=== PATIENT | female | born 1960 | race Caucasian/White ===

== ENCOUNTER → 2016-12-11 | Outpatient (CLI) | payer OTHER ==
--- NOTE | 2016-12-19 13:06 | EM ---
DATE OF SERVICE: 12/11/2016 AGE: 56Y SEX: F INDICATIONS: The patient was monitored for 24 hours. The baseline rhythm appeared to be a sinus mechanism with a minimal heart rate of 44 beats per minute, max heart rate 111 beats per minute, and average heart rate of 64 beats per minutes. Ventricular ectopic events were reported in less than 1% of the total beats count. Supraventricular ectopic events since were reported in less than 1% of the total beats. The Patient had no evidence of sinus falls or sinus arrest seen. No evidence of any sinus tachy or abhishek arrhythmia as well. CONCLUSION: 1. This is a 24 hour Holter monitor. 2. Sinus rhythm as the baseline mechanism. 3. Rare ventricular ectopic events. 4. Rare supraventricular ectopic events. 5. No evidence of sinus pause or sinus arrest. 6. There is no evidence of tachy or bradyarrhythmia.
== END | disposition home or self-care (01) ==
LOC: RADNMMAIN 12:18
PROVIDERS: ATTEND Family Medicine
DX: R00.2 Palpitations (principal)
CPT/HCPCS: 93225; 93226

== ENCOUNTER → 2017-01-22 | Outpatient (CLI) | payer OTHER ==
--- NOTE | 2017-01-22 11:21 | P.STRESS ---
- Stress Test Note Stress Test Results/Findings: Exam Performed: stress echo exercise Exam Date: 01/22/17 Height: 5 ft Weight: 51.71 kg Protocol: Stress Echo Stage: 111 Duration of Exercise: 6 Resting Heart Rate: 78 Resting Blood Pressure: 131/86 Maximum Achieved Heart Rate: 138 Maximum Achieved Blood Pressure: 170/79 85% PMHR: 84 100% PMHR: 93 METS: 10.3 Technologist Comment: Stress Test Results/Findings: this is a stress echo on Katharine Grey [id number] to 1 Baseline EKG shows sinus rhythm normal lites normal intervals patient exercised on Henry protocol for a total of 6 minutes achieving 7 metastases 85% of predicted maximum heart rate without chest pain or diagnostic ST segment depression patient PVCs are noted during the exercise baselineecho shows normal left ventricle size wall motion systolic function.post exercise there is normal hyperdynamic response of all segments of myocardium noted Average exercise tolerance Negative stress test by EKG criteria Negative stress echo
--- NOTE | 2017-01-22 11:43 | ECHOF ---
Referral Reason:R07.9 chest pain MEASUREMENTS -------- HEIGHT: 152.4 cm WEIGHT: 51.7 kg BP: 131/86 RVIDd: 2.7 cm (< 3.3) IVSd: 0.8 cm (0.6 - 1.1) LVIDd: 3.7 cm (3.9 - 5.3) LVPWd: 0.8 cm (0.6 - 1.1) IVSs: 1.3 cm LVIDs: 2.7 cm LVPWs: 1.3 cm Ao Diam: 2.5 cm (2.0 - 3.7) AV Cusp: 1.5 cm (1.5 - 2.6) LA Diam: 2.3 cm (2.7 - 3.8) MV EXCURSION: 17.484 mm (> 18.000) MV EF SLOPE: 128 mm/s (70 - 150) EPSS: 0.4 cm FINDINGS -------- Sinus rhythm. This was a technically good study. Overall left ventricular systolic function is normal with, an EF between 60 - 65 %. The right ventricle is normal in size and function. Normal LA size by volume 22+/-6 ml/m2. The right atrium is normal in size. The aortic valve is trileaflet, and appears structurally normal. No aortic stenosis or regurgitation. The mitral valve leaflets are mildly thickened. There is trace to mild mitral regurgitation. Trace tricuspid regurgitation present. There is no evidence of pulmonary hypertension. The right ventricular systolic pressure, as measured by Doppler, is {RVSP}. Pulmonic valve appears structurally normal. The aortic root size is normal. Normal inferior vena cava with normal inspiratory collapse consistent with estimated right atrial pressure of 5 mmHg. There is a trivial pericardial effusion present. CONCLUSIONS -------- 1. Sinus rhythm. 2. The right ventricular systolic pressure, as measured by Doppler, is {RVSP}. 3. The aortic root size is normal. 4. There is a trivial pericardial effusion present. 5. This was a technically good study. 6. Overall left ventricular systolic function is normal with, an EF between 60 - 65 %. 7. Normal LA size by volume 22+/-6 ml/m2. 8. The aortic valve is trileaflet, and appears structurally normal. No aortic stenosis or regurgitation. 9. The mitral valve leaflets are mildly thickened. 10. There is trace to mild mitral regurgitation. 11. Trace tricuspid regurgitation present. 12. There is no evidence of pulmonary hypertension. [employer] ADVISOR: Sean Eugene RDCS
--- NOTE | 2017-01-22 14:26 | ECHOS ---
Stress Test Results/Findings: Exam Performed: stress echo exercise Exam Date: 01/22/17 Height: 5 ft Weight: 51.71 kg Protocol: Stress Echo Stage: 111 Duration of Exercise: 6 Resting Heart Rate: 78 Resting Blood Pressure: 131/86 Maximum Achieved Heart Rate: 138 Maximum Achieved Blood Pressure: 170/79 85% PMHR: 84 100% PMHR: 93 METS: 10.3 Technologist Comment: Stress Test Results/Findings: this is a stress echo on Katharine Grey [id number] to 1 Baseline EKG shows sinus rhythm normal lites normal intervals patient exercised on Henry protocol for a total of 6 minutes achieving 7 metastases 85% of predicted maximum heart rate without chest pain or diagnostic ST segment depression patient PVCs are noted during the exercise baseline echo shows normal left ventricle size wall motion systolic function.post exercise there is normal hyperdynamic response of all segments of myocardium noted Average exercise tolerance Negative stress test by EKG criteria Negative stress echo MTDD
== END | disposition home or self-care (01) ==
LOC: RADNMMAIN 09:13
PROVIDERS: ATTEND Family Medicine
DX: I08.1 Rheumatic disorders of both mitral and tricuspid valves (principal)
CPT/HCPCS: 93017; 93306; 93350

== ENCOUNTER → 2017-07-09 | Outpatient (CLI) | payer OTHER ==
--- NOTE | 2017-07-09 09:23 | MM ---
Reason for exam: additional evaluation requested from abnormal screening. Last mammogram was performed less than 1 month ago. History: Patient is postmenopausal and has history of other cancer at age 50. Benign left breast aspiration of the left breast, April 23, 2012. Benign cyst aspiration of the left breast, 1994. Took hormonal contraceptives for 2 years beginning at age 20. Physical Findings: Nurse Summary: 1.5cm nodule in the left breast at 4 o'clock (nurse dw). MG 3D Work Up W/Cad LT ML, CC with magnification, and ML with magnification view(s) were taken of the left breast. Prior study comparison: July 04, 2017, bilateral MG 3d screening mammo w/cad. May 15, 2016, bilateral MG 3d screening mammo w/cad. Finding #1: There is a 14 mm obscured oval mass in the lower quadrant, anterior position of the left breast. Finding #2: There are intermediate concern, suspicious fine pleomorphic calcifications in the lower outer quadrant, anterior position of the left breast. These results were verbally communicated with the patient and result sheet given to the patient on 07/09/17. ASSESSMENT: Incomplete: need additional imaging evaluation, BI-RAD 0 RECOMMENDATION: Ultrasound of the left breast.
--- NOTE | 2017-07-09 09:32 | USB ---
Reason for exam: additional evaluation requested from abnormal screening. History: Patient is postmenopausal and has history of other cancer at age 50. Benign left breast aspiration of the left breast, April 23, 2012. Benign cyst aspiration of the left breast, 1994. Took hormonal contraceptives for 2 years beginning at age 20. US Breast Workup Limited LT Left breast ultrasound demonstrates a 1.7 x 1.7 x 1.2cm irregular lesion with calcifications at 3:30. Area not definate mass, may correlate with mammogram but suspicious calcification better seen on mammogram. These results were verbally communicated with the patient and result sheet given to the patient on 07/09/17. ASSESSMENT: High Suspicious, BI-RAD 4C RECOMMENDATION: Stereotactic core biopsy of the left breast. Called Dr. James with mammographic findings and has scheduled an appointment for the patient for 07/10/17 at 10:[address] Bell. PRELIMINARY REPORT CALLED AND FAXED TO DR. BELL ON 07/09/17. [facility]
== END | disposition home or self-care (01) ==
LOC: RADMAMWWP 06:55
PROVIDERS: ATTEND Family Medicine
DX: R92.8 Other abnormal and inconclusive findings on diagnostic imaging of breast (principal)
CPT/HCPCS: 76642; G0206; G0279

== ENCOUNTER → 2017-07-17 | Day surgery (SDC) | payer OTHER ==
[2017-07-17 07:27] VITALS: RESP 16; BMI 22.4
--- NOTE | 2017-07-17 09:26 | PCN ---
PROCEDURE NOTE PREPROCEDURE DIAGNOSIS: Mammographic abnormality with suspicious calcifications noted in the left breast in the lower outer quadrant. POSTPROCEDURE DIAGNOSIS: Mammographic abnormality with suspicious calcifications noted in the left breast in the lower outer quadrant. PROCEDURE: Stereotactic core biopsy. SURGEON: Dr. James. PROCEDURE: The patient is a 57-year-old white female who presented with a mammographic abnormality noted in her left breast. A breast examination was performed. In the right breast, no dominant mass or nodules of concern were noted. In the left breast, some slight fullness was noted in the left lower outer quadrant, but no definitive mass. No axillary adenopathy was noted in either axilla. The patient had also undergone an ultrasound and the ultrasound revealed an area of irregularity, which was felt may correspond with the mammographic abnormality, but no discrete definitive mass was identified. Therefore, it was recommended that the patient undergo a stereotactic core biopsy of the left breast as the area of concern was felt to be seen best on the mammogram. Bilateral mammograms were reviewed and the patient was noted to have an area of pleomorphic calcifications in the left breast in the lower outer quadrant region. The patient was therefore brought to the stereotactic unit and the area in the left breast was targeted using a CC from below approach. The skin was prepped using Betadine and 1% local anesthesia was used to anesthetize the area of concern. A vacuum assisted biopsy device was used and driven to the correct coordinates. Pre-fire and post-fire x-rays were obtained and multiple core biopsies were obtained. The specimen of the radiograph revealed the area of concern had been sampled with microcalcifications in the specimen. A SecurMark marker was then placed and radiograph was performed to assure that it had been deployed. Following this, the specimen was sent for pathology. After discussion with the radiologist, the patient will undergo an ultrasound next week to assure that the area we sampled was indeed consistent with the area of irregularity seen on ultrasound. If not, further evaluation may be necessary. The patient will follow with Dr. James in 1 week. MMODL / IJN: [id number] /
[2017-07-17 09:35] VITALS: BP 126/84; PULSE 65; TEMP 97.8
--- NOTE | 2017-07-17 13:28 | MM ---
EXAMINATION TYPE: MG stereo VAD BX LT DATE OF EXAM: 07/17/2017 COMPARISON: NONE CLINICAL HISTORY: Post ultrasound-guided core biopsy TECHNIQUE: 2 views of the left breast post clip placement. FINDINGS: Clip is within the expected region of the biopsy. IMPRESSION: 1. Successful clip placement postbiopsy. Recommendations: 1. Recommendations are pending pathology results. 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 SEE SURGICAL PATHOLOGY CANCER CASE SUMMARY AND COMMENT. Recommendation Surgical consult. (treatment and follow up) YUED
== END ==
LOC: RADMAMWWP 06:51
PROVIDERS: ATTEND Surgery
DX: D05.12 Intraductal carcinoma in situ of left breast (principal)
CPT/HCPCS: 88305; 88342; 88341; 19081; A4648; J2001

== ENCOUNTER → 2017-07-24 | Outpatient (CLI) | payer OTHER ==
--- NOTE | 2017-07-24 11:32 | USB ---
Reason for exam: clinical finding. History: Patient is postmenopausal and has history of other cancer at age 50. Benign left breast aspiration of the left breast, April 23, 2012. Benign cyst aspiration of the left breast, 1994. Took hormonal contraceptives for 2 years beginning at age 20. Physical Findings: Nurse did not find any significant physical abnormalities on exam. US Breast LT Left breast ultrasound includes all four quadrants, the retroareolar region and axilla. Finding demonstrates a 0.3 x 0.3 x 0.4cm lesion too small to characterize at 1 o'clock. Previous abnormality at 4 o'clock not seen currently likely corresponds to area biopsied by stereo. These results were verbally communicated with the patient and result sheet given to the patient on 07/24/17. ASSESSMENT: Probably benign, BI-RAD 3 RECOMMENDATION: Surgical consultation of the left breast. (for stereo biopsy results, already scheduled) Manage patient on a clinical basis.
== END | disposition home or self-care (01) ==
LOC: RADUSWWP 10:06
PROVIDERS: ATTEND Surgery
DX: R92.8 Other abnormal and inconclusive findings on diagnostic imaging of breast (principal)

== ENCOUNTER → 2017-07-30 | Outpatient (CLI) | payer OTHER ==
--- NOTE | 2017-07-30 09:06 | BMR ---
EXAMINATION TYPE: MR breast BILAT wo/w con DATE OF EXAM: 07/30/2017 COMPARISON: 3-D bilateral breast mammogram July 04, 2017 BI-RADS 0. Diagnostic left breast Three- D mammogram July 09, 2017 BI-RADS 0. Left breast limited ultrasound July 09, 2017 BI-RADS 4C. Complete left breast ultrasound July 24, 2017 BI-RADS 3. HISTORY: Left-sided breast cancer on stereotactic guided core biopsy July 17, 2017 invasive ducta l carcinoma and high-grade ductal carcinoma in situ CONTRAST: Multiplanar, multisequence images of the breasts were acquired utilizing 5 mL intravenous Gadavist ga dolinium contrast. TECHNIQUE: A series of fat and water weighted images in the long and short axis views of both breasts are obtained in conjunction with dynamic contrast MRI with subtraction technique. Three-dimensional and additional postprocessing imaging is created on independent workstation and reviewed during offi cial interpretation of this study. FINDINGS: There is redemonstration of heterogeneously dense fibroglandular tissue throughout both yoselin asts. T2-weighted images show multiple small simple appearing cysts bilaterally. Overall findings are consistent with fibrocystic change. There are benign subcentimeter lymph nodes in bilateral axilla. Lymph nodes are noted slightly more prominent in the left axilla. No definitive greater than 1 cm axi llary or suspicious intramammary adenopathy is identified bilaterally. Regarding the right breast there largest cyst measuring up to 8 mm long axis axial image 23 series 30 1 middle depth upper outer quadrant right breast. Postcontrast images show no suspicious pathologic e nhancement. No suspicious skin thickening is seen. Chest wall is intact. Regarding the left breast artifact from biopsy clip is noted seen best on subtraction images 164 thro ugh 167 in the inferior outer quadrant roughly 4 to 5:00 position left breast anterior to middle dept h. The clip is at anterior aspect of area of irregular masslike enhancement. DynaCAD imaging shows th is area to measure 2.8 cm AP diameter by 0.7 cm transversely by 2.0 cm craniocaudal dimension with pr edominantly benign gradual enhancement, there is a small area of more suspicious enhancement within t he lesion along the posterior inferior lateral aspect that shows rapid uptake and washout. Lesion is roughly 8 cm from the nipple. Remainder of left breast shows no additional areas of pathologic enhancement. No suspicious skin thic kening is seen. Chest wall is intact. No suspicious findings in the visualized thorax are noted. IMPRESSION: Area of masslike enhancement as detailed above corresponds to biopsy-proven carcinoma. No multicentric disease or evidence of invasive malignancy in right breast noted. Biopsy 2 benign findings right breast. Biopsy 6 biopsy-proven carcinoma left breast. Recommendation: Appropriate surgical management left breast.
== END | disposition home or self-care (01) ==
LOC: RADMRIMAIN 06:03
PROVIDERS: ATTEND Internal Medicine Hematology & Oncology
DX: C50.512 Malignant neoplasm of lower-outer quadrant of left female breast (principal)
CPT/HCPCS: 77059; 0159T; A9581

== ENCOUNTER 2017-08-05 09:18 | Day surgery (SDC) | payer OTHER ==
[2017-07-29 11:46] VITALS: BMI 22.4
[~2017-08-05 09:18] MED LIST: ALPRAZolam 0.5 MG TAB PO PRN; DEXAMETHASONE SOD PHOSPHATE 10 MG/ML 1 ML VIAL IV ONE; HEPARIN SODIUM,PORCINE 5,000 UNIT/ML 1 ML VIAL SQ ONE; LACTATED RINGERS 1,000 ML IV SCH; MIDAZOLAM 2 MG/2 ML VIAL IV PRN; MORPHINE SULFATE 2 MG/ML SYRINGE IV PRN; ONDANSETRON 4 MG/2 ML VIAL IVP ONE; Pre Op ABX Message 1 EACH MISC MISCELLANE ONE; SCOPOLAMINE 1.5MG/72HR PATCH TRANSDERM ONE
[2017-08-05] MEDS ORDERED: LIDOCAINE 1% 20 ML VIAL (10MG/ML) FOR IV START INTRADERMA ONE (10:02)
[2017-08-05] MEDS ORDERED: LIDOCAINE 1% INJ 10MG/ML (20 ML MDV) SQ ONE (12:04)
[2017-08-05] MEDS ORDERED: HEPARIN SODIUM,PORCINE 5,000 UNIT/ML 1 ML VIAL SQ ONE (12:28)
[2017-08-05] MEDS ORDERED: METHYLENE BLUE 10 MG/ML (10 ML VIAL) INJ ONE (12:50)
[2017-08-05] MEDS ORDERED: MIDAZOLAM 2 MG/2 ML VIAL ONE (13:12)
[2017-08-05] MEDS ORDERED: HYDROmorphone (PF) 1 MG/ML ONE (13:12)
[2017-08-05] MEDS ORDERED: fentaNYL (PF) 50 MCG/ML 2 ML AMP ONE (13:12)
[2017-08-05] MEDS ORDERED: PROPOFOL 10 MG/ML 20 ML VIAL IV ONE (13:12)
[2017-08-05] MEDS ORDERED: LIDOCAINE 1% INJ 10MG/ML (20 ML MDV) ONE (13:12)
[2017-08-05] MEDS ORDERED: SODIUM CHLORIDE 0.9% 50 ML with ceFAZolin 2,000 MG IV ONE ×2 (13:15)
--- NOTE | 2017-08-05 14:48 | NM ---
EXAMINATION TYPE: NM sentinel node injection DATE OF EXAM: 08/05/2017 COMPARISON: NONE HISTORY: Left-sided breast CA TECHNIQUE AND FINDINGS: The procedure of sentinel lymph node injection was explained to the patient. The benefits, alternatives, and risks were discussed. An informed consent was then obtained. Overlying skin is cleaned with sterile alcohol. Lidocaine buffered with bicarbonate was used as anes thetic into the skin and subcutaneous tissue surrounding the nipple. Following this, 444 uCi Tc 99m Filtered Sulfur Colloid was injected into 4 equivalent doses at 12, 3, 6, and 9:00 position surroundi ng the left nipple intradermally. The injection sites were massaged by nuclear reactor engineer for 10 minutes after injection. T he patient tolerated the procedure well without any immediate complication. The patient was kept in the radiology department for short stay after the procedure and then taken to surgery for surgical pr ocedure what is presumed intraoperative gamma probe will be used for sentinel lymph node detection. IMPRESSION: Left breast radiotracer injection for sentinel node localization as above.
[2017-08-05] MEDS ORDERED: LACTATED RINGERS 1,000 ML IV ONE (15:17)
[2017-08-05] MEDS ORDERED: HYDROmorphone 2 MG/ML 1 ML SYRINGE IV PRN (16:01)
[2017-08-05] MEDS ORDERED: NALOXONE 0.4 MG/ML 1 ML VIAL IV PRN (16:01)
[2017-08-05] MEDS ORDERED: ONDANSETRON 4 MG/2 ML VIAL IVP PRN (16:01)
--- NOTE | 2017-08-05 16:01 | P.OP ---
Date of Procedure: 08/05/17 Preoperative Diagnosis: Left breast cancer Postoperative Diagnosis: Left breast lumpectomy, lymphatic mapping, sentinel node biopsy, axillary node dissection Procedure(s) Performed: Axillary node mapping left axilla, sentinel node biopsy, lumpectomy with biozorb placement tissue rearrangement, axillary node dissection Anesthesia: MEAGHAN Surgeon: Tameka Bell Estimated Blood Loss (ml): 35 Pathology: other (Left breast tissue, sentinel node, axillary contents) Condition: stable Disposition: PACU Indications for Procedure: Left breast cancer Operative Findings: Dense tissue left breast, sentinel node positive for cancer on frozen section Description of Procedure: The patient was taken to the operating room following needle localization of any skin cancer in the left breast and nuclear medicine injection and for sentinel node identification. Following induction of anesthesia the periareolar area was prepped using alcohol. 5 mL of half percent methylene blue was injected. The breast was then massaged for 3 minutes. The breast and axilla were prepped and draped in a sterile fashion. A counter was utilized to identify the area of increased radioactivity in the axilla. Small incision was made and dissection was performed into the axilla at this level. The lymph node was identified which was radioactive. 10 second count was approximately 800 the background count of the axilla 6. The lymph node was sent to pathology for frozen section evaluation. In the antrum an incision was made in the breast at the area of the lumpectomy was performed. Superior and inferior flaps were developed and dissection was performed circumferentially down around the needle and the gallbladder abnormality in the left breast. Wide excision was performed. Margin probe was then used as to evaluate the margins. The anterior margin was positive, deep margin was positive and medial margin was positive. The remaining margins were negative. Anterior skin was stapled. The margin along the be positive. Posterior dissection was carried and the pectoralis muscle and further dissection was performed. Medially additional tissue was obtained and the specimen was painted. The original specimen was painted for orientation as well. The original specimen was sent for radiographic evaluation and the area of concern was confirmed to have been removed. Following this after assured that hemostasis was attained the diagnosis on the frozen section of the axillary node came back as positive for metastatic disease. The wound was therefore packed in the left axilla was Incision was enlarged to the pectoralis major muscle border was identified. This was followed to the area of the pectoralis minor and followed superiorly to the area of the axillary vein. The tissues were swept inferiorly being careful to maintain hemostasis using the LigaSure as well as centimeters the ligation of the vessels of concern. The long thoracic and thoracodorsal nerves were identified and preserved. The intercostal brachial nerves were not preserved. The patient is a small resume a small amount of tissue in this area however did feel that there were several palpable lymph nodes in the specimen. After assured that hemostasis was attained a GLORIA drain was placed. He developed deep tissues were closed using a Vicryl suture followed by closure of the skin using a 4-0 Monocryl. The drain was secured using a nylon suture. The area of the breast was then again approached. Approximately 7 cm x 3 cm tissue mobilization was performed superiorly and approximately 4 x 3 cm tissue mobilization was performed inferiorly such that the adequate mobilization was preformed to cover the "Biozorb. A 4 x 4's Biozorb was then placed and secured in place using 3-0 Vicryl suture and covered with a new breast tissue flaps which had been established. This was done after being assured that hemostasis was attained and the wound had been irrigated. The deep tissues of the skin flaps were then closed with 3-0 Vicryl suture followed by closure with 4-0 Monocryl; the skin was further secured using a running nylon suture. The patient tolerated the procedure in stable condition. All instrument and sponge counts were correct at the end of the case.
--- NOTE | 2017-08-05 16:04 | MM ---
EXAMINATION TYPE: MG pre op needle loc LT, MG surgical specimen LT DATE OF EXAM: 08/05/2017 12:57 PM COMPARISON: NONE HISTORY: Left-sided breast cancer on stereotactic guided core biopsy July 17, 2017 invasive ducta l carcinoma and high-grade ductal carcinoma in situ Informed consent was obtained and all the patient's questions were answered. The clip in question wa s localized mammographically. The standard sterile technique was utilized, as well as appropriate l ocal anesthesia with 1% Lidocaine and bicarbonate. Localization needle followed by placement of a gu idewire was performed under mammographic guidance. Verification images demonstrate appropriate deploy ment of the guidewire. The patient tolerated the procedure well and left the department in stable co ndition. Specimen radiograph demonstrates the clip in question to reside within the specimen. IMPRESSION: Successful needle localization and open biopsy left breast with pathology results pending .
[2017-08-05] MEDS ORDERED: HYDROmorphone 2 MG/ML 1 ML SYRINGE IVP ONE ×3 (16:22→16:51)
[2017-08-05] MEDS ORDERED: DEXTROSE 5%-0.45% NACL 1,000 ML IV SCH (17:00)
[2017-08-05 23:24] VITALS: RESP 16
[2017-08-05] MEDS: HYDROcodone/APAP 5-325MG 1 EACH TAB PO PRN (23:25)
[2017-08-06] MEDS: HEPARIN SODIUM,PORCINE 5,000 UNIT/ML 1 ML VIAL SQ SCH ×2 (00:46→08:40)
[2017-08-06 06:25] LABS: Basophils % (A) 0 %; Eosinophils % (A) 0 %; HCT 36.9 % (34.0-46.0); HGB 11.6 gm/dL (11.4-16.0); Lymphocytes # (A) 0.9 k/uL (1.0-4.8); Lymphocytes % (A) 11 %; MCH 29.5 pg (25.0-35.0); MCHC 31.4 g/dL (31.0-37.0); MCV 93.8 fL (80.0-100.0); Mean Platelet Volume 7.8; Monocytes # (A) 0.4 k/uL (0-1.0); Monocytes % (A) 5 %; Neutrophils # (A) 6.3 k/uL (1.3-7.7); Neutrophils % (A) 82 %; Platelet Count 201 k/uL (150-450); RBC 3.93 m/uL (3.80-5.40); RDW 13.6 % (11.5-15.5); WBC 7.7 k/uL (3.8-10.6)
--- NOTE | 2017-08-06 08:21 | P.DS ---
Providers Expected date of discharge: 08/06/17 Attending physician: Tameka Bell Primary care physician: Devan James [facility] Course: 57-year-old female presented to undergo an elective left breast lumpectomy with sentinel node biopsy and axillary node dissection for left breast cancer deep tissue left breast sentinel node positive for cancer on frozen section. no Postoperatively events. Postop hemoglobin 11.6 white count 7.7. Surgical dressing inspected no redness at site support bra in place. Adequate pain control afebrile. On room air sats were 100%. Patient was felt to be hemodynamically stable and appropriate to proceed with a discharge to home Impression Left breast cancer Status post August 05 left breast lumpectomy, lymphatic mapping, sentinel node biopsy, axillary node dissection, sentinel node positive for cancer on frozen section placement of a GLORIA drain to left breast The above impression and plan of care have been discussed and directed by signing physician. Nupur Pérez nurse practitioner acting as scribe for signing physician. Plan - Discharge Summary Discharge Rx Participant: Yes New Discharge Prescriptions: New HYDROcodone/APAP 5-325MG [[place] 5-325] 1 each PO Q4HR PRN #30 tab PRN Reason: Moderate Pain Continue Vitamin E (Dl,Tocopheryl Acet) [Vitamin E] 400 unit PO DAILY Cyanocobalamin (Vitamin B-12) [Vitamin B-12] 1,000 mcg PO DAILY Cholecalciferol (Vitamin D3) [Vitamin D3] 2,000 unit PO BID Multivitamins, Thera [Multivitamin (formulary)] 1 each DAILY Discharge Medication List Cholecalciferol (Vitamin D3) [Vitamin D3] 2,000 unit PO BID 07/10/17 [History] Cyanocobalamin (Vitamin B-12) [Vitamin B-12] 1,000 mcg PO DAILY 07/10/17 [ History] Multivitamins, Thera [Multivitamin (formulary)] 1 each DAILY 07/10/17 [History] Vitamin E (Dl,Tocopheryl Acet) [Vitamin E] 400 unit PO DAILY 07/10/17 [History] HYDROcodone/APAP 5-325MG [[place]old 5-325] 1 each PO Q4HR PRN #30 tab 08/06/17 [Rx] Follow up Appointment(s)/Referral(s): Tameka Bell MD [STAFF PHYSICIAN] - 1 Week Activity/Diet/Wound Care/Special Instructions: No tub bath for six weeks. May Shower daily. No lifting over 4 pounds for the next 6 weeks. J-P drain in the every hour and record May use ice packs to surgical site. No driving while taking narcotic for pain. wear surgical bra when up Discharge Disposition: HOME SELF-CARE
[2017-08-06] MEDS: HYDROcodone/APAP 5-325MG 1 EACH TAB PO PRN (09:20)
[2017-08-06 09:37] VITALS: BP 139/80; PULSE 64; TEMP 97.9
== END 2017-08-06 10:03 | disposition home or self-care (01) ==
LOC: OR 09:18 → 6PED 16:56 → OR 08-06 10:03
PROVIDERS: ATTEND Surgery
DX: D05.12 Intraductal carcinoma in situ of left breast (principal); Z85.828 Personal history of other malignant neoplasm of skin
CPT/HCPCS: 85025; 76098; 19281; 38792; 38525; 19301; A4648; A9541; J2250; J1170 ×3; J1644 ×2; J1100; J2405; J2001; Q9968; J3010; J0690; J2704

== ENCOUNTER → 2017-08-29 | Outpatient (CLI) | payer OTHER ==
--- NOTE | 2017-08-30 08:38 | ECHOF ---
Referral Reason:C50.212 breast ca, Z01.818 pre chemo MEASUREMENTS -------- HEIGHT: 154.9 cm WEIGHT: 50.8 kg BP: 153/82 IVSd: 1.0 cm (0.6 - 1.1) LVIDd: 3.9 cm (3.9 - 5.3) LVPWd: 1.0 cm (0.6 - 1.1) IVSs: 1.1 cm LVIDs: 2.6 cm LVPWs: 1.6 cm Ao Diam: 3.0 cm (2.0 - 3.7) AV Cusp: 2.0 cm (1.5 - 2.6) LA Diam: 2.5 cm (2.7 - 3.8) MV EXCURSION: 15.293 mm (> 18.000) MV EF SLOPE: 76 mm/s (70 - 150) EPSS: 0.7 cm MV E Gio: 0.75 m/s MV DecT: 236 ms MV A Gio: 0.41 m/s MV E/A Ratio: 1.83 RAP: 5.00 mmHg RVSP: 16.07 mmHg FINDINGS -------- Sinus rhythm. This was a technically adequate study. The left ventricular size is normal. Left ventricular wall thickness is normal. Overall left vent ricular systolic function is mildly impaired with, an EF between 45 - 50 %. Basal inferior LV wall motion is hypokinetic. The right ventricle is normal in size and function. The left atrium is normal in size. The right atrium is normal in size. The aortic valve is trileaflet, and appears structurally normal. No aortic stenosis or regurgitation. There is trace mitral regurgitation. Trace tricuspid regurgitation present. The right ventricular systolic pressure, as measured by Dopp ler, is 16.07mmHg. Pulmonic valve appears structurally normal. The aortic root size is normal. The pericardium is normal. CONCLUSIONS -------- 1. Sinus rhythm. 2. This was a technically adequate study. 3. The left ventricular size is normal. 4. Left ventricular wall thickness is normal. 5. Overall left ventricular systolic function is mildly impaired with, an EF between 45 - 50 %. 6. Basal inferior LV wall motion is hypokinetic. 7. The right ventricle is normal in size and function. 8. The left atrium is normal in size. 9. The right atrium is normal in size. 10. The aortic valve is trileaflet, and appears structurally normal. No aortic stenosis or regurgitat ion. 11. There is trace mitral regurgitation. 12. Trace tricuspid regurgitation present. 13. The right ventricular systolic pressure, as measured by Doppler, is 16.07mmHg. 14. Pulmonic valve appears structurally normal. 15. The aortic root size is normal. 16. The pericardium is normal. [employer]ERS: Laisha Steven RDCS
== END | disposition home or self-care (01) ==
LOC: RADECHMAIN 13:44
PROVIDERS: ATTEND Internal Medicine Hematology & Oncology
DX: Z01.818 Encounter for other preprocedural examination (principal); I51.89 Other ill-defined heart diseases; C50.512 Malignant neoplasm of lower-outer quadrant of left female breast
CPT/HCPCS: 93306

== ENCOUNTER → 2017-08-30 | Outpatient (CLI) | payer OTHER ==
--- NOTE | 2017-09-01 09:04 | PE ---
EXAMINATION TYPE: PET CT fusion skull to thigh DATE OF EXAM: 08/30/2017 COMPARISON: No recent comparisons. Prior PET/CT: None HISTORY: Breast cancer TECHNIQUE: Following the intravenous administration of 12.3 mCi of F-18 FDG, whole body images are p erformed from the skull base to the midthigh. Images are reviewed on the computer in the coronal, ax ial, and sagittal planes. Reconstructed rotating images are created on independent workstation and r eviewed on the computer. A localization and attenuation correction CT is performed in conjunction w ith the PET scan. DLP: 265.71 mGycm SCAN: Initial Blood glucose: 93 mg/dL Average Mediastinum SUV: 1.72 Average Liver SUV: 2.5 FINDINGS: NECK: No abnormal uptake THORAX: There is increased uptake within the postsurgical site of the left breast. Suspicious axillar y uptake is not identified. No mediastinal or internal mammary uptake is identified. This does extend into the chest wall on these images. ABDOMEN: No abnormal uptake PELVIS: No abnormal uptake OSSEOUS STRUCTURES: No abnormal uptake LOCALIZATION CT: The ascending thoracic aorta at the level of main pulmonary artery is 2.9 cm patent main pulmonary artery the bifurcation is 1.7 cm surgical clips are present within the left breast danette margret site COMPARISON: None IMPRESSION: 1. Postsurgical changes left breast from left breast cancer. 2. No suspicious remote uptake to suggest metastatic disease.
== END | disposition home or self-care (01) ==
LOC: RADPETMAIN 07:30
PROVIDERS: ATTEND Internal Medicine Hematology & Oncology
DX: C50.512 Malignant neoplasm of lower-outer quadrant of left female breast (principal); Z98.890 Other specified postprocedural states
CPT/HCPCS: 78815; A9552

== ENCOUNTER 2017-09-01 14:11 | Inpatient (IN) | payer OTHER ==
[2017-09-01] MEDS ORDERED: VANCOMYCIN IV PER PHARMACY 1 EACH MISC MISCELLANE PRN (16:41)
[2017-09-01] MEDS ORDERED: SODIUM CHLORIDE 0.9% 1,000 ML IV STA (16:41)
--- NOTE | 2017-09-01 16:43 | ED ---
General Adult HPI <Say Weinberg - Last Filed: 09/01/17 17:32> - General Source: patient, RN notes reviewed Mode of arrival: ambulatory Limitations: no limitations <Malorie Camacho - Last Filed: 09/01/17 18:27> - General Chief complaint: Skin/Abscess/Foreign Body Stated complaint: post op left breast swelling/redness Time Seen by Provider: 09/01/17 16:32 - History of Present Illness Initial comments: 57-year-old female presents to the emergency department with a chief complaint of left-sided breast pain and redness. Patient had a lumpectomy done by Dr. James, one month ago. About one week ago she started to notice some redness and swelling to her family care doctor put her on Keflex. swelling and Redness seems to be worsening at this time. She denies any fever chills. She went to her doctor today and they referred her here to be admitted for IV antibiotics. She states she's having a lot of tenderness to the area. There is been no drainage. She has been diagnosed with breast cancer and her oncologist. Patient denies any other symptoms at this time. The breast is tender to touch. Patient denies any recent fever, chills, shortness of breath, chest pain, back pain, abdominal pain, nausea vomiting, numbness or tingling, dysuria or hematuria, constipation or diarrhea, headaches or visual changes, or any other current symptoms. (Malorie Camacho) - Related Data Home Medications Medication Instructions Recorded Confirmed Cholecalciferol (Vitamin D3) 2,000 unit PO DAILY 07/10/17 09/01/17 [Vitamin D3] Cyanocobalamin (Vitamin B-12) 1,000 mcg PO DAILY 07/10/17 09/01/17 [Vitamin B-12] Multivitamins, Thera [Multivitamin 1 tab PO DAILY 07/10/17 09/01/17 (formulary)] Vitamin E (Dl,Tocopheryl Acet) 400 unit PO DAILY 07/10/17 09/01/17 [Vitamin E] Curcumin Otc 1 tab PO DAILY 09/01/17 09/01/17 Allergies Allergy/AdvReac Type Severity Reaction Status Date / Time No Known Allergies Allergy Verified 09/01/17 16:34 Review of Systems ROS Other: All systems not noted in ROS Statement are negative. <Say Weinberg J - Last Filed: 09/01/17 17:32> ROS Other: All systems not noted in ROS Statement are negative. <Malorie Camacho - Last Filed: 09/01/17 18:27> ROS Statement: Those systems with pertinent positive or pertinent negative responses have been documented in the HPI. Past Medical History Past Medical History: Cancer Additional Past Medical History / Comment(s): SKIN CANCER. RECENT DX OF BREAST CANCER History of Any Multi-Drug Resistant Organisms: None Reported Past Surgical History: Adenoidectomy, Tonsillectomy Additional Past Surgical History / Comment(s): left breast lumpectomy. BASAL CELL CANCER REMOVED FROM VARIOUS SPOTS Past Anesthesia/Blood Transfusion Reactions: No Reported Reaction Past Psychological History: No Psychological Hx Reported Smoking Status: Never smoker Past Alcohol Use History: None Reported, Rare Past Drug Use History: None Reported - Past Family History Mother Family Medical History: Cancer <Malorie Camacho - Last Filed: 09/01/17 18:27> General Exam Limitations: no limitations Head exam: Present: atraumatic, normocephalic, normal inspection ENT exam: Present: normal exam, mucous membranes moist Neck exam: Present: normal inspection. Absent: tenderness, meningismus, lymphadenopathy Respiratory exam: Present: normal lung sounds bilaterally. Absent: respiratory distress, wheezes, rales, rhonchi, stridor Cardiovascular Exam: Present: regular rate, normal rhythm, normal heart sounds. Absent: systolic murmur, diastolic murmur, rubs, gallop, clicks Extremities exam: Present: normal inspection, full ROM, normal capillary refill. Absent: tenderness, pedal edema, joint swelling, calf tenderness Back exam: Present: normal inspection Neurological exam: Present: alert, oriented X3 Psychiatric exam: Present: normal affect, normal mood Skin exam: Present: warm, dry, other (Patient appears to have an erythematous and swelling to left breast. Patient does appear intact. No drainage was observed.) <Malorie Camacho - Last Filed: 09/01/17 18:27> Vital Signs 09/01/17 09/01/17 14:35 16:57 Temperature 98.0 F Pulse Rate 83 90 Respiratory 18 16 Rate Blood Pressure 150/67 143/81 O2 Sat by Pulse 99 100 Oximetry Medical Decision Making - Lab Data Result diagrams: 09/01/17 17:00 <Say Weinberg - Last Filed: 09/01/17 17:32> - Lab Data Result diagrams: 09/01/17 17:00 09/01/17 17:00 - Radiology Data Radiology results: report reviewed, image reviewed <Malorie Camacho - Last Filed: 09/01/17 18:27> - Medical Decision Making The patient was seen and examined. All diagnostics were reviewed. It is felt as though she would require admission. The case will be discussed with surgery shortly. I have discussed the case with the PA and agree with the findings as documented. (Say Weinberg) 57-year-old female presents with what appears to be a left breast cellulitis that has failed outpatient treatment on Keflex. Ultrasound does show a fluid collection. This time it does not appear to be drainable from external exam. This time we did talk to Dr. Traore who does accept the mission. All questions have been answered. Patient will be admitted at this time. (Malorie Camacho) - Lab Data Lab Results 09/01/17 09/01/17 Range/Units 17:00 17:00 WBC 6.1 (3.8-10.6) k/uL RBC 4.33 (3.80-5.40) m/uL Hgb 12.9 (11.4-16.0) gm/dL Hct 40.7 (34.0-46.0) % MCV 94.0 (80.0-100.0) fL MCH 29.8 (25.0-35.0) pg MCHC 31.7 (31.0-37.0) g/dL RDW 12.2 (11.5-15.5) % Plt Count 248 (150-450) k/uL Neutrophils % 80 % Lymphocytes % 14 % Monocytes % 4 % Eosinophils % 1 % Basophils % 0 % Neutrophils # 4.9 (1.3-7.7) k/uL Lymphocytes # 0.8 L (1.0-4.8) k/uL Monocytes # 0.3 (0-1.0) k/uL Eosinophils # 0.0 (0-0.7) k/uL Basophils # 0.0 (0-0.2) k/uL Sodium 144 (137-145) mmol/L Potassium 4.0 (3.5-5.1) mmol/L Chloride 103 (98-107) mmol/L Carbon Dioxide 28 (22-30) mmol/L Anion Gap 13 mmol/L BUN 12 (7-17) mg/dL Creatinine 0.60 (0.52-1.04) mg/dL Est GFR (MDRD) Af Amer >60 (>60 ml/min/1.73 sqM) Est GFR (MDRD) Non-Af >60 (>60 ml/min/1.73 sqM) Glucose 137 H (74-99) mg/dL Calcium 10.1 (8.4-10.2) mg/dL Total Bilirubin 0.5 (0.2-1.3) mg/dL AST 38 H (14-36) U/L ALT 55 H (9-52) U/L Alkaline Phosphatase 66 (38-126) U/L Total Protein 7.3 (6.3-8.2) g/dL Albumin 4.2 (3.5-5.0) g/dL Disposition <Say Weinberg - Last Filed: 09/01/17 17:32> Decision Date: 09/01/17 Decision Time: 18:27 <Malorie Camacho - Last Filed: 09/01/17 18:27> Clinical Impression: Cellulitis of left breast, Left breast abscess, Failure of outpatient treatment Disposition: ADMITTED IP TO THIS HOSP Condition: Stable Referrals: Devan James MD [Primary Care Provider] - 1-2 days
[2017-09-01] MEDS ORDERED: VANCOMYCIN 1,250 MG in SODIUM CHLORIDE 0.9% 250 ML IVPB STA (16:47)
[2017-09-01] MEDS ORDERED: AMPICILLIN-SULBACTAM 3 GM in SODIUM CHLORIDE 0.9% 100 ML IVPB STA (16:51)
[2017-09-01 17:07] LABS: Basophils % (A) 0 %; Eosinophils % (A) 1 %; HCT 40.7 % (34.0-46.0); HGB 12.9 gm/dL (11.4-16.0); Lymphocytes # (A) 0.8 k/uL (1.0-4.8); Lymphocytes % (A) 14 %; MCH 29.8 pg (25.0-35.0); MCHC 31.7 g/dL (31.0-37.0); Monocytes # (A) 0.3 k/uL (0-1.0); Monocytes % (A) 4 %; Neutrophils # (A) 4.9 k/uL (1.3-7.7); Neutrophils % (A) 80 %; Platelet Count 248 k/uL (150-450); RBC 4.33 m/uL (3.80-5.40); RDW 12.2 % (11.5-15.5); WBC 6.1 k/uL (3.8-10.6)
[2017-09-01] MEDS ORDERED: KETOROLAC 30 MG/ML 1 ML VIAL IVP STA (17:08)
[2017-09-01 17:44] LABS: ALT 55 U/L (9-52); AST 38 U/L (14-36); Albumin 4.2 g/dL (3.5-5.0); Alkaline Phosphatase 66 U/L (38-126); Anion Gap 13 mmol/L; Blood Urea Nitrogen 12 mg/dL (7-17); Calcium 10.1 mg/dL (8.4-10.2); Carbon Dioxide 28 mmol/L (22-30); Chloride 103 mmol/L (98-107); Glucose 137 mg/dL (74-99); Sodium 144 mmol/L (137-145); Total Bilirubin 0.5 mg/dL (0.2-1.3); Total Protein 7.3 g/dL (6.3-8.2)
--- NOTE | 2017-09-01 18:17 | USB ---
EXAMINATION TYPE: US breast limited LT DATE OF EXAM: 09/01/2017 COMPARISON: NONE CLINICAL HISTORY: Pain. Lumpectomy one month ago Findings. There is an elongated fluid collection in the 3:00 position of the left breast that measures 7.5 x 3 cm. There are a few internal echoes. This is seen posterior. IMPRESSION: Large fluid collection is nonspecific. In this patient with recent surgery this could re late to a seroma or chronic hematoma. Abscess is not entirely excluded.
[2017-09-01] MEDS ORDERED: KETOROLAC 30 MG/ML 1 ML VIAL IVP PRN (18:27)
[2017-09-01] MEDS ORDERED: NALOXONE 0.4 MG/ML 1 ML VIAL IV PRN (18:27)
[2017-09-01] MEDS: SODIUM CHLORIDE 0.9% 1,000 ML IV SCH (19:00)
[2017-09-01] MEDS: VANCOMYCIN 1,000 MG in SODIUM CHLORIDE 0.9% 250 ML IVPB SCH (23:20)
[2017-09-02] MEDS: AMPICILLIN-SULBACTAM 3 GM in SODIUM CHLORIDE 0.9% 100 ML IVPB SCH ×4 (02:04→23:15)
[2017-09-02 07:20] LABS: Basophils % (A) 1 %; Eosinophils # (A) 0.2 k/uL (0-0.7); Eosinophils % (A) 5 %; HCT 37.5 % (34.0-46.0); HGB 11.5 gm/dL (11.4-16.0); Lymphocytes # (A) 0.8 k/uL (1.0-4.8); Lymphocytes % (A) 22 %; MCH 29.5 pg (25.0-35.0); MCHC 30.8 g/dL (31.0-37.0); MCV 95.9 fL (80.0-100.0); Mean Platelet Volume 6.9; Monocytes # (A) 0.2 k/uL (0-1.0); Monocytes % (A) 6 %; Neutrophils # (A) 2.4 k/uL (1.3-7.7); Neutrophils % (A) 64 %; Platelet Count 191 k/uL (150-450); RBC 3.91 m/uL (3.80-5.40); WBC 3.8 k/uL (3.8-10.6)
[2017-09-02] MEDS: CYANOCOBALAMIN 500 MCG TAB PO SCH (08:04)
[2017-09-02] MEDS: VITAMIN E (DL,TOCOPHERYL ACET) 400 UNIT CAP PO SCH (08:04)
[2017-09-02] MEDS ORDERED: [UNRECOGNIZED DRUG - OTHER] PO SCH (09:00)
[2017-09-02] MEDS: MULTIVITAMINS, THERA 1 EACH TAB PO SCH (11:52)
[2017-09-02] MEDS: CHOLECALCIFEROL 1,000 UNIT TAB PO SCH (11:52)
[2017-09-02] MEDS: IBUPROFEN 400 MG TAB PO PRN ×2 (11:55→17:46)
--- NOTE | 2017-09-02 11:58 | P.GSHP ---
History of Present Illness H&P Date: 09/02/17 Chief Complaint: Left breast swelling 57-year-old female who presented to the emergency room with a chief complaint of developing left-sided breast discomfort with redness. Patient stated the symptoms started last Friday called the PCPs office who called in a prescription for Keflex. Patient stated that she did start antibiotics over the weekend presented in a follow-up visit to the PCPs office on Friday. stated since starting the antibiotic Keflex that was a slight improvement but the symptoms persist. Patient states that she was seen in PCPs office who recommended that the patient be admitted to the hospital and be initiated on IV antibiotics. Patient is newly diagnosed with breast cancer. On August 06 underwent elective left breast lumpectomy with sentinel node biopsy and axillary node dissection for cancer positive.. Patient does state the only thing that is new last week patient did soak in a tub twice soaking the breast in water. Noted that after she had taken a tub bath in which the breasts were emerged in water she developed the redness to the left breast surgical site. The left breast surgical site no drainage slight swelling slight tenderness to left breast palpable seroma mild redness noted to the distal aspect of the left breast afebrile with a white count of 3.1 this morning. Patient does state since starting IV antibiotics there's been decreased tenderness to the left breast site - Review of Systems Comment: Essentially unremarkable except as mentioned in the present illness Past Medical History Past Medical History: Cancer Additional Past Medical History / Comment(s): SKIN CANCER. RECENT DX OF BREAST CANCER History of Any Multi-Drug Resistant Organisms: None Reported Past Surgical History: Adenoidectomy, Tonsillectomy Additional Past Surgical History / Comment(s): left breast lumpectomy. BASAL CELL CANCER REMOVED FROM VARIOUS SPOTS,. third molar removal Past Anesthesia/Blood Transfusion Reactions: No Reported Reaction Past Psychological History: No Psychological Hx Reported Smoking Status: Never smoker Past Alcohol Use History: None Reported, Rare Past Drug Use History: None Reported - Past Family History Mother Family Medical History: Cancer Father Family Medical History: Myocardial Infarction ([place]) Medications and Allergies Home Medications Medication Instructions Recorded Confirmed Type Cholecalciferol (Vitamin D3) 4,000 unit PO DAILY 07/10/17 09/01/17 History [Vitamin D3] Cyanocobalamin (Vitamin B-12) 1,000 mcg PO DAILY 07/10/17 09/01/17 History [Vitamin B-12] Multivitamins, Thera [Multivitamin 1 tab PO DAILY 07/10/17 09/01/17 History (formulary)] Vitamin E (Dl,Tocopheryl Acet) 400 unit PO DAILY 07/10/17 09/01/17 History [Vitamin E] Curcumin Otc 1 tab PO DAILY 09/01/17 09/01/17 History Allergies Allergy/AdvReac Type Severity Reaction Status Date / Time No Known Allergies Allergy Verified 09/01/17 16:34 Surgical - Exam Vital Signs Temp Pulse Resp BP Pulse Ox 98.0 F 83 18 150/67 99 09/01/17 14:35 09/01/17 14:35 09/01/17 14:35 09/01/17 14:35 09/01/17 14:35 GENERAL APPEARANCE: Pleasant talkative 57-year-old female patient is alert, oriented, in no acute distress. VITAL SIGNS: Reviewed HEENT: Head is normocephalic and atraumatic. Pupils are equal and reactive. The nares are patent. Oropharynx is clear without lesions. NECK: Supple without lymphadenopathy. Traches midline. Breast right breast unremarkable the left breast mild redness with mild swelling to the left breast. No drainage from suture line from surgical site HEART: S1, S2. Regular rate and rhythm. Denies chest pain no murmur LUNGS: No crackles or wheezes are heard. Adequate air movement on room air ABDOMEN: Soft, nontender, nondistended with good bowel sounds. No peritoneal signs. No palpable organomegaly or masses. EXTREMITIES: Normal skin color and turgor. No cyanosis, rash, ulceration, clubbing or edema. Radial pedal pulses are 2/4 bilaterally. NEUROLOGICAL: No focal deficits. Strength and sensation are grossly intact. Results - Labs 09/02/17 06:49 09/01/17 17:00 Abnormal Lab Results - Last 24 Hours (Table) 09/01/17 09/01/17 09/02/17 Range/Units 17:00 17:00 06:49 MCHC 30.8 L (31.0-37.0) g/dL Lymphocytes # 0.8 L 0.8 L (1.0-4.8) k/uL Glucose 137 H (74-99) mg/dL AST 38 H (14-36) U/L ALT 55 H (9-52) U/L Diabetes panel 09/01/17 Range/Units 17:00 Sodium 144 (137-145) mmol/L Potassium 4.0 (3.5-5.1) mmol/L Chloride 103 (98-107) mmol/L Carbon Dioxide 28 (22-30) mmol/L BUN 12 (7-17) mg/dL Creatinine 0.60 (0.52-1.04) mg/dL Glucose 137 H (74-99) mg/dL Calcium 10.1 (8.4-10.2) mg/dL AST 38 H (14-36) U/L ALT 55 H (9-52) U/L Alkaline Phosphatase 66 (38-126) U/L Total Protein 7.3 (6.3-8.2) g/dL Albumin 4.2 (3.5-5.0) g/dL Calcium panel 09/01/17 Range/Units 17:00 Calcium 10.1 (8.4-10.2) mg/dL Albumin 4.2 (3.5-5.0) g/dL Pituitary panel 09/01/17 Range/Units 17:00 Sodium 144 (137-145) mmol/L Potassium 4.0 (3.5-5.1) mmol/L Chloride 103 (98-107) mmol/L Carbon Dioxide 28 (22-30) mmol/L BUN 12 (7-17) mg/dL Creatinine 0.60 (0.52-1.04) mg/dL Glucose 137 H (74-99) mg/dL Calcium 10.1 (8.4-10.2) mg/dL Adrenal panel 09/01/17 Range/Units 17:00 Sodium 144 (137-145) mmol/L Potassium 4.0 (3.5-5.1) mmol/L Chloride 103 (98-107) mmol/L Carbon Dioxide 28 (22-30) mmol/L BUN 12 (7-17) mg/dL Creatinine 0.60 (0.52-1.04) mg/dL Glucose 137 H (74-99) mg/dL Calcium 10.1 (8.4-10.2) mg/dL Total Bilirubin 0.5 (0.2-1.3) mg/dL AST 38 H (14-36) U/L ALT 55 H (9-52) U/L Alkaline Phosphatase 66 (38-126) U/L Total Protein 7.3 (6.3-8.2) g/dL Albumin 4.2 (3.5-5.0) g/dL Assessment and Plan Assessment: Impression Present on admission mild superficial inflammation of the left breast Newly diagnosed left breast cancer Status post August 05 left breast lumpectomy, lymphatic mapping, sentinel node biopsy positive for cancer on frozen section Plan Continue IV antibiotic Unasyn and vancomycin as ordered Resume home meds as appropriate To wear bra went up Reinforce no soaking in tub Prepped for probable discharge in the next 24 hours History and physical dictated for Dr. michele James The above impression and plan of care have been discussed and directed by signing physician. Nupur Pérez nurse practitioner acting as scribe for signing physician.
[2017-09-02] MEDS: VANCOMYCIN 1,000 MG in SODIUM CHLORIDE 0.9% 250 ML IVPB SCH ×2 (12:03→17:46)
[2017-09-02] MEDS: SODIUM CHLORIDE 0.9% 1,000 ML IV SCH (15:58)
--- NOTE | 2017-09-02 16:07 | P.CONS ---
History of Present Illness - Reason for Consult Consult date: 09/02/17 breast cancer Requesting physician: Malorie Camacho - Chief Complaint Left Breast Erythema - History of Present Illness Mrs. Carter is a very pleasant 57 year old female pt of Dr. Somers seen in office on 08/26/17. She had originally presented with an abnormal left breast mammogram revealing abnormal suspicious density in lower outer quadrant, Dr. Bell confirmed with manual exam, diagnostic mammogram done, U/S revealed 1.7 X 1.7 X 1.2cm irregular lesion at 3:30 of left breast, core bx revealed invasive ductal carcinoma, grade III, ER/IA 100%/25%, Her2 +3. Left lumpectomy 08/06/17 and SLNB revealed 2.9cm Grade III invasive ductal carcinoma, SLNB 07/21 positive and axillary lymph node dissection 07/26 lymph nodes positive (total of 2-7 LN +). Pt was due to have port placed this Friday and start adjuvant chemotherapy next week Pt was recovering well after surgery, although started to note increased tenderness, erythema in left breast near surgical site. She recently did mention she has been soaking in warm baths, with surgical breast submerged in water. She was seen by her PCP and prescribed Keflex, she started this on last week, although continued to notice increased redness and pain which prompted her to seek further evaluation in the ED. Denies fevers, chills, or other subjective signs of infection. Denies open areas, or drainage from the breast. She was initiated on IV abx in the ED and a CBC failed to show any leukocytosis. She has remained afebrile since admission, her breast is a little less tender. Review of Systems Constitutional: Denies chills, Denies fever Eyes: denies blurred vision, denies pain Ears, nose, mouth and throat: Denies headache, Denies sore throat Breasts: left: as per HPI, pain, skin changes, swelling Cardiovascular: Denies chest pain, Denies shortness of breath Respiratory: Denies cough Gastrointestinal: Denies abdominal pain, Denies diarrhea, Denies nausea, Denies vomiting Genitourinary: Denies dysuria, Denies hematuria Musculoskeletal: Denies myalgias Integumentary: Denies pruritus, Denies rash Neurological: Denies numbness, Denies weakness Psychiatric: Denies anxiety, Denies depression Endocrine: Denies fatigue, Denies weight change Past Medical History Past Medical History: Cancer Additional Past Medical History / Comment(s): SKIN CANCER. RECENT DX OF BREAST CANCER History of Any Multi-Drug Resistant Organisms: None Reported Past Surgical History: Adenoidectomy, Tonsillectomy Additional Past Surgical History / Comment(s): left breast lumpectomy. BASAL CELL CANCER REMOVED FROM VARIOUS SPOTS,. third molar removal Past Anesthesia/Blood Transfusion Reactions: No Reported Reaction Past Psychological History: No Psychological Hx Reported Smoking Status: Never smoker Past Alcohol Use History: None Reported, Rare Past Drug Use History: None Reported - Past Family History Mother Family Medical History: Cancer Father Family Medical History: Myocardial Infarction ([place]) Medications and Allergies Home Medications Medication Instructions Recorded Confirmed Type Cholecalciferol (Vitamin D3) 4,000 unit PO DAILY 07/10/17 09/01/17 History [Vitamin D3] Cyanocobalamin (Vitamin B-12) 1,000 mcg PO DAILY 07/10/17 09/01/17 History [Vitamin B-12] Multivitamins, Thera [Multivitamin 1 tab PO DAILY 07/10/17 09/01/17 History (formulary)] Vitamin E (Dl,Tocopheryl Acet) 400 unit PO DAILY 07/10/17 09/01/17 History [Vitamin E] Curcumin Otc 1 tab PO DAILY 09/01/17 09/01/17 History Allergies Allergy/AdvReac Type Severity Reaction Status Date / Time No Known Allergies Allergy Verified 09/01/17 16:34 Physical Exam Vitals: Vital Signs Temp Pulse Pulse Resp BP BP Pulse Ox 09/02/17 12:51 98.0 F 187 H 18 122/76 97 09/02/17 10:20 132/77 09/02/17 08:20 97.4 F L 75 18 150/80 100 09/01/17 23:29 97.9 F 73 18 129/80 98 09/01/17 19:24 98 F 87 20 126/74 99 09/01/17 18:27 80 16 154/88 99 09/01/17 16:57 90 16 143/81 100 Intake and Output 09/02/17 09/02/17 09/02/17 06:59 14:59 22:59 Intake Total 240 Balance 240 Intake: Oral 240 - Constitutional General appearance: cooperative, no acute distress - EENT Eyes: no abnormal pupil, EOMI, no fundus normal, no photophobia, normal appearance - Neck supple - Respiratory Respiratory: bilateral: CTA - Cardiovascular Rhythm: regular Heart sounds: normal: S1, S2 - Gastrointestinal General gastrointestinal: normal bowel sounds - Integumentary Left breast with mild palpable deroma, minimal erythema, warmth. No drainage - Neurologic no focal defects noted - Musculoskeletal Musculoskeletal: strength equal bilaterally - Psychiatric Psychiatric: A&O x's 3, appropriate affect, intact judgment & insight Results CBC & Chem 7: 09/02/17 06:49 09/01/17 17:00 Labs: Abnormal Lab Results - Last 24 Hours (Table) 09/01/17 09/01/17 09/02/17 Range/Units 17:00 17:00 06:49 MCHC 30.8 L (31.0-37.0) g/dL Lymphocytes # 0.8 L 0.8 L (1.0-4.8) k/uL Glucose 137 H (74-99) mg/dL AST 38 H (14-36) U/L ALT 55 H (9-52) U/L Comments: breast US report reviewed Assessment and Plan (1) Seroma of breast Narrative/Plan: Per Surgery, Monitoring at this time. Current Visit: Yes Status: Acute Code(s): N64.89 - OTHER SPECIFIED DISORDERS OF BREAST SNOMED Code(s): 509366952 (2) Erythema Narrative/Plan: IV abx, Plan to discharge on PO abx. MEDICAL SCIENTIFIC OFFICER appt made for to reassess left breast, if not worsening, remains afebrile, she will continue with plan for mediport placement this Friday. Current Visit: Yes Status: Acute Code(s): L53.9 - ERYTHEMATOUS CONDITION, UNSPECIFIED SNOMED Code(s): 066581667 (3) Breast cancer in female Narrative/Plan: Triple Postitive Breast Cancer s/p Left Lumpectomy and SLN Biopsy Plan for treatment 6 cycles with TCHP, Radiation to lumpectomy site, completion of one year herceptin, 10 years AI. Under the care of Dr. Somers Current Visit: Yes Status: Acute Code(s): C50.919 - MALIGNANT NEOPLASM OF UNSP SITE OF UNSPECIFIED FEMALE BREAST SNOMED Code(s): 834995991
[2017-09-02] MEDS: ACETAMINOPHEN TAB 325 MG TAB PO PRN (16:14)
[2017-09-02] MEDS ORDERED: LIDOCAINE 1% INJ 10MG/ML (20 ML MDV) ONE (19:07)
--- NOTE | 2017-09-02 19:45 | P.PN ---
Progress Note - Text Patient was seen in conjunction with infectious disease/Dr. Pacheco. After discussion we have decided to aspirate the area of seroma and obtain some fluid for culture and cell count. We have discussed this with the patient including risks and benefits and the patient has agreed to the procedure. I have discussed if I was not able to obtain fluid that we would consider drainage via ultrasound guidance.
--- NOTE | 2017-09-02 19:48 | P.PCN ---
Date of Procedure: 09/02/17 Preoperative Diagnosis: Erythema left breast/seroma at lumpectomy site Postoperative Diagnosis: Same Procedure(s) Performed: Aspiration seroma Anesthesia: local Surgeon: Tameka Bell Pathology: other (Seroma fluid sent for cell count and culture and Gram stain) Condition: stable Description of Procedure: At bedside the area of the left breast was prepped using alcohol. One percent lidocaine was used to anesthetize the area of the skin. This was anesthetized at the most dependent portion as well as the most fluctuant portion. Following this an 18-gauge needle was used to aspirate fluid. Approximately 70 mL of fluid was aspirated. The fluid was sent for cell count as well as culture and Gram stain. At the termination of the procedure there was less fullness at the site of the lumpectomy.
[2017-09-02] MEDS ORDERED: HYDROcodone/APAP 5-325MG 1 EACH TAB PO PRN ×2 (20:35)
[2017-09-02 21:27] LABS: Appearance,BF Hazy; Color,BF Yellow; Nucleated Cells, Body Fluid 145 /uL; RBC, Body Fluid 2160 /uL
[2017-09-02 21:29] LABS: Mononuclear WBC,Body Fluid 22 %; Polynuclear WBC,Body Fluid 75 %; Total Cells Counted,Body Fluid 98
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
[2017-09-03] MEDS: VANCOMYCIN 1,000 MG in SODIUM CHLORIDE 0.9% 250 ML IVPB SCH ×3 (00:24→20:51)
[2017-09-03] MEDS: SODIUM CHLORIDE 0.9% 1,000 ML IV SCH ×3 (06:36→22:08)
[2017-09-03] MEDS ORDERED: VANCOMYCIN TROUGH DUE 1 EACH MISC MISCELLANE ONE (07:00)
[2017-09-03] MEDS: AMPICILLIN-SULBACTAM 3 GM in SODIUM CHLORIDE 0.9% 100 ML IVPB SCH ×2 (08:23→16:47)
--- NOTE | 2017-09-03 09:29 | P.PN ---
Subjective Progress Note Date: 09/03/17 Patient is a 57-year-old white female who is status post left breast lumpectomy and sentinel node biopsy in July 2017. She presented to the hospital with increased redness of the area and swelling at the lumpectomy site. Yesterday she had aspiration of seroma at the site. Cell count revealed 75 poly- nuclear white blood cells, 2160 red blood cells. And 22 mononuclear white blood cells. The Gram stain revealed moderate gram-positive cocci in pairs and chains. The culture at this time is negative. The patient states that she has decreased discomfort and decreased fullness at this site since the aspiration. The erythema has decreased as well. Objective - Vital Signs Vital signs: Vital Signs Temp 97.6 F 09/03/17 08:29 Pulse 68 09/03/17 08:29 Resp 18 09/03/17 08:29 BP 135/81 09/03/17 08:29 Pulse Ox 99 09/03/17 08:29 Intake & Output 09/02/17 09/03/17 09/03/17 18:59 06:59 18:59 Intake Total 500 1740 Balance 500 1740 Intake: Oral 500 1740 Other: # Voids 2 2 - Constitutional General appearance: Present: average body habitus - Respiratory Respiratory: bilateral: CTA - Cardiovascular Rhythm: regular Heart sounds: normal: S1, S2 - Integumentary Integumentary Comment(s): Decreased erythema in the dependent portion of the breast Incision clean and dry Decreased fullness at the area of the incision were seroma was aspirated - Psychiatric Psychiatric: Present: A&O x's 3, appropriate affect, intact judgment & insight - Labs CBC & Chem 7: 09/02/17 06:49 09/01/17 17:00 Labs: Microbiology - Last 24 Hours (Table) 09/02/17 19:00 Gram Stain - Preliminary Aspirate Body Fluid Culture - Preliminary 09/01/17 17:00 Blood Culture - Preliminary Blood No Growth after 24 hours Assessment and Plan Assessment: Impression/plan: 1. 57-year-old white female status post lumpectomy left breast who presents with some erythema/cellulitis at that site 2. Aspiration revealed Gram stain with gram-positive cocci in pairs awaiting cultures 3. We'll continue care as per infectious disease
[2017-09-03] MEDS: VITAMIN E (DL,TOCOPHERYL ACET) 400 UNIT CAP PO SCH (09:44)
[2017-09-03] MEDS: CYANOCOBALAMIN 500 MCG TAB PO SCH (09:44)
[2017-09-03] MEDS: ACETAMINOPHEN TAB 325 MG TAB PO PRN (09:48)
[2017-09-03] MEDS: CHOLECALCIFEROL 1,000 UNIT TAB PO SCH (12:30)
[2017-09-03] MEDS: MULTIVITAMINS, THERA 1 EACH TAB PO SCH (16:47)
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
[2017-09-04] MEDS: AMPICILLIN-SULBACTAM 3 GM in SODIUM CHLORIDE 0.9% 100 ML IVPB SCH ×2 (00:12→08:44)
[2017-09-04] MEDS: IBUPROFEN 400 MG TAB PO PRN (00:19)
[2017-09-04] MEDS: SODIUM CHLORIDE 0.9% 1,000 ML IV SCH (03:57)
[2017-09-04] MEDS: VANCOMYCIN 1,000 MG in SODIUM CHLORIDE 0.9% 250 ML IVPB SCH (05:35)
[2017-09-04 07:44] LABS: Anion Gap 11 mmol/L; Blood Urea Nitrogen 5 mg/dL (7-17); Calcium 9.7 mg/dL (8.4-10.2); Carbon Dioxide 25 mmol/L (22-30); Chloride 107 mmol/L (98-107); Glucose 93 mg/dL (74-99); Potassium 3.9 mmol/L (3.5-5.1); Sodium 143 mmol/L (137-145)
[2017-09-04] MEDS: CYANOCOBALAMIN 500 MCG TAB PO SCH (08:18)
[2017-09-04] MEDS: VITAMIN E (DL,TOCOPHERYL ACET) 400 UNIT CAP PO SCH (08:18)
[2017-09-04 09:32] LABS: Basophils % (A) 1 %; Eosinophils # (A) 0.2 k/uL (0-0.7); Eosinophils % (A) 4 %; HCT 38.9 % (34.0-46.0); HGB 12.5 gm/dL (11.4-16.0); Lymphocytes # (A) 1.2 k/uL (1.0-4.8); Lymphocytes % (A) 28 %; MCH 29.7 pg (25.0-35.0); MCHC 32.3 g/dL (31.0-37.0); MCV 91.9 fL (80.0-100.0); Mean Platelet Volume 7.2; Monocytes # (A) 0.2 k/uL (0-1.0); Monocytes % (A) 5 %; Neutrophils # (A) 2.5 k/uL (1.3-7.7); Neutrophils % (A) 59 %; Platelet Count 237 k/uL (150-450); RBC 4.23 m/uL (3.80-5.40); RDW 11.9 % (11.5-15.5); WBC 4.2 k/uL (3.8-10.6)
[2017-09-04] MEDS: CHOLECALCIFEROL 1,000 UNIT TAB PO SCH (11:44)
[2017-09-04 11:53] VITALS: BP 145/87; PULSE 67; RESP 16; TEMP 98
[2017-09-04] MEDS: MULTIVITAMINS, THERA 1 EACH TAB PO SCH (12:00)
--- NOTE | 2017-09-04 13:09 | P.DS ---
Providers Date of admission: 09/01/17 18:27 Expected date of discharge: 09/04/17 Attending physician: Tameka Bell Consults: 09/01/17 18:28 Consult Physician Routine Consulting Provider: Lam Somers Consult Reason/Comments: breast cancer Do you want consulting provider notified?: Yes 09/02/17 15:56 Consult Physician Urgent Consulting Provider: Hossein Pacheco Consult Reason/Comments: cellulitis left breast Do you want consulting provider notified?: Yes Primary care physician: Devan James [facility] Course: 57-year-old female newly diagnosed with left breast cancer in June 2017 per biopsies underwent a lumpectomy in July 2017. Patient did have the biozorb device implanted to assist with radiation therapy. Patient was seen in a follow -up visit. What was new was that the patient had started to take baths where both breasts were some urge Sten warm bath water. Patient started this last week and noted after an the bath started developing swelling and fullness and tenderness to the left breast. Patient stated that she tried to be seen in the office but there was a snowstorm could not be physically evaluated. By phone conversation Luis was called to the pharmacy's office. Despite antibiotic therapy continued to get worse. Became increasingly more painful with more swelling and tenderness. Patient was admitted to the services of the attending with infectious disease Dr. Pacheco participating in the plan of care. On September 03 patient did undergo aspiration of the seroma with 60 mL from the left breast. They came back positive for gram cocci appeared in chains. Infectious disease indicated that the patient could be discharged home on an oral antibiotic. The cultures at this time were negative to date. Blood cultures were negative. At the time of discharge there was significant improvement in the left breast there was less redness less tenderness and no drainage. Patient was afebrile was felt to be appropriate to be discharged home on the day of discharge the white count was 4.2. Patient was felt to be appropriate to be discharged home both from medicine and infectious disease Impression discharge diagnosis Impression Present on admission cellulitis involving the left breast Status post aspiration of a seroma left breast with 60 mL obtained September 03 which did review Gram stain with gram-positive cocci in pairs Present on admission mild superficial inflammation of the left breast Newly diagnosed left breast cancer June 2017 Status post August 05 left breast lumpectomy, lymphatic mapping, sentinel node biopsy positive for cancer on frozen section The above impression and plan of care have been discussed and directed by signing physician. Nupur Pérez nurse practitioner acting as scribe for signing physician. Patient Condition at Discharge: Stable Plan - Discharge Summary Discharge Rx Participant: No New Discharge Prescriptions: New Moxifloxacin HCl 400 mg PO DAILY #7 tab Acetaminophen Tab [Tylenol] 650 mg PO Q6HR PRN tab PRN Reason: Mild Pain Or Fever > 100.5 Ampicillin-Sulbactam [Unasyn] 3 gm IVPB Q8HR vial Ibuprofen [Motrin] 400 mg PO Q6HR PRN #30 tab PRN Reason: Mild Pain Or Fever > 100.5 Continue Vitamin E (Dl,Tocopheryl Acet) [Vitamin E] 400 unit PO DAILY Cyanocobalamin (Vitamin B-12) [Vitamin B-12] 1,000 mcg PO DAILY Cholecalciferol (Vitamin D3) [Vitamin D3] 4,000 unit PO DAILY Multivitamins, Thera [Multivitamin (formulary)] 1 tab PO DAILY Curcumin Otc 1 tab PO DAILY Discharge Medication List Cholecalciferol (Vitamin D3) [Vitamin D3] 4,000 unit PO DAILY 07/10/17 [History] Cyanocobalamin (Vitamin B-12) [Vitamin B-12] 1,000 mcg PO DAILY 07/10/17 [ History] Multivitamins, Thera [Multivitamin (formulary)] 1 tab PO DAILY 07/10/17 [History ] Vitamin E (Dl,Tocopheryl Acet) [Vitamin E] 400 unit PO DAILY 07/10/17 [History] Curcumin Otc 1 tab PO DAILY 09/01/17 [History] Acetaminophen Tab [Tylenol] 650 mg PO Q6HR PRN tab 09/04/17 [Rx] Ampicillin-Sulbactam [Unasyn] 3 gm IVPB Q8HR vial 09/04/17 [Rx] Ibuprofen [Motrin] 400 mg PO Q6HR PRN #30 tab 09/04/17 [Rx] Moxifloxacin HCl 400 mg PO DAILY #7 tab 09/04/17 [Rx] Follow up Appointment(s)/Referral(s): Devan James MD [Primary Care Provider] - 3 Days ( at 9:00am) Anaeblla Lainez NPC [Nurse Practitioner] - 09/04/17 2:45 pm (SEP 08 at 1:00pm) Tameka Bell MD [STAFF PHYSICIAN] - 1 Week (09-11-17 at 10:00am) Care Plan Goals (MU): No tub bath for six weeks. Shower daily. no soaking the breast No lifting over 10 pounds for the next 6 weeks. May use ice packs to surgical site. No driving while taking narcotic for pain. Discharge Disposition: HOME SELF-CARE
--- NOTE | 2017-09-04 22:05 | P.PN ---
Subjective Progress Note Date: 09/04/17 Principal diagnosis: Pain and swelling left breast 57 year old woman with a new history of breast cancer first diagnosed in June with biopsy. Went for a lumpectomy in July of 2017 and did well and did have the biozorb device implanted to assist with radiation therapy. Was seen on follow up at office and then began to take emersion baths with breasts completely submerged in the warm bath water. Late last week she started to develop swelling and fullness and tenderness to the left breast. she did attempt to be seen but with the snow storm was evaluated by phone and luis was called to her pharmacy. Despite antibiotic therapy she continued to worsen. The rest became increasingly painful, increasing amounts of tenderness in developed significant redness. She constantly was seen by her surgeon and admitted to hospital. Infectious diseases consultation requested regarding the concern to infection to the breast. The patient does feel cold, but she relates it's and normal sensation for which is why she takes warm baths. She's not had distinct chills or rigors. She does feel quite poorly because of the discomfort in the breast. She's no difficulties with weight loss, or night sweats. 09/03/2017 the patient is status post aspiration of 60 mL of material from the left breast. Gram stain has come back as positive for gram-positive cocci appears in chains. She however is feeling better today. No troubles with antibiotic therapy of vancomycin. 09/04/2017 patient continues to improve. Has some minimal fullness posterior to the axillary area that she is noting today. May have some tenderness but she has some minimal tenderness in that area from the surgery. She was overall she feels better with no fevers chills or rigors or sweats. The swelling and tenderness of the breast continues to improve and overall feels considerably better. Objective - Vital Signs Vital signs: Vital Signs Temp 98.0 F 09/04/17 11:40 Pulse 67 09/04/17 11:40 Resp 16 09/04/17 11:40 BP 145/87 09/04/17 11:40 Pulse Ox 98 09/04/17 11:40 Intake & Output 09/04/17 09/04/17 09/05/17 06:59 18:59 06:59 Intake Total 800 Balance 800 Intake: Oral 800 Other: Voiding Method Toilet # Voids 1 3 - Exam 57-year-old woman who is in no acute distress who is of appropriate weight HEENT: Anicteric conjunctiva are pink and moist nasal mucosa grossly intact without significant lesions, there is no thrush. Neck: The neck is supple without significant lymphadenopathy or thyromegaly. Lungs: Good bilateral air entry without significant crackles or wheezing. There is no significant bronchial sounds. There is no egophony or dullness. Heart: Regular rate and rhythm with an audible S1-S2, no S3 no S4. There is no significant murmur click or rub, PMI was nondisplaced. Abdomen: Positive bowel sounds soft and nontender without palpable masses or organomegaly. There was no guarding or rebound. Extremities: The upper extremities have excellent pulses they are symmetric, no significant petechiae or telangiectasia. No splinter hemorrhages were noted. The lower extremities are free from significant edema. The peripheral pulses were 2+ and symmetric. Neuro: Awake alert oriented to person place and time. There are no acute new gross focal sensory motor deficits. With the nurse present the patient's breast is examined. Left breast is evidence of the recent surgical intervention. Surgical incision is healing well. There is no expressible purulence. Distinct erythema to the breast as generally resolved noticed a scant pink discoloration. The very significant tenderness is also markedly improved, and the fluid-filled area is now much improved. She continues to have some minimal tenderness in the left axillary area where the lymph node dissection occurred. - Labs CBC & Chem 7: 09/04/17 06:28 09/04/17 06:28 Labs: Abnormal Lab Results - Last 24 Hours (Table) 09/04/17 Range/Units 06:28 BUN 5 L (7-17) mg/dL Microbiology - Last 24 Hours (Table) 09/01/17 17:00 Blood Culture - Preliminary Blood No Growth after 72 hours 09/02/17 19:00 Gram Stain - Preliminary Aspirate Body Fluid Culture - Preliminary Laboratory Results WBC 4.2 k/uL (3.8-10.6) 09/04/17 06:28 RBC 4.23 m/uL (3.80-5.40) 09/04/17 06:28 Hgb 12.5 gm/dL (11.4-16.0) 09/04/17 06:28 Hct 38.9 % (34.0-46.0) 09/04/17 06:28 MCV 91.9 fL (80.0-100.0) 09/04/17 06:28 MCH 29.7 pg (25.0-35.0) 09/04/17 06: MCHC 32.3 g/dL (31.0-37.0) 09/04/17 06: RDW 11.9 % (11.5-15.5) 09/04/17 06:28 Plt Count 237 k/uL (150-450) 09/04/17 06:28 Neutrophils % 59 % 09/04/17 06:28 Lymphocytes % 28 % 09/04/17 06:28 Monocytes % 5 % 09/04/17 06: Eosinophils % 4 % 09/04/17: Basophils % 1 % 09/04/17 06:28 Neutrophils # 2.5 k/uL (1.3-7.7) 09/04/17 06:28 Lymphocytes # 1.2 k/uL (1.0-4.8) 09/04/17 06:28 Monocytes # 0.2 k/uL (0-1.0) 09/04/17 06:28 Eosinophils # 0.2 k/uL (0-0.7) 09/04/17 06: Basophils # 0.0 k/uL (0-0.2) 09/04/17 06:28 Sodium 143 mmol/L (137-145) 09/04/17 06:28 Potassium 3.9 mmol/L (3.5-5.1) 09/04/17 06:28 Chloride 107 mmol/L (98-107) 09/04/17 06:28 Carbon Dioxide 25 mmol/L (22-30) 09/04/17 06:28 Anion Gap 11 mmol/L 09/04/17 06:28 BUN 5 mg/dL (7-17) L 09/04/17 06:28 Creatinine 0.61 mg/dL (0.52-1.04) 09/04/17 06:28 Est GFR (MDRD) Af Amer >60 (>60 ml/min/1.73 sqM) 09/04/17 06:28 Est GFR (MDRD) Non-Af >60 (>60 ml/min/1.73 sqM) 09/04/17 06:28 Glucose 93 mg/dL (74-99) 09/04/17 06:28 Calcium 9.7 mg/dL (8.4-10.2) 09/04/17 06:28 Total Bilirubin 0.5 mg/dL (0.2-1.3) 09/01/17 17:00 AST 38 U/L (14-36) H 09/01/17 17:00 ALT 55 U/L (9-52) H 09/01/17 17:00 Alkaline Phosphatase 66 U/L (38-126) 09/01/17 17:00 Total Protein 7.3 g/dL (6.3-8.2) 09/01/17 17:00 Albumin 4.2 g/dL (3.5-5.0) 09/01/17 17:00 Fluid Source 09/02/17 19:00 Fluid Color Yellow 09/02/17 19:00 Fluid Appearance Hazy 09/02/17 19:00 Fluid RBC 2160 /uL 09/02/17 19:00 Fluid Nucleated Cells 145 /uL 09/02/17 19:00 Fluid Polynuclear WBCs 75 % 09/02/17 19:00 Fluid Mononuclear WBCs 22 % 09/02/17 19:00 Fluid Eosinophils 3 % 09/02/17 19:00 Vancomycin Trough 22.2 ug/mL 09/03/17 06:16 Microbiology 09/01/17 17:00 Blood Blood Culture - Preliminary No Growth after 72 hours 09/02/17 19:00 Aspirate Gram Stain - Preliminary 09/02/17 19:00 Aspirate Body Fluid Culture - Preliminary Assessment and Plan (1) Breast cancer in female Status: Acute Code(s): C50.919 - MALIGNANT NEOPLASM OF UNSP SITE OF UNSPECIFIED FEMALE BREAST SNOMED Code(s): 599005494 (2) Cellulitis of left breast Narrative/Plan: Pleasant 57-year-old female presents to Hospital with a several-day history of increasing pain and swelling and erythema to her left breast. It is noted she underwent a lumpectomy with biozorb insertion in July 2017. She was doing relatively well and was recovering with the next plans being made for her care. However late last week started having some increasing pain and swelling to her breast. On Friday it was somewhat worse, there was a snowstorm and Luis was called to her pharmacy. I Friday had worsened and she constantly was seen by the surgeon admitted to hospital. With concerns to the significant infection antibiotic therapy was begun. The ultrasound is reviewed showing evidence of fluid collection likely a seroma. The patient over does have a cellulitis of the breast and constantly is discussed with the surgeon and a aspiration of seroma is requested to ensure that this is not a grossly infected collection given her water exposure. At this time vancomycin and Unasyn are being utilized pending further data. With aspiration the breast will have a immediate reduction of pain and swelling which made and also rapidly help the erythema and cellulitis improved. Culture will help further direct treatment antibiotic therapy at discharge. Anti-inflammatories can help her pain. September 03 2017 the patient has had improvement status post aspiration. It is of the aspiration does have gram-positive cocci in chains and pairs hopefully this will be a streptococcal infection if so would hopefully be able to use and a streptococcal quinolone to treat this rest infection. Now showing some improvement after the aspiration and with antibiotic therapy with vancomycin. Will continue current antibiotic therapy will cultures are pending and this will further direct us at discharge. We'll work with the surgeon at discharge for the plan. 09/04/2017 patient continues to have further improvement. The culture is now come back with a culture-negative status. Grams in however did have some bacteria that appear to be streptococcal in nature. With her significant improvement in treatment of an underlying streptococcal infection, the plan is to discharge the patient home on oral moxifloxacin 400 mg a day until she sees her surgeon next week on . In that time her Peavfe-d-Yjih may be placed that she may then initiate her plan for chemotherapy and radiation. As noted may discharge home today and her antibiotic sent to the pharmacy Status: Acute Code(s): N61.0 - MASTITIS WITHOUT ABSCESS SNOMED Code(s): 81513773 (3) Seroma of breast Status: Acute Code(s): N64.89 - OTHER SPECIFIED DISORDERS OF BREAST SNOMED Code(s): 042464789
[2017-09-05] MEDS ORDERED: VANCOMYCIN TROUGH DUE 1 EACH MISC MISCELLANE ONE (04:00)
== END 2017-09-04 14:14 | disposition home or self-care (01) | DRG 601 ==
LOC: EC 14:11 → 6PED 18:27
PROVIDERS: ADMIT Surgery; ATTEND Surgery
PROC: 0H9U3ZX Drainage of Left Breast, Percutaneous Approach, Diagnostic (ICD-10-PCS; principal; 2017-09-02)
DX: N64.89 Other specified disorders of breast (principal); C50.912 Malignant neoplasm of unspecified site of left female breast; B96.89 Other specified bacterial agents as the cause of diseases classified elsewhere; N61.0 Mastitis without abscess; Z82.49 Family history of ischemic heart disease and other diseases of the circulatory system; Z85.828 Personal history of other malignant neoplasm of skin
CPT/HCPCS: 36415; 80048; 80053; 80202; 85025; 87040; 87070; 87205; 89050; 96365; 96367; 96375; 99284

== ENCOUNTER 2017-09-18 11:22 | Day surgery (SDC) | payer OTHER ==
[2017-09-15 14:58] VITALS: BMI 21.4
[~2017-09-18 11:22] MED LIST changes: -ALPRAZolam 0.5 MG TAB PO PRN; -DEXAMETHASONE SOD PHOSPHATE 10 MG/ML 1 ML VIAL IV ONE; -HEPARIN SODIUM,PORCINE 5,000 UNIT/ML 1 ML VIAL SQ ONE; -MIDAZOLAM 2 MG/2 ML VIAL IV PRN; -MORPHINE SULFATE 2 MG/ML SYRINGE IV PRN; +MORPHINE SULFATE 4 MG/ML SYRINGE IV PRN; -ONDANSETRON 4 MG/2 ML VIAL IVP ONE; -SCOPOLAMINE 1.5MG/72HR PATCH TRANSDERM ONE; +fentaNYL (PF) 50 MCG/ML 2 ML AMP IV PRN
[2017-09-18 12:04] VITALS: RESP 16; TEMP 98.4
[2017-09-18] MEDS ORDERED: LIDOCAINE 1% 20 ML VIAL (10MG/ML) FOR IV START INTRADERMA ONE (12:18)
[2017-09-18] MEDS ORDERED: fentaNYL (PF) 50 MCG/ML 2 ML AMP IV ONE (12:26)
--- NOTE | 2017-09-18 12:27 | P.GSHP ---
History of Present Illness H&P Date: 09/18/17 CHIEF COMPLAINT: Breast cancer HISTORY OF PRESENT ILLNESS: The patient is a 57-year-old male diagnosed with breast cancer. He needs a Mediport placement for chemotherapy. PAST MEDICAL HISTORY: See list PAST SURGICAL HISTORY: See list CURRENT MEDICATIONS: See list. ALLERGIES: See list. SOCIAL HISTORY: No active tobacco or alcohol use. FAMILY HISTORY: Noncontributory. REVIEW OF ORGAN SYSTEMS: CONSTITUTIONAL: Has weight loss. PHYSICAL EXAMINATION: Vital signs: Stable GENERAL: Well developed and in no acute distress. Pleasant. HEENT: No sclera icterus. Extraocular movements grossly intact. Moist buccal mucosa. Head is atraumatic, normocephalic. Hears conversational speech. No nasal drainage. NECK: Supple without lymphadenopathy. No JV distention. CHEST: Non-labored respirations and equal bilateral excursions. CARDIOVASCULAR: Regular rate and rhythm. Palpable 2+ radial pulses. ABDOMEN: Nontender. MUSCULOSKELETAL: No clubbing, cyanosis or edema. NEUROLOGIC: No focal or lateralizing signs. PSYCH: Appropriate affect. Alert and oriented to person, place and time. ASSESSMENT: 1. Breast cancer. 2. Need for chemotherapeutic access. PLAN: 1. Agree with Port-A-Cath placement. Past Medical History Past Medical History: Cancer Additional Past Medical History / Comment(s): SKIN CANCER. RECENT DX OF BREAST CANCER History of Any Multi-Drug Resistant Organisms: None Reported Past Surgical History: Adenoidectomy, Tonsillectomy Additional Past Surgical History / Comment(s): left breast lumpectomy. BASAL CELL CANCER REMOVED FROM VARIOUS SPOTS, Past Anesthesia/Blood Transfusion Reactions: No Reported Reaction Smoking Status: Never smoker - Past Family History Mother Family Medical History: Cancer Father Family Medical History: Myocardial Infarction ([place]) Medications and Allergies Home Medications Medication Instructions Recorded Confirmed Type Cholecalciferol (Vitamin D3) 4,000 unit PO DAILY 07/10/17 09/18/17 History [Vitamin D3] Cyanocobalamin (Vitamin B-12) 1,000 mcg PO DAILY 07/10/17 09/18/17 History [Vitamin B-12] Multivitamins, Thera [Multivitamin 1 tab PO DAILY 07/10/17 09/18/17 History (formulary)] Vitamin E (Dl,Tocopheryl Acet) 400 unit PO DAILY 07/10/17 09/18/17 History [Vitamin E] Curcumin Otc 1 tab PO DAILY 09/01/17 09/18/17 History Acetaminophen Tab [Tylenol] 650 mg PO Q6HR PRN tab 09/04/17 09/18/17 Rx Ibuprofen [Motrin] 400 mg PO Q6HR PRN #30 tab 09/04/17 09/18/17 Rx Allergies Allergy/AdvReac Type Severity Reaction Status Date / Time No Known Allergies Allergy Verified 09/18/17 12:03 Surgical - Exam Vital Signs Temp Pulse Resp BP Pulse Ox 98.4 F 72 16 138/72 97 09/18/17 12:03 09/18/17 12:03 09/18/17 12:03 09/18/17 12:03 09/18/17 12:03
[2017-09-18] MEDS ORDERED: ONDANSETRON 4 MG/2 ML VIAL IVP ONE (12:28)
[2017-09-18] MEDS ORDERED: BUPIVACAINE (PF) 0.25% 30 ML VIAL SQ ONE ×2 (13:06→13:15)
[2017-09-18] MEDS ORDERED: HEPARIN SODIUM,PORCINE 100 UNIT/ML 5 ML VIAL IV ONE (13:08)
[2017-09-18] MEDS ORDERED: SODIUM CHLORIDE 0.9% 500 ML with HEPARIN SODIUM,PORCINE 5,000 UNIT IV ONE ×2 (13:09)
[2017-09-18 14:17] VITALS: BP 137/83; PULSE 69
--- NOTE | 2017-09-18 14:22 | P.PCN ---
Date of Procedure: 09/18/17 Description of Procedure: SURGEON: AMMY PINA MD PREOPERATIVE DIAGNOSIS: 1. Need for chemotherapeutic access. 2. History of left breast cancer. POSTOPERATIVE DIAGNOSIS: 1. Need for chemotherapeutic access. 2. History of left breast cancer. OPERATION: 1. Ultrasound guided central venous access of the right internal jugular vein. 2. Ultrasound evaluation of the right internal jugular and carotid artery. 3. Fluoroscopic guidance for central venous access right internal jugular vein, less than 10 sec. 4. Placement of a right internal jugular vein Port-A-Cath 6 Nepalese. ANESTHESIA: MAC with 20 mL 1% lidocaine. ESTIMATED BLOOD LOSS: 5 mL. INDICATIONS: The patient is a 57-year-old female who was diagnosed with left breast cancer. Chemotherapeutic access was requested, hence surgical intervention was described. Benefits, risks, including bleeding, infection, need for further surgery, mechanical complications of her port and potential clot had been described. Informed consent was obtained. DESCRIPTION: Patient was brought into the operating room, laid in supine position. Initial ultrasound guidance of the right internal jugular vein demonstrated no thrombus. The right internal carotid artery was unremarkable. The right neck, shoulder, and chest were prepped and draped in a standard sterile fashion. Prior to incision, a time-out protocol was confirmed with surgical team regarding patient's name including procedure to be performed and 2 grams of Ancef was also given. Using a Sonasite after prepping the chest with Ioban draping, a Sonasite guided access of the right internal jugular vein was obtained with nonpulsatile dark red venous blood. Using a 16 Nepalese needle, the internal jugular vein was cannulized after localizing the skin with anesthetic. A guidewire was placed and confirmed along to the superior vena cava. Next, 2 fingerbreadths below the distal third of the right clavicle, a transverse incision was made approximately 2 cm. Electro-Bovie cautery was used to develop a subcutaneous pocket. On the back table the port and tubing were attached and already heparinized with saline flush. The port was placed into the pocket and found to fit snug. Next, the guidewire sheath was placed over with the guidewire and subsequently removed from the stick site. A tunneler was attached along the distal end of the tubing, which had been secured using the clasp to the hub of the port. The tubing was brought out through the stab site and placed through the catheter sheath. Fluoroscopic imaging for approximately less than 10 seconds in total demonstrated excellent placement without torsion or kink of the port stick site including of the tip along the superior vena cava and right atrial junction. Excellent flow was obtained upon position of the patient's neck midline as well as chin towards the right shoulder. The incision of the port had been closed using 3-0 Vicryl for the deep subcutaneous tissues including dermis in an interrupted fashion. Along the stick site this was also reapproximated using 3-0 Vicryl. The complete closure of the skin was performed using 4-0 Monocryl in a subcuticular fashion. A total of 20 mL of lidocaine was used throughout the operation. Estimated blood loss was approximately less than 5 mL. 5 mL of Heparin lock was injected into her port. The incision had been reapproximated as well using Dermabond and covered with Optifoam. At the end of the procedure, needle, sponge, and instrument count had been verified correct by the surgical asst. The patient was awoken without discomfort. FINDINGS: 1. Patent right internal carotid artery and vein. Plan - Discharge Summary Discharge Rx Participant: Yes New Discharge Prescriptions: No Action Vitamin E (Dl,Tocopheryl Acet) [Vitamin E] 400 unit PO DAILY Cyanocobalamin (Vitamin B-12) [Vitamin B-12] 1,000 mcg PO DAILY Cholecalciferol (Vitamin D3) [Vitamin D3] 4,000 unit PO DAILY Multivitamins, Thera [Multivitamin (formulary)] 1 tab PO DAILY Curcumin Otc 1 tab PO DAILY Acetaminophen Tab [Tylenol] 650 mg PO Q6HR PRN tab PRN Reason: Mild Pain Or Fever > 100.5 Ibuprofen [Motrin] 400 mg PO Q6HR PRN #30 tab PRN Reason: Mild Pain Or Fever > 100.5 Discharge Medication List Cholecalciferol (Vitamin D3) [Vitamin D3] 4,000 unit PO DAILY 07/10/17 [History] Cyanocobalamin (Vitamin B-12) [Vitamin B-12] 1,000 mcg PO DAILY 07/10/17 [ History] Multivitamins, Thera [Multivitamin (formulary)] 1 tab PO DAILY 07/10/17 [History ] Vitamin E (Dl,Tocopheryl Acet) [Vitamin E] 400 unit PO DAILY 07/10/17 [History] Curcumin Otc 1 tab PO DAILY 02/12/18 [History] Acetaminophen Tab [Tylenol] 650 mg PO Q6HR PRN tab 09/04/17 [Rx] Ibuprofen [Motrin] 400 mg PO Q6HR PRN #30 tab 09/04/17 [Rx] Follow up Appointment(s)/Referral(s): Ammy Pina MD [STAFF PHYSICIAN] - As Needed Patient Instructions/Handouts: How to Care for Your Implanted Venous Access Port (DC) Activity/Diet/Wound Care/Special Instructions: No sports activities or lifting greater than 5 pounds for the next 2 weeks. May shower. Remove dressing in 48-72 hours. Discharge Disposition: HOME SELF-CARE
--- NOTE | 2017-09-18 14:32 | XR ---
EXAMINATION TYPE: XR chest 1V confirm line [facility] DATE OF EXAM: 09/18/2017 COMPARISON: Prior exam 08/23/2015 HISTORY: Status post Port-A-Cath placement TECHNIQUE: Single frontal view of the chest is obtained. FINDINGS: Right jugular central venous catheter shows the distal tip overlying the superior vena ca va level, port is overlying the right pectoral region. There is no evident pneumothorax or pleural ef fusion. No other significant interval change. IMPRESSION: No evident consultation status post central venous catheter placement.
--- NOTE | 2017-09-18 15:41 | FL ---
Fluoroscopy HISTORY: Port-A-Cath placement 5 seconds fluoroscopy time supplied to the referring clinician. 1 intraoperative C-arm images docume nt the procedure. See dictated report from general surgery.
== END 2017-09-18 14:53 | disposition home or self-care (01) ==
LOC: OR 11:22
PROVIDERS: ATTEND Surgery Plastic and Reconstructive Surgery
DX: C50.912 Malignant neoplasm of unspecified site of left female breast (principal); Z85.828 Personal history of other malignant neoplasm of skin
CPT/HCPCS: 77001; 36571; 76937; C1788; J1644; J1642; J2405; J3010

== ENCOUNTER → 2017-11-19 | Outpatient (CLI) | payer OTHER ==
--- NOTE | 2017-11-19 17:03 | ECHOF ---
Referral Reason:C50.512 Breast CAZ01.818 preprocedural examination MEASUREMENTS -------- HEIGHT: 152.4 cm WEIGHT: 45.4 kg BP: 120/65 RVIDd: 2.7 cm (< 3.3) IVSd: 0.8 cm (0.6 - 1.1) LVIDd: 3.9 cm (3.9 - 5.3) LVPWd: 0.8 cm (0.6 - 1.1) IVSs: 1.2 cm LVIDs: 2.9 cm LVPWs: 1.3 cm LA Diam: 2.3 cm (2.7 - 3.8) LAESV Index (A-L): 10.61 ml/m Ao Diam: 3.0 cm (2.0 - 3.7) AV Cusp: 1.8 cm (1.5 - 2.6) MV EXCURSION: 15.879 mm (> 18.000) MV EF SLOPE: 73 mm/s (70 - 150) EPSS: 0.7 cm MV E Gio: 0.53 m/s MV DecT: 211 ms MV A Gio: 0.46 m/s MV E/A Ratio: 1.15 FINDINGS -------- Sinus rhythm. This was a technically good study. The left ventricular size is normal. Left ventricular wall thickness is normal. Overall left vent ricular systolic function is low-normal with, an EF between 50 - 55 %. The right ventricle is normal in size. Normal LA size by volume 22+/-6 ml/m2. The right atrium is normal in size. The aortic valve is trileaflet and appears structurally normal. There is trace to mild mitral regurgitation. The tricuspid valve appears structurally normal. Trace/mild (physiologic) pulmonic regurgitation. The aortic root size is normal. Normal inferior vena cava with normal inspiratory collapse consistent with estimated right atrial pre ssure of 5 mmHg. There is no pericardial effusion. CONCLUSIONS -------- 1. Sinus rhythm. 2. This was a technically good study. 3. The left ventricular size is normal. 4. Left ventricular wall thickness is normal. 5. Overall left ventricular systolic function is low-normal with, an EF between 50 - 55 %. 6. The right ventricle is normal in size. 7. Normal LA size by volume 22+/-6 ml/m2. 8. The right atrium is normal in size. 9. The aortic valve is trileaflet and appears structurally normal. 10. There is trace to mild mitral regurgitation. 11. The tricuspid valve appears structurally normal. 12. Trace/mild (physiologic) pulmonic regurgitation. 13. The aortic root size is normal. 14. Normal inferior vena cava with normal inspiratory collapse consistent with estimated right atrial pressure of 5 mmHg. 15. There is no pericardial effusion. COOKER TENDER: Dorota Layton RDCS
== END | disposition home or self-care (01) ==
LOC: RADECHMAIN 11:24
PROVIDERS: ATTEND Internal Medicine Hematology & Oncology
DX: Z01.818 Encounter for other preprocedural examination (principal); C50.512 Malignant neoplasm of lower-outer quadrant of left female breast
CPT/HCPCS: 93306

== ENCOUNTER → 2018-01-23 | Outpatient (CLI) | payer OTHER ==
[2018-01-23 09:08] VITALS: BP 114/70; PULSE 72; TEMP 97.8; BMI 18.9
--- NOTE | 2018-01-23 09:38 | P.GSHP ---
History of Present Illness H&P Date: 01/23/18 Patient is status post lumpectomy for a T2N1M0 grade III invasive ductal left breast cancer on 08-05-17. She is finished with a course of chemotherapy. She completed Taxotere/carboplatin. She is continuing to receive per Perjetta and Herceptin for the remainder of the year. She will start radiation therapy next week. She states the left breast gets sore when she does heavy lifting. At his time no symptoms related to the breast. Physical examination: Lungs: Clear Heart: Regular rate and rhythm Patient with a Mediport in the right chest wall Right breast: POSITIONAL exam no dominant masses or nodules of concern Right axilla: Shotty adenopathy not concerning Left breast: Status post lumpectomy multiple positional exam no masses of concern Left axilla: No adenopathy of concern Patient has some mild swelling of the left upper arm and will be referred to lymphedema specialist Impression/plan: 1. Patient status post lumpectomy/axillary node dissection 2. Patient status post chemotherapy is still on per Lulu and Herceptin 3. Patient to start radiation therapy next week 4. Left breast mammogram 5. follow up in 3 months CC: Dr. Devan James, DR. Somers Past Medical History Past Medical History: Cancer Additional Past Medical History / Comment(s): SKIN CANCER. BREAST CANCER 2017 History of Any Multi-Drug Resistant Organisms: None Reported Past Surgical History: Adenoidectomy, Tonsillectomy Additional Past Surgical History / Comment(s): left breast lumpectomy. BASAL CELL CANCER REMOVED FROM VARIOUS SPOTS, Past Anesthesia/Blood Transfusion Reactions: No Reported Reaction Past Psychological History: No Psychological Hx Reported Additional Psychological History / Comment(s): lives in the family home with her . Adult son has moved back home to help. Currently not working. No experience. No extensive travel. No animal exposures. No tobacco use or alcohol use. No recreational drug use Smoking Status: Never smoker Past Alcohol Use History: None Reported, Rare Past Drug Use History: None Reported - Past Family History Mother Family Medical History: Cancer Additional Family Medical History / Comment(s): leukemia Father Family Medical History: Dementia, Myocardial Infarction ([place]) Medications and Allergies Home Medications Medication Instructions Recorded Confirmed Type Cholecalciferol (Vitamin D3) 4,000 unit PO QAM 07/10/17 01/23/18 History [Vitamin D3] Cyanocobalamin (Vitamin B-12) 1,000 mcg PO DAILY 07/10/17 09/18/17 History [Vitamin B-12] Multivitamins, Thera [Multivitamin 1 tab PO QAM 07/10/17 01/23/18 History (formulary)] Vitamin E (Dl,Tocopheryl Acet) 400 unit PO QAM 07/10/17 01/23/18 History [Vitamin E] Curcumin Otc 1 tab PO QAM 09/01/17 01/23/18 History Acetaminophen Tab [Tylenol] 650 mg PO Q6HR PRN tab 09/04/17 01/23/18 Rx Prochlorperazine [Compazine] 5 mg PO DAILY PRN 01/23/18 01/23/18 History Allergies Allergy/AdvReac Type Severity Reaction Status Date / Time No Known Allergies Allergy Verified 09/18/17 12:03 Surgical - Exam Vital Signs Temp Pulse BP Pulse Ox 97.8 F 72 114/70 100 01/23/18 09:04 01/23/18 09:04 01/23/18 09:04 01/23/18 09:04
--- NOTE | 2018-01-26 08:54 | MM ---
Reason for exam: follow-up at short interval from prior study. Last mammogram was performed 7 months ago. History: Patient is postmenopausal, has history of breast cancer at age 57, and has history of other cancer at age 50. Malignant MG pre op needle loc LT of the left breast, August 05, 2017. Lumpectomy of the left breast, August 05, 2017. Malignant MG stereo VAD BX LT of the left breast, July 17, 2017. Benign left breast aspiration of the left breast, April 23, 2012. Benign cyst aspiration of the left breast, 1994. Took hormonal contraceptives for 2 years beginning at age 20. Physical Findings: Breast exam performed by Dr. Bell. MG 3D Diag Mammo W/Cad LT CC and MLO view(s) were taken of the left breast. Prior study comparison: July 09, 2017, left breast MG 3d work up w/cad LT. July 04, 2017, bilateral MG 3d screening mammo w/cad. Skin thickened distortion consistent with post therapy change. These results were verbally communicated with the patient and result sheet given to the patient on 01/23/18. ASSESSMENT: Probably benign, BI-RAD 3 RECOMMENDATION: Return to routine screening mammogram schedule for both breasts. Back on schedule for June 2018.
== END | disposition home or self-care (01) ==
LOC: WWCWWP 08:52
PROVIDERS: ATTEND Surgery
DX: Z08 Encounter for follow-up examination after completed treatment for malignant neoplasm (principal); Z85.3 Personal history of malignant neoplasm of breast
CPT/HCPCS: 77061; 77065

== ENCOUNTER → 2018-01-30 | Outpatient (CLI) | payer OTHER ==
--- NOTE | 2018-01-30 14:08 | BD ---
EXAMINATION TYPE: Axial Bone Density DATE OF EXAM: 01/30/2018 COMPARISON: NONE CLINICAL HISTORY: 57 YR OLD FEMALE.....ICD-10 CODE: N95.9 MENOPAUSAL AND PERIMENOPAUSAL DISORDER Height: 60.3 Weight: 96 FRAX RISK QUESTIONS: NOTHING TO NOTE HERE RISK FACTORS HISTORY OF: Active: FAIRLY Diet low in dairy products/other sources of calcium: NO Postmenopausal woman: AT AGE 50 MEDICATIONS: Additional Medications: HX OF CHEMO AND RADIATION NOW, VIT D, TUMS, REFLUX MEDS, Additional History: LT BREAST CANCER, GOING THROUGH TREATMENT NOW, EXAM MEASUREMENTS: Bone mineral densitometry was performed using the [employer]. Bone mineral density as measured about the Lumbar spine is: ----- L1-L4(G/cm2): 0.772 T Score Values are as follows: ----- L1: -3.1 ----- L2: -3.1 ----- L3: -3.1 ----- L4: -4.4 ----- L1-L4: -3.4 Bone mineral density BASELINE STUDY Bone mineral density about the R hip (g/cm2): 0.814 Bone mineral density about the L hip (g/cm2): 0.862 T Score values are as follows: -----R Neck: -2.0 -----L Neck: -2.1 -----R Total: -1.5 -----L Total: -1.2 Bone mineral density BASELINE STUDY FRAX%s: THERE IS A 4.9% CHANCE OF A MAJOR OSTEOPOROSIS AND A 1.3% FOR A HIP FX.....PROBABILITY OF FX IN 10 YRS TIME IMPRESSION: Osteoporosis (T Score less than -2.5) with regards to the lumbar spine. There is increased fracture risk and therapy is usually indicated based on age. Re-Screen 1-2 years. NOTE: T-SCORE=SD OF THE YOUNG ADULT MEAN.
== END | disposition home or self-care (01) ==
LOC: RADBDWWP 10:22
PROVIDERS: ATTEND Family Medicine
DX: M81.0 Age-related osteoporosis without current pathological fracture (principal)
CPT/HCPCS: 77080

== ENCOUNTER → 2018-02-04 | Outpatient (CLI) | payer OTHER ==
--- NOTE | 2018-02-04 14:22 | XR ---
Bilateral knees HISTORY: Pain x1 month, history of breast carcinoma 3 views of each knee submitted on a total of 6 films, comparison to previous bilateral knee 11/12/2010 Bone mineralization, joint spaces and alignment are within normal limits. No evident joint effusion. Soft tissue calcification in the medial right leg is likely vascular. Minimal marginal spurring in th e medial compartments may be indicative of mild osteoarthritis. IMPRESSION: Stable findings, mild osteoarthritis suspected.
--- NOTE | 2018-02-04 14:24 | XR ---
Thoracic spine HISTORY: Pain, breast carcinoma 2 views of the thoracic spine submitted on 3 images There is a right jugular central venous catheter with the distal tip overlying the superior vena cava . S-shaped thoracic scoliosis is present. Thoracic vertebral bodies show preserved height and bone mi neralization. Disc spaces are maintained. IMPRESSION: Mild scoliosis.
--- NOTE | 2018-02-04 14:29 | XR ---
Lumbar spine HISTORY: Breast carcinoma 3 views of the lumbar spine Comparison to previous lumbar spine x-ray dated 10/19/2010 Lumbar vertebral bodies show stable height, alignment, and bone mineralization. Disc spaces are maint ained. IMPRESSION: No acute abnormality. Bone scan or MRI may be of increased sensitivity.
== END | disposition home or self-care (01) ==
LOC: RADXRMAIN 10:21
PROVIDERS: ATTEND Internal Medicine Hematology & Oncology
DX: M41.84 Other forms of scoliosis, thoracic region (principal); C50.512 Malignant neoplasm of lower-outer quadrant of left female breast; E44.1 Mild protein-calorie malnutrition; B37.0 Candidal stomatitis; H93.11 Tinnitus, right ear; M81.0 Age-related osteoporosis without current pathological fracture
CPT/HCPCS: 72072; 72100

== ENCOUNTER → 2018-02-17 | Outpatient (CLI) | payer OTHER ==
--- NOTE | 2018-02-17 14:52 | NM ---
EXAMINATION TYPE: NM bone scan whole body DATE OF EXAM: 02/17/2018 COMPARISON: PET scan to 1018 HISTORY: Breast cancer Delayed whole-body scanning was performed following the injection of 23.9 mCi Tc 99m MDP. Images acq uired 3 hours post injection. FINDINGS: Focal increased tensile uptake involving the anterior margin the left eighth or ninth rib. Abnormal uptake involving the knees likely post arthritic. No suspicious areas of abnormal increased or reduced uptake identified. IMPRESSION: There is intense focal increased uptake involving the anterior margin the left eighth or ninth rib. N o corresponding abnormality seen by recent PET scan dated 08/30/2017. Finding nonspecific. Correlate w ith x-ray as clinically warranted.
== END | disposition home or self-care (01) ==
LOC: RADNMMAIN 10:15
PROVIDERS: ATTEND Internal Medicine Hematology & Oncology
DX: C50.512 Malignant neoplasm of lower-outer quadrant of left female breast (principal); G89.29 Other chronic pain
CPT/HCPCS: 78306; A9503; J1642

== ENCOUNTER → 2018-04-07 | Outpatient (CLI) | payer OTHER ==
--- NOTE | 2018-04-08 14:44 | ECHOF ---
Referral Reason:Z51.11 Encounter for antineoplastic chemotherapy MEASUREMENTS -------- HEIGHT: 152.4 cm WEIGHT: 43.1 kg BP: RVIDd: 2.6 cm (< 3.3) IVSd: 0.6 cm (0.6 - 1.1) LVIDd: 4.1 cm (3.9 - 5.3) LVPWd: 0.7 cm (0.6 - 1.1) IVSs: 1.2 cm LVIDs: 2.8 cm LVPWs: 1.1 cm LAESV Index (A-L): 15.38 ml/m Ao Diam: 3.2 cm (2.0 - 3.7) AV Cusp: 1.7 cm (1.5 - 2.6) LA Diam: 1.3 cm (2.7 - 3.8) MV EXCURSION: 14.577 mm (> 18.000) MV EF SLOPE: 123 mm/s (70 - 150) EPSS: 0.5 cm MV E Gio: 0.67 m/s MV DecT: 213 ms MV A Gio: 0.61 m/s MV E/A Ratio: 1.10 RAP: 5.00 mmHg RVSP: 9.71 mmHg FINDINGS -------- Sinus rhythm. This was a technically good study. The left ventricular size is normal. Left ventricular wall thickness is normal. Overall left vent ricular systolic function is mildly impaired with, an EF between 45 - 50 %. The right ventricle is normal in size and function. Normal LA size by volume 22+/-6 ml/m2. RA appears enlarged. Aortic valve is trileaflet and is mildly thickened. There is no evidence of aortic regurgitation. There is no evidence of aortic stenosis. The mitral valve leaflets are mildly thickened. There is trace to mild mitral regurgitation. Trace tricuspid regurgitation present. Right ventricular systolic pressure is normal at < 35 mmHg. There is no evidence of pulmonary hypertension. The pulmonic valve was not well visualized. The aortic root size is normal. Normal inferior vena cava with normal inspiratory collapse consistent with estimated right atrial pre ssure of 5 mmHg. There is no pericardial effusion. CONCLUSIONS -------- 1. Sinus rhythm. 2. This was a technically good study. 3. The left ventricular size is normal. 4. Left ventricular wall thickness is normal. 5. Overall left ventricular systolic function is mildly impaired with, an EF between 45 - 50 %. 6. Normal LA size by volume 22+/-6 ml/m2. 7. RA appears enlarged. 8. Aortic valve is trileaflet and is mildly thickened. 9. The mitral valve leaflets are mildly thickened. 10. There is trace to mild mitral regurgitation. 11. Trace tricuspid regurgitation present. 12. Right ventricular systolic pressure is normal at < 35 mmHg. 13. There is no evidence of pulmonary hypertension. 14. The pulmonic valve was not well visualized. 15. The aortic root size is normal. 16. There is no pericardial effusion. MID LEVEL DEVELOPER: Sean uEgene RDCS
== END | disposition home or self-care (01) ==
LOC: RADECHMAIN 16:22
PROVIDERS: ATTEND Internal Medicine Hematology & Oncology
DX: Z51.11 Encounter for antineoplastic chemotherapy (principal); I08.0 Rheumatic disorders of both mitral and aortic valves
CPT/HCPCS: 93306

== ENCOUNTER → 2018-04-23 | Outpatient (CLI) | payer OTHER ==
[2018-04-23 10:14] VITALS: BP 117/75; PULSE 64; RESP 12; TEMP 98; BMI 18.9
--- NOTE | 2018-04-23 10:47 | P.GSHP ---
History of Present Illness H&P Date: 04/23/18 A shunt is a 57-year-old white female who is status post lumpectomy for a T2 N1 M0 grade 3 invasive ductal carcinoma of the left breast. She completed a course of chemotherapy. She completed Taxotere/carboplatin. She continues to receive perjetta and Herceptin till July 2018. Completed radiation therapy. She was hormone receptor positive and HER-2/shirley positive. She is also on Arimidex. They should this time is no complaints related to her breasts. She has no masses or nodules in her breasts. The patient had a left breast mammogram on 7617. The findings were felt to be BIRADS 3 and the patient is going to have repeat bilateral mammogram done in July 2018. The patient has some persistent swelling in the lateral aspect of her left breast and she has been ordered a compression bra from physical therapy. Family History: mother: leukemia Hormonal History: menarche: 13 : 2, breast fed: both, first at 25 menopause: 50 BCP: 6 months hormones: none Past surgical history: 1. Tonsilloadenoidectomy 2. Left breast lumpectomy Past medical history: Osteoporosis Social History: smoke: none alcohol; none drugs: none - Constitutional Comment: occasional hot flashes Constitutional: Denies chills, Denies fever - EENT Comment: night vision decreased Eyes: denies blurred vision, denies pain Ears, nose, mouth and throat: Denies headache, Denies sore throat - Breasts Breasts: bilateral: as per HPI - Cardiovascular Cardiovascular: Denies chest pain, Denies shortness of breath - Respiratory Respiratory: Denies cough, Denies 7 - Gastrointestinal Gastrointestinal: Reports diarrhea, Denies abdominal pain, Denies nausea, Denies vomiting - Genitourinary (Female) Genitourinary: Denies dysuria, Denies hematuria - Menstruation Menstruation: Reports postmenopausal - Musculoskeletal Comment: arthritis knees and back - Integumentary Integumentary: Denies pruritus, Denies rash - Neurological Comment: 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 BREAST CANCER 07/2017 History of Any Multi-Drug Resistant Organisms: None Reported Past Surgical History: Adenoidectomy, Tonsillectomy Additional Past Surgical History / Comment(s): left breast lumpectomy. BASAL CELL CANCER REMOVED FROM VARIOUS SPOTS, Past Anesthesia/Blood Transfusion Reactions: No Reported Reaction Past Psychological History: No Psychological Hx Reported Additional Psychological History / Comment(s): lives in the family home with her . Adult son has moved back home to help. Currently not working. No experience. No extensive travel. No animal exposures. No tobacco use or alcohol use. No recreational drug use Smoking Status: Never smoker Past Alcohol Use History: None Reported, Rare Past Drug Use History: None Reported - Past Family History Mother Family Medical History: Cancer Additional Family Medical History / Comment(s): leukemia Father Family Medical History: Dementia, Myocardial Infarction ([place]) Additional Family Medical History / Comment(s): PAST IN DECEMBER 2017 Medications and Allergies Home Medications Medication Instructions Recorded Confirmed Type Cholecalciferol (Vitamin D3) 4,000 unit PO QAM 07/10/17 04/23/18 History [Vitamin D3] Cyanocobalamin (Vitamin B-12) 1,000 mcg PO DAILY 07/10/17 04/23/18 History [Vitamin B-12] Multivitamins, Thera [Multivitamin 1 tab PO QAM 07/10/17 04/23/18 History (formulary)] Vitamin E (Dl,Tocopheryl Acet) 400 unit PO QAM 07/10/17 04/23/18 History [Vitamin E] Curcumin Otc 1 tab PO QAM 09/01/17 04/23/18 History Acetaminophen Tab [Tylenol] 650 mg PO Q6HR PRN tab 09/04/17 04/23/18 Rx Anastrozole [Arimidex] 1 mg PO DAILY 04/23/18 04/23/18 History Calcium Carbonate [Tums] 500 mg PO DAILY 04/23/18 04/23/18 History Risedronate Sodium [Actonel] 35 mg PO Q7DAYS 04/23/18 04/23/18 History Allergies Allergy/AdvReac Type Severity Reaction Status Date / Time No Known Allergies Allergy Verified 04/23/18 10:04 Surgical - Exam Vital Signs Temp Pulse Resp BP Pulse Ox 98.0 F 64 12 117/75 99 04/23/18 10:08 04/23/18 10:08 04/23/18 10:08 04/23/18 10:08 04/23/18 10:08 BMI 18.9 - General thin well developed, no distress - Eyes normal ocular movement - ENT no hearing loss, no congestion - Neck no masses, trachea midline - Respiratory normal respiratory effort, clear to auscultation - Cardiovascular Rhythm: regular Heart Sounds: normal: S1, S2 - Abdomen Abdomen: soft - Integumentary no rash, no abnormal pigmentation - Neurologic no disoriented, no combative - Musculoskeletal normal gait, normal posture - Psychiatric oriented to time, oriented to person, oriented to place, speech is normal, memory intact Breast examination: Right breast: Multi-positional exam no dominant mass or nodule is of concern Right axilla: No adenopathy of concern Port-A-Cath is in place in the right chest wall no evidence of any infection Left breast: Slight distortion related to prior lumpectomy, incision clean and dry, no evidence of infection, multi-positional exam no dominant masses or nodules of concern no evidence of recurrent disease Left axilla: No adenopathy of concern Results Left breast mammogram from 76 report reviewed Assessment and Plan Assessment: Impression: 1. Patient is status post left breast lumpectomy first stage 2 breast cancer, the patient is currently finishing a course of per Heide and Herceptin. She has finished radiation therapy and chemotherapy. She has recently started on Arimadex. 2. Osteoporosis, patient started Actinal 3. Loss related to the chemotherapy improving 4. 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 Patient is due for bilateral mammogram in physician exam in July 2. Medical management of medical problems 3. No evidence of recurrent cancer at this time Cc: Dr.Aaron James
== END | disposition home or self-care (01) ==
LOC: WWCWWP 09:54
PROVIDERS: ATTEND Surgery
DX: Z53.9 Procedure and treatment not carried out, unspecified reason (principal)

== ENCOUNTER → 2018-05-21 | Outpatient (CLI) | payer OTHER ==
--- NOTE | 2018-05-22 10:39 | ECHOF ---
Referral Reason:C50.512 Breast CA, Z01.818 Chemo MEASUREMENTS -------- HEIGHT: 152.4 cm WEIGHT: 44.0 kg BP: RVIDd: 2.6 cm (< 3.3) IVSd: 0.8 cm (0.6 - 1.1) LVIDd: 3.4 cm (3.9 - 5.3) LVPWd: 1.0 cm (0.6 - 1.1) IVSs: 1.2 cm LVIDs: 2.2 cm LVPWs: 1.2 cm LA Diam: 2.5 cm (2.7 - 3.8) LAESV Index (A-L): 21.75 ml/m Ao Diam: 2.8 cm (2.0 - 3.7) AV Cusp: 1.2 cm (1.5 - 2.6) LA Diam: 1.8 cm (2.7 - 3.8) MV EXCURSION: 16.356 mm (> 18.000) MV EF SLOPE: 124 mm/s (70 - 150) EPSS: 0.3 cm MV E Gio: 0.67 m/s MV DecT: 141 ms MV A Gio: 0.54 m/s MV E/A Ratio: 1.25 RAP: 5.00 mmHg RVSP: 21.84 mmHg FINDINGS -------- Sinus rhythm. This was a technically good study. LV size, wall thickness and systolic function are normal, with an EF greater than 55%. The left monica tricular size is normal. The right ventricle is normal in size. The left atrial size is normal. The right atrial size is normal. The aortic valve is trileaflet, and appears structurally normal. No aortic stenosis or regurgitation. Mild mitral annular calcification present. Mild mitral regurgitation is present. Mild tricuspid regurgitation present. There is no evidence of pulmonary hypertension. The right v entricular systolic pressure, as measured by Doppler, is 21.84mmHg. There is no pulmonic regurgitation present. The aortic root size is normal. There is no pericardial effusion. CONCLUSIONS -------- 1. LV size, wall thickness and systolic function are normal, with an EF greater than 55%. 2. The left ventricular size is normal. 3. The right ventricle is normal in size. 4. The left atrial size is normal. 5. The right atrial size is normal. 6. The aortic valve is trileaflet, and appears structurally normal. No aortic stenosis or regurgitati on. 7. Mild mitral annular calcification present. 8. Mild mitral regurgitation is present. 9. Mild tricuspid regurgitation present. 10. There is no evidence of pulmonary hypertension. 11. The right ventricular systolic pressure, as measured by Doppler, is 21.84mmHg. 12. There is no pulmonic regurgitation present. 13. The aortic root size is normal. 14. There is no pericardial effusion. CAT DOG OR OTHER PET GROOMER: Hyun Solomon RDCS
== END ==
LOC: RADECHMAIN 15:35
PROVIDERS: ATTEND Internal Medicine Hematology & Oncology
DX: Z01.818 Encounter for other preprocedural examination (principal); I08.1 Rheumatic disorders of both mitral and tricuspid valves
CPT/HCPCS: 93306

== ENCOUNTER → 2018-07-01 | Outpatient (CLI) | payer OTHER ==
--- NOTE | 2018-07-01 11:24 | US ---
EXAMINATION TYPE: US abdomen complete DATE OF EXAM: 07/01/2018 COMPARISON: CT, BR CLINICAL HISTORY: R10.9 Abd pain. RUQ and sometimes LUQ pain x 2 weeks, and noted after meals; HX Hui ast CA EXAM MEASUREMENTS: Liver Length: 13.3 cm Gallbladder Wall: 0.1 cm CBD: 0.2 cm Spleen: 9.0 cm Right Kidney: 8.9 x 4.7 x 3.4 cm Left Kidney: 9.2 x 4.3 x 5.8 cm Pancreas: wnl Liver: Hypoechoic mass, cystic in appearance, note near inferior diaphragm =1.1 x 1.0 x 1.0cm. This appears to be a simple cyst. Gallbladder: hyperechoic wall mass, nonmobile, may be wall polyp, was seen in multiple views on wall = 0.4 x 0.2 x 0.1cm. Evidence for sonographic Bustos's sign: no CBD: wnl Spleen: wnl Right Kidney: wnl Left Kidney: wnl Upper IVC: wnl Abd Aorta: size is wnl; hyperechoic, intimal wall thickening noted in lower aorta. IMPRESSION: 1. Cyst at the dome of the diaphragm within the liver. 2. Gallbladder wall calcification, polyp, or nonmobile stone within the gallbladder. No acute cholecy stitis is evident.
== END | disposition home or self-care (01) ==
LOC: RADUSWWP 10:09
PROVIDERS: ATTEND Internal Medicine Hematology & Oncology
DX: K76.89 Other specified diseases of liver (principal)
CPT/HCPCS: 76700

== ENCOUNTER → 2018-07-30 | Outpatient (CLI) | payer OTHER ==
--- NOTE | 2018-08-06 07:28 | MM ---
Reason for exam: additional evaluation requested from prior study. Last mammogram was performed 6 months ago. History: Patient is postmenopausal, has history of breast cancer at age 57, and has history of other cancer at age 50. Malignant MG pre op needle loc LT of the left breast, August 05, 2017. Lumpectomy of the left breast, August 05, 2017. Malignant MG stereo VAD BX LT of the left breast, July 17, 2017. Benign left breast aspiration of the left breast, April 23, 2012. Benign cyst aspiration of the left breast, 1994. Took hormonal contraceptives for 2 years beginning at age 20. Taking antineoplastic for 5 months. Physical Findings: Nurse did not find any significant physical abnormalities on exam. MG 3D Diag Mammo W/Cad ALONSO Bilateral CC and MLO view(s) were taken. LM view(s) were taken of the left breast. Prior study comparison: January 23, 2018, left breast MG 3d diag mammo w/cad LT. July 09, 2017, left breast MG 3d work up w/cad LT. The breast tissue is heterogeneously dense. This may lower the sensitivity of mammography. There is a distortion in the left breast at known lumpectomy changes. No new dominant lesion. Right axillary medport catheter These results were verbally communicated with the patient and result sheet given to the patient on 07/30/18. ASSESSMENT: Benign, BI-RAD 2 RECOMMENDATION: Follow-up diagnostic mammogram of both breasts in 1 year.
== END | disposition home or self-care (01) ==
LOC: RADMAMWWP 12:51
PROVIDERS: ATTEND Surgery
DX: Z08 Encounter for follow-up examination after completed treatment for malignant neoplasm (principal); Z85.3 Personal history of malignant neoplasm of breast
CPT/HCPCS: 77062; 77066

== ENCOUNTER → 2018-08-18 | Outpatient (CLI) | payer OTHER ==
--- NOTE | 2018-08-18 10:46 | XR ---
EXAMINATION TYPE: XR thoracic spine complete DATE OF EXAM: 08/18/2018 COMPARISON: 02/04/2018 HISTORY: Pain Alignment is anatomic. There is no compression deformities. Vertebral body height and disc interspa luma are maintained. Central venous catheter stable. Curvature of the spine stable. There is a vague nodular density in the left upper lobe. IMPRESSION: 1. No acute abnormality. 2. Within the left upper lobe there is a vague nodular density measuring approximately 2 cm. Recommen d a standard PA and lateral chest x-ray to exclude pulmonary nodule.
== END | disposition home or self-care (01) ==
LOC: RADXRMAIN 10:04
PROVIDERS: ATTEND Internal Medicine Hematology & Oncology
DX: C50.512 Malignant neoplasm of lower-outer quadrant of left female breast (principal); E44.1 Mild protein-calorie malnutrition; B37.0 Candidal stomatitis; H93.11 Tinnitus, right ear
CPT/HCPCS: 72072

== ENCOUNTER → 2018-08-25 | Outpatient (CLI) | payer OTHER ==
--- NOTE | 2018-08-25 14:15 | XR ---
EXAMINATION TYPE: XR chest 2V DATE OF EXAM: 08/25/2018 COMPARISON: Prior chest x-ray 09/18/2017 and thoracic spine plain film 08/18/2017 HISTORY: Carcinoma breast TECHNIQUE: Frontal and lateral views of the chest are obtained. FINDINGS: Port-A-Cath present in the right pectoral region, distal tip of the catheter overlying the region of the confluence of the innominate veins, superior vena cava. Neno are present in the left breast. Cardiac mediastinal silhouette, pulmonary vascularity and donna are unchanged. Aorta is dense . There is a mild spinal curvature. No evident airspace disease, pneumothorax, or pleural effusion. There is no focal air space opacity, pleural effusion, or pneumothorax seen. The cardiac silhouette size is within normal limits. The osseous structures are intact. IMPRESSION: No acute cardiopulmonary process. The vague nodularity seen on prior thoracic spine film s is less well-defined, for increased sensitivity chest CT could be performed.
== END ==
LOC: RADXRMAIN 11:12
PROVIDERS: ATTEND Internal Medicine Hematology & Oncology
DX: C50.512 Malignant neoplasm of lower-outer quadrant of left female breast (principal); E44.1 Mild protein-calorie malnutrition; B37.0 Candidal stomatitis; H93.11 Tinnitus, right ear
CPT/HCPCS: 71046

== ENCOUNTER 2018-09-04 06:33 | Day surgery (SDC) | payer OTHER ==
[2018-09-02 10:52] VITALS: BMI 17.6
[~2018-09-04 06:33] MED LIST changes: +DEXAMETHASONE SOD PHOSPHATE 10 MG/ML 1 ML VIAL IV ONE; +HEPARIN SODIUM,PORCINE 5,000 UNIT/ML 1 ML VIAL SQ ONE; +HYDROmorphone 0.5 MG/0.5 ML SYRINGE IVP PRN; +MIDAZOLAM (PF) 2 MG/2 ML VIAL IV PRN; -MORPHINE SULFATE 4 MG/ML SYRINGE IV PRN; +ONDANSETRON 4 MG/2 ML VIAL IVP ONE; -Pre Op ABX Message 1 EACH MISC MISCELLANE ONE; +SCOPOLAMINE 1.5MG/72HR PATCH TRANSDERM ONE; +ceFAZolin IN SWFI 2 GM/20 ML SYRINGE IVP ONE; -fentaNYL (PF) 50 MCG/ML 2 ML AMP IV PRN
[2018-09-04] MEDS ORDERED: LIDOCAINE 1% 20 ML VIAL (10MG/ML) FOR IV START INTRADERMA ONE (07:10)
[2018-09-04] MEDS ORDERED: INDOCYANINE GREEN 25 MG VIAL IV STA (07:36)
--- NOTE | 2018-09-04 07:36 | P.GSHP ---
History of Present Illness H&P Date: 09/04/18 CHIEF COMPLAINT: Cholecystitis and breast cancer HISTORY OF PRESENT ILLNESS: The patient is a 58-year-old female who presents with history of epigastric including right upper quadrant abdominal pain. She underwent diagnostic studies for her gallbladder. Separately her clinical picture was consistent with cholecystitis. Now she presents for surgical intervention. She also has a mediport for chemotherapy that she seeks to have removal PAST MEDICAL HISTORY: Please see list PAST SURGICAL HISTORY: Please see list MEDICATIONS: Please see list ALLERGIES: Denies. SOCIAL HISTORY: No illicit drug use or recent tobacco use FAMILY HISTORY: Pertinent for gallbladder disease REVIEW OF ORGAN SYSTEMS: CONSTITUTIONAL: No reports of fevers or chills. HEENT: Denies any troubles with the vision or hearing. ENDOCRINE: No reports of hypothyroidism. No diabetes. RESPIRATORY: No recent pneumonias. CARDIOVASCULAR: Denies chest pain or palpitations GI: No blood in stools or constipation. MUSCULOSKELETAL: Has occasional joint pain including back pain. NEURO: No seizure disorders or headaches. No recent stroke. PSYCH: No depression or suicidal ideation. GENITOURINARY: No active blood in urine. No urinary hesitancy. HEMATOLOGIC: No personal or family history of DVTs or pulmonary emboli. SKIN: No skin cancer. PHYSICAL EXAM: VITAL SIGNS: Afebrile vital signs stable GENERAL: Well-developed pleasant in no acute distress. HEENT: No scleral icterus. Extraocular movements grossly intact. Moist buccal mucosa. NECK: Supple without lymphadenopathy. CHEST: Unlabored respirations. Equal bilateral excursions. CARDIOVASCULAR: Regular rate regular rhythm rhythm. Distal 2+ pulses. ABDOMEN: Soft, nondistended. Tender along the epigastrium and right upper quadrant. MUSCULOSKELETAL: No clubbing, cyanosis, or edema. NEURO: Cranial nerves II to XII within normal limits. No focal or lateralizing signs. PSYCH: Alert and oriented to person, place and time. SKIN: Well-perfused good skin turgor. ASSESSMENT: 1. Epigastric and right upper quadrant abdominal pain 2. Chronic cholecystitis 3. Symptomatic gallstones. 4. History of breast cancer 5. History of chemotherapy PLAN: 1. Will need a robotic cholecystectomy possible open. Benefits and risks were described. 2. Heparin for DVT prophylaxis 5000 units. 3. Antibiotic prophylaxis. 4 Will remove port a cath Past Medical History Past Medical History: Cancer Additional Past Medical History / Comment(s): SKIN CANCER MUTIPLE. BREAST CANCER 07/2017-last chemo ,last radiation History of Any Multi-Drug Resistant Organisms: None Reported Past Surgical History: Adenoidectomy, Tonsillectomy Additional Past Surgical History / Comment(s): left breast lumpectomy. BASAL CELL CANCER REMOVED FROM VARIOUS SPOTS,. port a cath insertion Past Anesthesia/Blood Transfusion Reactions: No Reported Reaction Additional Past Anesthesia/Blood Transfusion Reaction / Comment(s): no problems with prior blood transfusion Smoking Status: Never smoker - Past Family History Mother Family Medical History: Cancer Additional Family Medical History / Comment(s): leukemia Father Family Medical History: Dementia, Myocardial Infarction ([place]) Additional Family Medical History / Comment(s): PAST IN DECEMBER 2017 Medications and Allergies Home Medications Medication Instructions Recorded Confirmed Type Cholecalciferol (Vitamin D3) 5,000 unit PO QAM 07/10/17 09/02/18 History [Vitamin D3] Anastrozole [Arimidex] 1 mg PO DAILY 04/23/18 09/02/18 History Calcium Carbonate [Tums] 1,000 mg PO DAILY 04/23/18 09/02/18 History Risedronate Sodium [Actonel] 35 mg PO Q7DAYS 04/23/18 09/02/18 History Pertuzumab [Perjeta] 420 mg IV DIRECTED 09/02/18 09/02/18 History Trastuzumab [Herceptin] 0 mg IV DIRECTED 09/02/18 09/02/18 History Allergies Allergy/AdvReac Type Severity Reaction Status Date / Time No Known Allergies Allergy Verified 09/02/18 10:44 Surgical - Exam Vital Signs Temp Pulse Resp BP Pulse Ox 97.7 F 71 16 115/67 99 09/04/18 06:52 09/04/18 06:52 09/04/18 06:52 09/04/18 06:52 09/04/18 06:52
[2018-09-04] MEDS ORDERED: PROPOFOL 10 MG/ML 20 ML VIAL IV ONE (07:56)
[2018-09-04] MEDS ORDERED: NEOSTIGMINE 1 MG/ML 10 ML VIAL ONE (07:56)
[2018-09-04] MEDS ORDERED: LIDOCAINE 1% INJ 10MG/ML (20 ML MDV) ONE (07:56)
[2018-09-04] MEDS ORDERED: MIDAZOLAM 2 MG/2 ML VIAL ONE (07:56)
[2018-09-04] MEDS ORDERED: GLYCOPYRROLATE 0.2 MG/ML 2 ML VIAL ONE (07:56)
[2018-09-04] MEDS ORDERED: ePHEDrine SULFATE/0.9% NACL/PF 50 MG/5 ML SYRINGE IV ONE (07:56)
[2018-09-04] MEDS ORDERED: INDOCYANINE GREEN 25 MG VIAL IV ONE (07:56)
[2018-09-04] MEDS ORDERED: fentaNYL (PF) 50 MCG/ML 2 ML AMP ONE (07:56)
[2018-09-04] MEDS ORDERED: ROCURONIUM BROMIDE 10 MG/ML 10 ML VIAL IV ONE (07:56)
[2018-09-04] MEDS ORDERED: BUPIVACAIN-EPI 0.5%-1:200,000 30 ML VIAL SQ ONE (08:35)
--- NOTE | 2018-09-04 09:03 | P.OP ---
Date of Procedure: 09/04/18 Description of Procedure: SURGEON: DULCE KHAN MD PREOPERATIVE DIAGNOSES: 1. Right upper quadrant abdominal pain 2. Chronic cholecystitis 3. History of breast cancer. POSTOPERATIVE DIAGNOSES: 1. Right upper quadrant abdominal pain 2. Chronic cholecystitis 3. History of breast cancer. OPERATION: 1. Robotic-assisted da Martinez Xi laparoscopic cholecystectomy, multiport with FIREFLY 2. Removal of right internal jugular venous port-A-cath (see separate note) ESTIMATED BLOOD LOSS: 5 mL. SPECIMENS REMOVED: Gallbladder. COMPLICATIONS: None. OPERATIVE FINDINGS: 1. Chronic cholecystitis 2. Console time 13 minutes. INDICATIONS: The patient is a 58-year-old female who presents with cholelcystitis. Surgical intervention with a laparoscopic cholecystectomy was described at length including injury to the biliary tree, bleeding, infection, need for further surgery. Informed consent was obtained. Robotic assisted laparoscopic approach was described. Benefits and risks of the procedure including but not limited to bleeding, infection, injury to the biliary tree was described. Informed consent was obtained. DESCRIPTION OF PROCEDURE: Patient was brought to the operating room, placed in supine position. After general induction, the abdomen had been prepped and draped in standard sterile fashion. The robotic da Martinez XI system was primed. After a timeout protocol was performed, the patient had been prepped and draped in standard sterile fashion. The patient was injected with indocyanine green. A 5 mm 0 degrees laparoscopic trocar entry was performed along the left upper quadrant. The abdomen insufflated to 15 mmHg pressure which was tolerated well. Diagnostic laparoscopy demonstrated no injury to bowel viscera or mesentery. The liver surface was unremarkable. Next, two 8 mm robotic ports were placed along the right upper abdomen. The camera 8-mm port was maintained along the epigastrium. Another 8 mm port was placed along the left upper abdominal wall after exchanging the 5 mm port. Please note that the ports were placed at least 10 to 15 cm away from the target anatomy of the gallbladder. The robot was docked along the left lateral abdomen. The patient was repositioned in reverse Trendelenburg position. Using a grasper for arm 3, a grasper for arm 4, including hook cautery for arm 1 , the robotic system was docked and primed as described. Instruments were interchanged by the broker assistant including hook cautery, Bovie cautery and clip appliers. I had sat at the console. The gallbladder fundus was retracted over the dome of the liver. Initial attention was brought to the infundibulum which was gently retracted in the inferior lateral approach. Using a grasper, the cystic duct including the cystic artery was carefully skeletonized. FIREFLY was used to identify the cystic artery and cystic structures. Large PLASTIC clips were used throughout the entire case. Using a clip anaesthetic technician 2 clips were placed proximally, and 1 clip was placed distally along the cystic duct and then cauterized with the cautery. Again care was taken to avoid any injury to the biliary tree as the common bile duct was clearly visualized during this portion of dissection. Next, the cystic artery was similarly clipped and cauterized. Electro-Bovie cautery was used to remove the gallbladder from the hepatic fossa. Hemostasis was checked and found to be adequate. The robot was undocked. I re-scrubbed into the case. Using a 10 mm Endo Catch bag via the left upper quadrant incision, the specimen was removed from the abdominal cavity. All pneumoperitoneum instruments were evacuated from the abdominal cavity. The incisions were reapproximated using 4-0 Monocryl in an interrupted subcuticular fashion. Fascial defects were less than 8 mm in size. Please note along the trocar sites, local anesthetic was placed as a field block prior to insertion of all instruments. Liquid glue was applied to the skin. At the end of the procedure needle, sponge, and instrument count had been verified correct by the instructor adjunct surgical technician. The patient was transferred to postanesthesia care unit in stable condition. Intraoperative films were shared with the patient's family who were very pleased with the level of care.
--- NOTE | 2018-09-04 09:06 | P.PCN ---
Date of Procedure: 09/04/18 Description of Procedure: SURGEON: DULCE KHAN MD MATRIX SUPERVISOR: None. PREOPERATIVE DIAGNOSIS: 1. Breast cancer 2. Chemotherapeutic venous access. POSTOPERATIVE DIAGNOSIS: 1. Breast cancer 2. Chemotherapeutic venous access. OPERATION: Removal of right internal jugular vein Port-A-Cath. ANESTHESIA: GETA ESTIMATED BLOOD LOSS: 5 mL SPECIMENS REMOVED: Port-A-Cath COMPLICATIONS: None. INDICATIONS: The patient is a 58-year-old female who completed chemotherapy for breast cancer. She now has elected for removal. Benefits and risks were described. Informed consent was obtained. DESCRIPTION OF PROCEDURE: After completion of her cholecystectomy (please see separate operative report), attention was brought to the chest wall. Attention was brought to the area of the port site, whereby local was infiltrated into the skin for a field block. A #11 blade was used to incise along the previous cicatrix. Electro- Bovie cautery was used to control for hemostasis. Adhesions were lysed around the Mediport. The port was extracted without sequelae. Pressure for 2 minutes was placed along the internal jugular vein. Hemostasis was checked along the pocket of the Port-A-Cath site. The wound was closed in layers using 3-0 Vicryl for the deep subcutaneous tissues followed by 4-0 Monocryl in a running subcuticular fashion. Dermabond was applied to the skin. Once dried a 4 x 4 Optifoam was applied. At the end of the procedure needle, sponge and instrument counts were verified correct by the surgical processor. The patient had tolerated the procedure well and was taken to postanesthesia care in stable condition. FINDINGS: 1. Unremarkable Port-a-cath extraction. Plan - Discharge Summary Discharge Rx Participant: No New Discharge Prescriptions: No Action Cholecalciferol (Vitamin D3) [Vitamin D3] 5,000 unit PO QAM Risedronate Sodium [Actonel] 35 mg PO Q7DAYS Calcium Carbonate [Tums] 1,000 mg PO DAILY Anastrozole [Arimidex] 1 mg PO DAILY Pertuzumab [Perjeta] 420 mg IV DIRECTED Trastuzumab [Herceptin] 0 mg IV DIRECTED Discharge Medication List Cholecalciferol (Vitamin D3) [Vitamin D3] 5,000 unit PO QAM 07/10/17 [History] Anastrozole [Arimidex] 1 mg PO DAILY 04/23/18 [History] Calcium Carbonate [Tums] 1,000 mg PO DAILY 04/23/18 [History] Risedronate Sodium [Actonel] 35 mg PO Q7DAYS 04/23/18 [History] Pertuzumab [Perjeta] 420 mg IV DIRECTED 09/02/18 [History] Trastuzumab [Herceptin] 0 mg IV DIRECTED 09/02/18 [History]
[2018-09-04 09:12] VITALS: TEMP 97
[2018-09-04 09:18] VITALS: RESP 16
[2018-09-04 10:27] VITALS: BP 115/72; PULSE 57
== END 2018-09-04 11:11 | disposition home or self-care (01) ==
LOC: OR 06:33
PROVIDERS: ATTEND Surgery Plastic and Reconstructive Surgery
DX: K81.1 Chronic cholecystitis (principal); Z45.2 Encounter for adjustment and management of vascular access device; Z85.3 Personal history of malignant neoplasm of breast; Z92.21 Personal history of antineoplastic chemotherapy; Z85.828 Personal history of other malignant neoplasm of skin; Z80.6 Family history of leukemia; Z79.811 Long term (current) use of aromatase inhibitors; Z79.899 Other long term (current) drug therapy
CPT/HCPCS: 36590; 47563; S2900; 88304

== ENCOUNTER → 2019-01-06 | Outpatient (CLI) | payer OTHER ==
--- NOTE | 2019-01-06 10:49 | CT ---
EXAMINATION TYPE: CT abdomen pelvis w con DATE OF EXAM: 01/06/2019 COMPARISON: 06/08/2012 HISTORY: 58-year-old female Right sided umbilical/abdominal pain TECHNIQUE: Contiguous axial scanning of the abdomen and pelvis following administration of 100 ml Iso bibiana 300 IV contrast. Delayed images through the kidneys and coronal/sagittal reconstructions perform ed. CT DLP: 304.4 mGycm Automated exposure control for dose reduction was used. FINDINGS: Heart normal size without pericardial effusion. Minimal subpleural nodular atelectasis at the periphe ry of the lung bases. No pleural effusion. Stable posterior right hepatic lobe cyst measuring 1.3 cm. A subcentimeter hypodensity right liver lobe, axial image 17 is new and too small for accurate CT manoj racterization but likely represents an additional cyst. Portal venous system is patent. No biliary ductal dilatation. The third portion of the duodenum is slightly patulous measuring up to 3.1 cm, probably transient. Th ere is no abnormal distention of the stomach. However, given narrowing of the aortomesenteric distanc e of 6 mm, reference sagittal image 48, slitlike narrowing of the duodenum at this level, SMA syndrom e is difficult to exclude. Aortomesenteric angle is borderline at 19 degrees. Gallbladder is collapsed. Adrenal glands, kidneys, spleen, and pancreas appear within normal limits. No dilated small bowel, free fluid, or free air. No mesenteric or retroperitoneal lymphadenopathy trista ntified. Oral contrast has progressed to the splenic flexure. Mild to moderate stool within the sigmoid colon which is tortuous. While the appendix is not discretely identified, no secondary findings of acute appendicitis in the r ight lower quadrant. Bladder urine distended. Multiple pelvic phleboliths. Retroverted uterus and both ovaries are visuali zed. No abnormal fluid collection pelvis or pelvic lymphadenopathy seen. Bones: No osseous destructive process. IMPRESSION: 1. MILDLY DILATED PROXIMAL THIRD PORTION OF THE DUODENUM AT 3.1 CM. THIS MAY BE TRANSIENT. HOWEVER, G IVEN SLITLIKE NARROWING OF THE DUODENUM JUST DISTALLY AND A NARROWED AORTOMESENTERIC DISTANCE OF 6 MM , CORRELATE FOR THE POSSIBILITY OF SMA SYNDROME. 2. OTHERWISE, NO ACUTE INFLAMMATORY PROCESS IDENTIFIED IN THE ABDOMEN OR PELVIS TO EXPLAIN THE PATIEN T'S SYMPTOMS.
== END | disposition home or self-care (01) ==
LOC: RADCTMAIN 07:44
PROVIDERS: ATTEND Family Medicine
DX: K59.8 Other specified functional intestinal disorders (principal); R10.9 Unspecified abdominal pain
CPT/HCPCS: 74177; Q9967

== ENCOUNTER 2019-02-04 08:46 | Day surgery (SDC) | payer OTHER ==
[2019-02-03 08:34] VITALS: BMI 17.4
--- NOTE | 2019-02-03 22:40 | P.GSHP ---
History of Present Illness H&P Date: 02/04/19 CHIEF COMPLAINT: GERD HISTORY OF PRESENT ILLNESS: The patient is a 58-year-old female who presents reports gastroesophageal reflux disease. Upper endoscopy was offered for further evaluation and management. PAST MEDICAL HISTORY: Please see list. PAST SURGICAL HISTORY: Please see list. MEDICATIONS: Please see list. ALLERGIES: Please see list. SOCIAL HISTORY: No illicit drug use FAMILY HISTORY: No reports of Crohn disease or ulcerative colitis. REVIEW OF ORGAN SYSTEMS: CONSTITUTIONAL: No reports of fevers or chills. GI: Denies any blood in stools or constipation. PHYSICAL EXAM: VITAL SIGNS: Stable GENERAL: Well-developed and pleasant in no acute distress. HEENT: No scleral icterus. Extraocular movements grossly intact. Moist buccal mucosa. NECK: Supple without lymphadenopathy. CHEST: Unlabored respirations. Equal bilateral excursions. CARDIOVASCULAR: Regular rate and rhythm. Distal 2+ pulses. ABDOMEN: Soft, nondistended. MUSCULOSKELETAL: No clubbing, cyanosis, or edema. ASSESSMENT: 1. Gastroesophageal reflux disease PLAN: 1. Recommend proceeding with an upper endoscopy Past Medical History Past Medical History: Cancer Additional Past Medical History / Comment(s): SKIN CANCER MUTIPLE. LT BREAST CANCER 07/2017. do not use lt arm for blood draws or b/p History of Any Multi-Drug Resistant Organisms: None Reported Past Surgical History: Adenoidectomy, Breast Surgery, Cholecystectomy, Tonsillectomy Additional Past Surgical History / Comment(s): left breast lumpectomy with lymph nodes. BASAL CELL CANCER REMOVED FROM VARIOUS SPOTS, Past Anesthesia/Blood Transfusion Reactions: No Reported Reaction Smoking Status: Never smoker - Past Family History Mother Family Medical History: Cancer Additional Family Medical History / Comment(s): leukemia Father Family Medical History: Dementia, Myocardial Infarction ([place]) Additional Family Medical History / Comment(s): PAST IN DECEMBER 2017 Medications and Allergies Home Medications Medication Instructions Recorded Confirmed Type Cholecalciferol (Vitamin D3) 2,000 unit PO QAM 07/10/17 02/03/19 History [Vitamin D3] Anastrozole [Arimidex] 1 mg PO DAILY 04/23/18 02/03/19 History Calcium Carbonate [Tums] 1,000 mg PO DAILY 04/23/18 02/03/19 History Risedronate Sodium [Actonel] 35 mg PO Q7DAYS 04/23/18 02/03/19 History Allergies Allergy/AdvReac Type Severity Reaction Status Date / Time No Known Allergies Allergy Verified 02/03/19 08:25
[~2019-02-04 08:46] MED LIST changes: -DEXAMETHASONE SOD PHOSPHATE 10 MG/ML 1 ML VIAL IV ONE; -HEPARIN SODIUM,PORCINE 5,000 UNIT/ML 1 ML VIAL SQ ONE; -HYDROmorphone 0.5 MG/0.5 ML SYRINGE IVP PRN; +LIDOCAINE 1% 20 ML VIAL (10MG/ML) FOR IV START INTRADERMA PRN; -MIDAZOLAM (PF) 2 MG/2 ML VIAL IV PRN; -ONDANSETRON 4 MG/2 ML VIAL IVP ONE; -SCOPOLAMINE 1.5MG/72HR PATCH TRANSDERM ONE; -ceFAZolin IN SWFI 2 GM/20 ML SYRINGE IVP ONE
[2019-02-04 09:34] VITALS: TEMP 98
[2019-02-04] MEDS ORDERED: PROPOFOL 10 MG/ML 20 ML VIAL IV ONE (09:49)
[2019-02-04] MEDS ORDERED: GLYCOPYRROLATE 0.2 MG/ML 2 ML VIAL ONE (09:49)
[2019-02-04] MEDS ORDERED: LIDOCAINE 1% INJ 10MG/ML (20 ML MDV) ONE (09:49)
--- NOTE | 2019-02-04 10:08 | P.PCN ---
Date of Procedure: 02/04/19 Description of Procedure: PREOPERATIVE DIAGNOSIS: Gastroesophageal reflux disease. Epigastric abdominal pain POSTOPERATIVE DIAGNOSIS: Gastroesophageal reflux disease. Epigastric abdominal pain Moderate gastritis with bleeding OPERATION: Esophagogastroduodenoscopy with biopsies along antrum. SURGEON: Ammy Pina MD ANESTHESIA: MAC. INDICATIONS: The patient is a 58-year-old female who presents with a history of reflux disease and epigastric abdominal pain. Benefits and risks of the procedure were described. Informed consent was obtained. DESCRIPTION: The patient was brought into the endoscopy suite and laid in the left lateral decubitus position. An Olympus gastroscope was passed along the posterior oropharynx down to the distal esophagus where the squamocolumnar junction was encountered at 36 cm from the incisors. The stomach was entered and no bile reflux was found. Additional findings are listed below. Biopsies with cold forceps were obtained of the antrum. The first through third portion of the duodenum was examined and unremarkable. Retroflexion of the scope confirmed Hill grade 3 lower esophageal valve. The squamocolumnar junction demonstrated LA grade B erosive esophagitis. The stomach was desufflated. The patient tolerated the procedure well. FINDINGS: Squamocolumnar junction 36 cm from the incisors. Diaphragmatic hiatus at 37 cm. Hiatal hernia, 1 cm Hill grade 3 lower esophageal valve. LA grade B erosive esophagitis. No active duodenitis. Chronic gastritis with recent bleed RECOMMENDATIONS: Upper endoscopy as needed. Recommend treatment with antacids for 4 weeks Plan - Discharge Summary Discharge Rx Participant: Yes New Discharge Prescriptions: New Omeprazole 40 mg PO DAILY #30 capsule. No Action Cholecalciferol (Vitamin D3) [Vitamin D3] 2,000 unit PO QAM Risedronate Sodium [Actonel] 35 mg PO Q7DAYS Calcium Carbonate [Tums] 1,000 mg PO DAILY Anastrozole [Arimidex] 1 mg PO DAILY Discharge Medication List Cholecalciferol (Vitamin D3) [Vitamin D3] 2,000 unit PO QAM 07/10/17 [History] Anastrozole [Arimidex] 1 mg PO DAILY 04/23/18 [History] Calcium Carbonate [Tums] 1,000 mg PO DAILY 04/23/18 [History] Risedronate Sodium [Actonel] 35 mg PO Q7DAYS 04/23/18 [History] Omeprazole 40 mg PO DAILY #30 capsule. 02/04/19 [Rx] Follow up Appointment(s)/Referral(s): Ammy Pina MD [STAFF PHYSICIAN] - 03/02/19 Patient Instructions/Handouts: Gastritis (DC), Diet for Stomach Ulcers and Gastritis (ED) Discharge Disposition: HOME SELF-CARE
[2019-02-04 10:28] VITALS: BP 130/83; PULSE 85; RESP 18
== END 2019-02-04 10:49 | disposition home or self-care (01) ==
LOC: ORWHC2ENDO 08:46
PROVIDERS: ATTEND Surgery Plastic and Reconstructive Surgery
DX: K21.9 Gastro-esophageal reflux disease without esophagitis (principal); K29.51 Unspecified chronic gastritis with bleeding; K44.9 Diaphragmatic hernia without obstruction or gangrene; Z85.3 Personal history of malignant neoplasm of breast; Z85.828 Personal history of other malignant neoplasm of skin; Z79.811 Long term (current) use of aromatase inhibitors; Z79.899 Other long term (current) drug therapy
CPT/HCPCS: 88305; 43239; J2001; J2704

== ENCOUNTER → 2019-08-02 | Outpatient (CLI) | payer OTHER ==
--- NOTE | 2019-08-02 14:24 | MM ---
Reason for exam: additional evaluation requested from prior study. Last mammogram was performed 1 year ago. History: Patient is postmenopausal, has history of breast cancer at age 57, and has history of other cancer at age 50. Malignant MG pre op needle loc LT of the left breast, August 05, 2017. Lumpectomy of the left breast, August 05, 2017. Malignant MG stereo VAD BX LT of the left breast, July 17, 2017. Benign left breast aspiration of the left breast, April 23, 2012. Benign cyst aspiration of the left breast, 1994. Took hormonal contraceptives for 2 years beginning at age 20. Taking antineoplastic for 2 years beginning at age 57. Physical Findings: Nurse did not find any significant physical abnormalities on exam. MG 3D Diag Mammo W/Cad ALONSO Bilateral CC, MLO, and XCCL view(s) were taken. Spot compression CC view(s) were taken of the right breast. Prior study comparison: July 30, 2018, bilateral MG 3d diag mammo w/cad ALONSO. January 23, 2018, left breast MG 3d diag mammo w/cad LT. The breast tissue is heterogeneously dense. This may lower the sensitivity of mammography. Right lateral posterior depth asymmetry does not persist on XCCL and spot compression view. No suspicious abnormality. Post surgical/post therapy change on the left. These results were verbally communicated with the patient and result sheet given to the patient on 08/02/19. ASSESSMENT: Benign, BI-RAD 2 RECOMMENDATION: Follow-up diagnostic mammogram of both breasts in 1 year.
== END ==
LOC: RADMAMWWP 12:50
PROVIDERS: ATTEND Radiology Radiation Oncology
DX: C50.512 Malignant neoplasm of lower-outer quadrant of left female breast (principal); C77.9 Secondary and unspecified malignant neoplasm of lymph node, unspecified; Z17.0 Estrogen receptor positive status [ER+]; Z92.21 Personal history of antineoplastic chemotherapy
CPT/HCPCS: 77062; 77066

== ENCOUNTER → 2020-02-02 | Outpatient (CLI) | payer OTHER ==
--- NOTE | 2020-02-02 12:46 | BD ---
EXAMINATION TYPE: Axial Bone Density DATE OF EXAM: 02/02/2020 COMPARISON: 01.30.2018 CLINICAL HISTORY: 59 YR OLD FEMALE....ICD-10 CODE: M89.9 DISORDER OF BONE, C50.512 BREAST CANCER Height: 60.2 Weight: 100 FRAX RISK QUESTIONS: NOTHING TO NOTE HERE RISK FACTORS HISTORY OF: Active: SOMEWHAT Postmenopausal woman: YES AT AGE 50 Hyperparathyroidism: NO Adrenal Insufficiency: NO MEDICATIONS: Osteoporosis Medications: PROLIA, NOW, ACTENOL FOR ABOUT 1 YR, PROLIA FOR ABOUT 1 YR How Lon YRS TOTAL Additional Medications: HX OF CHEMO AND RADIATION, VIT D, REFLUX MEDS, TUMS, ANASTRAZOLE . Additional History: HX OF LT BREAST CANCER, LUMPECTOMY EXAM MEASUREMENTS: Bone mineral densitometry was performed using the [employer]™ System. Bone mineral density as measured about the Lumbar spine is: ----- L1-L4(G/cm2): 0.785 T Score Values are as follows: ----- L1: -2.7 ----- L2: -3.0 ----- L3: -3.0 ----- L4: -4.5 ----- L1-L4: -3.3 Bone mineral density has: Increased 0.8% since study of: 01.30.2018 Bone mineral density about the R hip (g/cm2): 0.794 Bone mineral density about the L hip (g/cm2): 0.899 T Score values are as follows: -----R Neck: -1.9 -----L Neck: -1.8 -----R Total: -1.7 -----L Total: -0.9 Bone mineral density has: Increased 1.1% since study of: 01.30.2018 FRAX%s: THERE IS A 7.9% CHANCE FOR A MAJOR OSTEOPOROTIC FX AND A 1.0% FOR HIP....PROBABILITY FOR F X IN 10 YRS TIME IMPRESSION: Osteoporosis NOTE: T-SCORE=SD OF THE YOUNG ADULT MEAN.
== END | disposition home or self-care (01) ==
LOC: RADBDWWP 09:14
PROVIDERS: ATTEND Internal Medicine Hematology & Oncology
DX: M81.0 Age-related osteoporosis without current pathological fracture (principal); C50.512 Malignant neoplasm of lower-outer quadrant of left female breast; M89.9 Disorder of bone, unspecified; Z79.890 Hormone replacement therapy; N95.1 Menopausal and female climacteric states
CPT/HCPCS: 77080

== ENCOUNTER → 2020-08-03 | Outpatient (CLI) | payer BC ==
--- NOTE | 2020-08-03 11:20 | MM ---
Reason for exam: additional evaluation requested from prior study. Last mammogram was performed 1 year ago. History: Patient is postmenopausal, has history of breast cancer at age 57, and has history of other cancer at age 50. Malignant MG pre op needle loc LT of the left breast, August 05, 2017. Lumpectomy of the left breast, August 05, 2017. Malignant MG stereo VAD BX LT of the left breast, July 17, 2017. Benign left breast aspiration of the left breast, April 23, 2012. Benign cyst aspiration of the left breast, 1994. Took hormonal contraceptives for 2 years beginning at age 20. Taking antineoplastic for 3 years beginning at age 57. Physical Findings: Nurse did not find any significant physical abnormalities on exam. MG 3D Diag Mammo W/Cad ALONSO Bilateral CC and MLO view(s) were taken. Prior study comparison: August 02, 2019, bilateral MG 3d diag mammo w/cad ALONSO. July 30, 2018, bilateral MG 3d diag mammo w/cad ALONSO. The breast tissue is heterogeneously dense. This may lower the sensitivity of mammography. Finding #1: Architectural distortion in the upper outer quadrant, posterior position of the left breast. Finding #2: There are typically benign round calcifications in both breasts. There is no discrete abnormality. These results were verbally communicated with the patient and result sheet given to the patient on 08/03/20. ASSESSMENT: Benign, BI-RAD 2 RECOMMENDATION: Follow-up diagnostic mammogram of both breasts in 1 year.
== END | disposition home or self-care (01) ==
LOC: RADMAMWWP 10:11
PROVIDERS: ATTEND Radiology Radiation Oncology
DX: C50.512 Malignant neoplasm of lower-outer quadrant of left female breast (principal); C77.9 Secondary and unspecified malignant neoplasm of lymph node, unspecified; Z79.811 Long term (current) use of aromatase inhibitors; Z92.21 Personal history of antineoplastic chemotherapy; Z17.0 Estrogen receptor positive status [ER+]; Z98.890 Other specified postprocedural states
CPT/HCPCS: 77062; 77066

== ENCOUNTER → 2020-09-13 | Outpatient (CLI) | payer BC | END | disposition home or self-care (01) | LOC: LABWHC1 08:42 | PROVIDERS: ATTEND Otolaryngology | DX: J30.89 Other allergic rhinitis (principal) | CPT/HCPCS: 36415 ==

== ENCOUNTER → 2021-05-18 | Outpatient (CLI) | payer BC ==
--- NOTE | 2021-05-18 11:34 | MM ---
Reason for exam: clinical finding. Last mammogram was performed 9 months ago. History: Patient is postmenopausal, has history of breast cancer at age 57, and has history of other cancer at age 50. Malignant MG pre op needle loc LT of the left breast, August 05, 2017. Lumpectomy of the left breast, August 05, 2017. Malignant MG stereo VAD BX LT of the left breast, July 17, 2017. Benign left breast aspiration of the left breast, April 23, 2012. Benign cyst aspiration of the left breast, 1994. Took hormonal contraceptives for 2 years beginning at age 20. Taking antineoplastic for 3 years beginning at age 57. Physical Findings: Nurse did not find any significant physical abnormalities on exam. MG 3D Diag Mammo W/Cad LT CC, MLO, XCCL, and ML view(s) were taken of the left breast. Prior study comparison: August 03, 2020, bilateral MG 3d diag mammo w/cad ALONSO. August 02, 2019, bilateral MG 3d diag mammo w/cad ALONSO. July 30, 2018, bilateral MG 3d diag mammo w/cad ALONSO. The breast tissue is heterogeneously dense. This may lower the sensitivity of mammography. Post surgical changes left breast. No significant new findings when compared with previous films. These results were verbally communicated with the patient and result sheet given to the patient on 05/18/21. ASSESSMENT: Benign, BI-RAD 2 RECOMMENDATION: Routine screening mammogram of both breasts in 3 months. Back on schedule for July 2021. Manage patient on a clinical basis.
== END | disposition home or self-care (01) ==
LOC: RADMAMWWP 08:16
PROVIDERS: ATTEND Family Medicine
DX: R92.2 Inconclusive mammogram (principal); Z85.3 Personal history of malignant neoplasm of breast; Z78.0 Asymptomatic menopausal state
CPT/HCPCS: 77061; 77065

== ENCOUNTER → 2021-05-25 | Outpatient (CLI) | payer BC ==
[2021-05-25 10:21] VITALS: BP 147/78; PULSE 77; RESP 16; TEMP 98.3
--- NOTE | 2021-05-25 10:35 | P.GSHP ---
History of Present Illness H&P Date: 05/25/21 Chief Complaint: left breast history invasive ductal cancer ; stage 2; T2N1M 0ER+TX+HEr2+G3 Zulema nunez is a 60-year-old white female who is status post lumpectomy for a T2 N1 M0 grade 3 invasive ductal carcinoma of the left breast. She completed a course of chemotherapy. She completed Taxotere/carboplatin. She received perjetta and Herceptin until July 2018. She completed radiation therapy. She was hormone receptor positive and HER-2/shirley positive. She is also on Arimidex. At this time she has no complaints related to her breasts. She has no masses or nodules in her breasts. The patient had some persistent swelling in the lateral aspect of her left breast and she has been ordered a compression bra from physical therapy, this resolved. She had a left breast diagnostic mammogram performed on [id number] this revealed postsurgical changes and was felt to be benign BIRADS 2. Recently mammogram was done as the patient felt some new nodularity in the lateral aspect of the left breast. This has not changed. Is not painful is inferior to where she had her surgery. Her last right breast mammogram was on this was a bilateral mammogram which was benign BIRADS 2. Family History: mother: leukemia patient: breast cancer Hormonal History: menarche: 13 : 2, breast fed: both, first at 25 menopause: 50 BCP: 6 months hormones: none Past surgical history: 1. Tonsilloadenoidectomy 2. Left breast lumpectomy Past medical history: Osteoporosis Social History: smoke: none alcohol; none drugs: none - Constitutional Comment: occasional hot flashes Constitutional: Denies chills, Denies fever - EENT Comment: night vision decreased Eyes: denies blurred vision, denies pain Ears, nose, mouth and throat: Denies headache, Denies sore throat - Breasts Breasts: bilateral: as per HPI - Cardiovascular Cardiovascular: Denies chest pain, Denies shortness of breath - Respiratory Respiratory: Denies cough - Gastrointestinal Gastrointestinal: Reports diarrhea, Denies abdominal pain, Denies nausea, Denies vomiting - Genitourinary (Female) Genitourinary: Denies dysuria, Denies hematuria - Menstruation Menstruation: Reports postmenopausal - Musculoskeletal Comment: arthritis knees and back - Integumentary Integumentary: Denies pruritus, Denies rash - Neurological Comment: 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 Neurological: Reports numbness, Denies weakness - Psychiatric Psychiatric: Denies anxiety, Denies depression - Endocrine Endocrine: Reports weight change, Denies fatigue, hypothyroid - Hematologic/Lymphatic Comment: none - Allergic/Immunologic Comment: - Constitutional Comment: eczema of eyelids Constitutional: Denies chills, Denies fever - EENT Eyes: denies blurred vision, denies pain Ears: deny: decreased hearing, tinnitus Ears, nose, mouth and throat: Denies headache, Denies sore throat - Breasts Breasts: bilateral: as per HPI - Cardiovascular Cardiovascular: Denies chest pain, Denies shortness of breath - Respiratory Respiratory: Denies cough, Denies 7 - Gastrointestinal Gastrointestinal: Denies abdominal pain, Denies diarrhea, Denies nausea, Denies vomiting - Genitourinary (Female) Genitourinary: Denies dysuria, Denies hematuria - Menstruation Menstruation: Reports postmenopausal - Musculoskeletal Comment: arthritis in knees; joint pain from arimidex - Integumentary Integumentary: Reports as per HPI - Neurological Neurological: Denies numbness, Denies weakness - Psychiatric Psychiatric: Denies anxiety, Denies depression - Endocrine Comment: hypothryoid - Hematologic/Lymphatic Comment: none - Allergic/Immunologic Allergic/Immunologic: Reports seasonal allergies Past Medical History Past Medical History: Cancer Additional Past Medical History / Comment(s): SKIN CANCER MUTIPLE. LT BREAST CANCER 07/2017. do not use lt arm for blood draws or b/p History of Any Multi-Drug Resistant Organisms: None Reported Past Surgical History: Adenoidectomy, Breast Surgery, Cholecystectomy, Tonsillectomy Additional Past Surgical History / Comment(s): left breast lumpectomy with lymph nodes. BASAL CELL CANCER REMOVED FROM VARIOUS SPOTS, Past Anesthesia/Blood Transfusion Reactions: No Reported Reaction Past Psychological History: No Psychological Hx Reported Additional Psychological History / Comment(s): lives in the family home with her . Adult son has moved back home to help. Currently not working. No experience. No extensive travel. No animal exposures. No tobacco use or alcohol use. No recreational drug use Past Alcohol Use History: Rare Past Drug Use History: None Reported - Past Family History Mother Family Medical History: Cancer Additional Family Medical History / Comment(s): leukemia Father Family Medical History: Dementia, Myocardial Infarction ([place]) Additional Family Medical History / Comment(s): PAST IN DECEMBER 2017 Medications and Allergies Home Medications Medication Instructions Recorded Confirmed Type Cholecalciferol (Vitamin D3) 2,000 unit PO QAM 07/10/17 05/25/21 History [Vitamin D3] Anastrozole [Arimidex] 1 mg PO DAILY 04/23/18 05/25/21 History Calcium Carbonate [Tums] 1,000 mg PO DAILY 04/23/18 05/25/21 History Denosumab [Prolia] 60 mg SQ QMONTHLY 05/25/21 05/25/21 History Levothyroxine Sodium [Levo-T] 50 mcg PO DAILY 05/25/21 05/25/21 History Allergies Allergy/AdvReac Type Severity Reaction Status Date / Time No Known Allergies Allergy Verified 05/25/21 10:11 Surgical - Exam BMI 20.3 - General no distress - Eyes normal ocular movement - ENT normal nares - Neck trachea midline - Respiratory normal respiratory effort - Cardiovascular Rhythm: regular Heart Sounds: normal: S1, S2 - Abdomen Abdomen: soft - Integumentary normal turgor - Neurologic no disoriented, no combative - Musculoskeletal normal gait, normal posture - Psychiatric oriented to time, oriented to person, oriented to place, speech is normal, memory intact Breast Exam: BRA: 36B Inspection: Postop changes left breast, grade 2 bilateral ptosis Palpation: Right breast: Multi-positional exam fibrocystic changes no dominant masses or nodules of concern Right axilla: No adenopathy of concern Left breast: Multi-positional exam fibrocystic changes no dominant masses or nodules of concern Left axilla: No adenopathy of concern Results Mammogram results reviewed left breast May 10 and bilateral mammogram from July 2020 Assessment and Plan Assessment: Impression: 1. Patient status post left breast lumpectomy/radiation therapy/chemotherapy/and presently on hormonal therapy for stage II invasive ductal carcinoma, no evidence of recurrence Patient felt nodularity left breast appears to be consistent with rib for postop/postradiation changes Fibrocystic breast changes Plan: Continue to follow with Dr Somers Patient for bilateral mammogram July 2021 with appointment at that time Cc: Dr. James
== END ==
LOC: WWCWWP 09:51
PROVIDERS: ATTEND Surgery
DX: C50.912 Malignant neoplasm of unspecified site of left female breast (principal); N63.20 Unspecified lump in the left breast, unspecified quadrant; N60.19 Diffuse cystic mastopathy of unspecified breast; Z87.39 Personal history of other diseases of the musculoskeletal system and connective tissue; Z79.811 Long term (current) use of aromatase inhibitors; Z80.3 Family history of malignant neoplasm of breast; Z92.3 Personal history of irradiation; Z98.890 Other specified postprocedural states

== ENCOUNTER 2021-06-27 09:05 | Day surgery (SDC) | payer BC ==
--- NOTE | 2021-06-27 08:24 | P.GSHP ---
History of Present Illness H&P Date: 06/27/21 CHIEF COMPLAINT: Colon screen HISTORY OF PRESENT ILLNESS: The patient is a 61-year-old female who presents for colon screen. Lower endoscopy was offered for further evaluation and management. PAST MEDICAL HISTORY: Please see list. PAST SURGICAL HISTORY: Please see list. MEDICATIONS: Please see list. ALLERGIES: Please see list. SOCIAL HISTORY: No illicit drug use FAMILY HISTORY: No reports of Crohn disease or ulcerative colitis. REVIEW OF ORGAN SYSTEMS: CONSTITUTIONAL: No reports of fevers or chills. PHYSICAL EXAM: VITAL SIGNS: Stable GENERAL: Well-developed pleasant in no acute distress. HEENT: No scleral icterus. Extraocular movements grossly intact. Moist buccal mucosa. NECK: Supple without lymphadenopathy. CHEST: Unlabored respirations. Equal bilateral excursions. CARDIOVASCULAR: Regular rate and rhythm. Distal 2+ pulses. ABDOMEN: Soft, nontender, nondistended. MUSCULOSKELETAL: No clubbing, cyanosis, or edema. ASSESSMENT: 1. Colon screen. PLAN: 1. Recommend proceeding with a lower endoscopy Past Medical History Past Medical History: Cancer Additional Past Medical History / Comment(s): SKIN CANCER MUTIPLE. LT BREAST CANCER 07/2017. do not use lt arm for blood draws or b/p History of Any Multi-Drug Resistant Organisms: None Reported Past Surgical History: Adenoidectomy, Breast Surgery, Cholecystectomy, Tonsillectomy Additional Past Surgical History / Comment(s): left breast lumpectomy with lymph nodes. BASAL CELL CANCER REMOVED FROM VARIOUS SPOTS, Past Anesthesia/Blood Transfusion Reactions: No Reported Reaction Past Psychological History: No Psychological Hx Reported Smoking Status: Never smoker Past Alcohol Use History: Rare Past Drug Use History: None Reported - Past Family History Mother Family Medical History: Cancer Additional Family Medical History / Comment(s): leukemia Father Family Medical History: Dementia, Myocardial Infarction ([place]) Additional Family Medical History / Comment(s): PAST IN DECEMBER 2017 Medications and Allergies Home Medications Medication Instructions Recorded Confirmed Type Cholecalciferol (Vitamin D3) 2,000 unit PO QAM 07/10/17 06/25/21 History [Vitamin D3] Anastrozole [Arimidex] 1 mg PO QAM 04/23/18 06/25/21 History Calcium Carbonate [Tums] 1,000 mg PO DAILY 04/23/18 06/25/21 History Denosumab [Prolia] 60 mg SQ Q180D 05/25/21 06/25/21 History Levothyroxine Sodium [Levo-T] 50 mcg PO QAM 05/25/21 06/25/21 History Ascorbic Acid [Vitamin C] 1 tab PO DAILY 06/25/21 06/25/21 History Elderberry Fruit and Flower [Black 1 cap PO DAILY 06/25/21 06/25/21 History Elderberry 575 mg Cap] Allergies Allergy/AdvReac Type Severity Reaction Status Date / Time No Known Allergies Allergy Verified 06/25/21 11:59
[~2021-06-27 09:05] MED LIST changes: +LIDOCAINE 1% (10MG/ML) FOR IV START INTRADERMA PRN; -LIDOCAINE 1% 20 ML VIAL (10MG/ML) FOR IV START INTRADERMA PRN
[2021-06-27 09:35] VITALS: TEMP 98.3
[2021-06-27] MEDS ORDERED: PROPOFOL 10 MG/ML 20 ML VIAL IV ONE (09:59)
--- NOTE | 2021-06-27 10:20 | P.PCN ---
Date of Procedure: 06/27/21 Description of Procedure: PREOPERATIVE DIAGNOSIS: Colonoscopy screening. POSTOPERATIVE DIAGNOSIS: Colonoscopy screening. OPERATION: Colonoscopy to the cecum, ileocecal valve and appendiceal orifice. SURGEON: Ammy Pina MD. ANESTHESIA: MAC. INDICATIONS: The patient is a 59-year-old female who presents for colonoscopy screening. Benefits and risks were described and informed consent was obtained. DESCRIPTION OF PROCEDURE: The patient had undergone Sutab prep. The patient had been brought into the operating room and laid in the left lateral decubitus position. After adequate intravenous sedation, the rectum was examined with 2% lidocaine jelly. No external hemorrhoids were encountered. The rectal tone was within normal limits. No lesions were palpated in the rectal vault. An Olympus colonoscope was advanced until the cecum, ileocecal valve and appendiceal orifice were clearly viewed. The prep was excellent. No scattered diverticulosis was encountered. No colonic polyps were found. No evidence of focal colitis was found. Retroflexion of the scope demonstrated grade 1 internal hemorrhoids without active bleeding or inflammation. The colon was desufflated. The patient had tolerated the procedure well. Withdrawal time was over 6 minutes. FINDINGS: Aronchick preparation quality scale (1-5) Internal hemorrhoids, grade 1 No external prolapsed hemorrhoids. No arteriovenous malformations. No adenomatous polyps. No focal colitis. RECOMMENDATIONS: Lower endoscopy in 10 years, 2030 Plan - Discharge Summary Discharge Rx Participant: No New Discharge Prescriptions: Continue Cholecalciferol (Vitamin D3) [Vitamin D3] 2,000 unit PO QAM Calcium Carbonate [Tums] 1,000 mg PO DAILY Anastrozole [Arimidex] 1 mg PO QAM Levothyroxine Sodium [Levo-T] 50 mcg PO QAM Denosumab [Prolia] 60 mg SQ Q180D Ascorbic Acid [Vitamin C] 1 tab PO DAILY Elderberry Fruit and Flower [Black Elderberry 575 mg Cap] 1 cap PO DAILY Discharge Medication List Cholecalciferol (Vitamin D3) [Vitamin D3] 2,000 unit PO QAM 07/10/17 [History] Anastrozole [Arimidex] 1 mg PO QAM 04/23/18 [History] Calcium Carbonate [Tums] 1,000 mg PO DAILY 04/23/18 [History] Denosumab [Prolia] 60 mg SQ Q180D 05/25/21 [History] Levothyroxine Sodium [Levo-T] 50 mcg PO QAM 05/25/21 [History] Ascorbic Acid [Vitamin C] 1 tab PO DAILY 06/25/21 [History] Elderberry Fruit and Flower [Black Elderberry 575 mg Cap] 1 cap PO DAILY 06/25/21 [History] Follow up Appointment(s)/Referral(s): Ammy Pina MD [STAFF PHYSICIAN] - As Needed Patient Instructions/Handouts: *[facility] - (Anesthesia) Endoscopy Discharge Instructions, Colonoscopy (DC) Activity/Diet/Wound Care/Special Instructions: Repeat colonoscopy 10 years2030 Discharge Disposition: HOME SELF-CARE
[2021-06-27 10:34] VITALS: BP 96/58; PULSE 76; RESP 16
== END 2021-06-27 10:58 | disposition home or self-care (01) ==
LOC: ORWHC2ENDO 09:05
PROVIDERS: ATTEND Surgery Plastic and Reconstructive Surgery
DX: Z12.11 Encounter for screening for malignant neoplasm of colon (principal); K64.8 Other hemorrhoids
CPT/HCPCS: 45378; J2704

== ENCOUNTER → 2021-08-10 | Outpatient (CLI) | payer BC ==
--- NOTE | 2021-08-10 11:22 | MM ---
Reason for exam: additional evaluation requested from prior study. Last mammogram was performed 3 months ago. History: Patient is postmenopausal, has history of breast cancer at age 57, and has history of other cancer at age 50. Malignant MG pre op needle loc LT of the left breast, August 05, 2017. Lumpectomy of the left breast, August 05, 2017. Malignant MG stereo VAD BX LT of the left breast, July 17, 2017. Benign left breast aspiration of the left breast, April 23, 2012. Benign cyst aspiration of the left breast, 1994. Took hormonal contraceptives for 2 years beginning at age 20. Taking antineoplastic for 3 years beginning at age 57. Physical Findings: Nurse did not find any significant physical abnormalities on exam. MG 3D Diag Mammo W/Cad ALONSO Bilateral CC and MLO view(s) were taken. Prior study comparison: May 18, 2021, left breast MG 3d diag mammo w/cad LT. August 03, 2020, bilateral MG 3d diag mammo w/cad ALONSO. The breast tissue is heterogeneously dense. This may lower the sensitivity of mammography. Finding: Architectural distortion in the left breast consistent with known excision and treatment changes. There is no discrete abnormality. These results were verbally communicated with the patient and result sheet given to the patient on 08/10/21. ASSESSMENT: Benign, BI-RAD 2 RECOMMENDATION: Routine screening mammogram of both breasts in 1 year.
== END | disposition home or self-care (01) ==
LOC: RADMAMWWP 10:03
PROVIDERS: ATTEND Radiology Radiation Oncology
DX: Z08 Encounter for follow-up examination after completed treatment for malignant neoplasm (principal); Z85.3 Personal history of malignant neoplasm of breast; Z85.858 Personal history of malignant neoplasm of other endocrine glands; Z79.811 Long term (current) use of aromatase inhibitors; Z92.21 Personal history of antineoplastic chemotherapy; Z98.890 Other specified postprocedural states
CPT/HCPCS: 77062; 77066

== ENCOUNTER → 2022-02-05 | Outpatient (CLI) | payer BC ==
--- NOTE | 2022-02-05 11:37 | BD ---
EXAMINATION TYPE: Axial Bone Density DATE OF EXAM: 02/05/2022 COMPARISON: 01.30.2018 CLINICAL HISTORY: 61 years year old Female. ICD-10 CODE: Z79.890 POST MENOPAUSAL WITH HRT Height: 60 Weight: 101 FRAX RISK QUESTIONS: NOTHING ADDITIONAL TO NOTE HERE RISK FACTORS HISTORY OF: Diet low in dairy products/other sources of calcium: YES Postmenopausal woman: 51 YRS OLD Hyperparathyroidism: NO Adrenal Insufficiency: NO MEDICATIONS: Thyroid Medications: YES, SYNTHROID FOR JUST UNDER A YR NOW Osteoporosis Medications: PROLIA FOR ABOUT 4 YRS Additional Medications: LT BREAST CANCER, LUMPECTOMY WITH NODE DISSECTION, HX OF CHEMO AND RADIATION, CALCIUM, VIT D, MULTIVITAMIN, Additional History: LT BREAST CANCER, HX OF CHEMO AND RADIATION, OSTEOPOROSIS, THYROID EXAM MEASUREMENTS: Bone mineral densitometry was performed using the [employer] System. Bone mineral density as measured about the Lumbar spine is: ----- L1-L4(G/cm2): 0.846 T Score Values are as follows: ----- L1: -2.3 ----- L2: -2.4 ----- L3: -2.5 ----- L4: -3.8 ----- L1-L4: -2.8 Bone mineral density has: Increased 9.6% since study of: 01.30.2018 Bone mineral density about the R hip (g/cm2): 0.808 Bone mineral density about the L hip (g/cm2): 0.907 T Score values are as follows: -----R Neck: -1.5 -----L Neck: -1.5 -----R Total: -1.6 -----L Total: -0.8 Bone mineral density has: Increased 2.3% since study of: 01.30.2018 FRAX%s: The graph provided illustrates a 7.4% chance for a major osteoporotic fx and a 0.8% chance fo r the hips probability for fx in 10 years time. IMPRESSION: Osteoporosis (T Score less than -2.5). There is increased fracture risk and therapy is usually indicated based on age. Re-Screen 1-2 years. NOTE: T-SCORE=SD OF THE YOUNG ADULT MEAN.
== END | disposition home or self-care (01) ==
LOC: RADBDWWP 10:30
PROVIDERS: ATTEND Internal Medicine Hematology & Oncology
DX: M85.89 Other specified disorders of bone density and structure, multiple sites (principal); Z79.890 Hormone replacement therapy; Z78.0 Asymptomatic menopausal state
CPT/HCPCS: 77080

== ENCOUNTER 2022-06-29 15:08 | Emergency (ER) | payer BC ==
[2022-06-29 15:26] VITALS: BP 143/78; PULSE 91; RESP 16; TEMP 97.9
[2022-06-29] MEDS ORDERED: ONDANSETRON 4 MG/2 ML VIAL IVP STA (15:47)
[2022-06-29] MEDS ORDERED: SODIUM CHLORIDE 0.9% 1,000 ML IV STA (15:47)
[2022-06-29] MEDS ORDERED: PANTOPRAZOLE 40 MG/10 ML VIAL IVP STA (15:47)
[2022-06-29] MEDS ORDERED: MAG HYDROX/AL HYDROX/SIMETH 30 ML, HYOSCYAMINE ELIXIR 10 ML, LIDOCAINE VISCOUS 2% 10 ML PO STA ×3 (15:47)
[2022-06-29 16:15] LABS: Basophils # (A) 0.1 k/uL (0-0.2); Basophils % (A) 2 %; Eosinophils # (A) 0.1 k/uL (0-0.7); Eosinophils % (A) 2 %; HCT 39.2 % (34.0-46.0); HGB 13.7 gm/dL (11.4-16.0); Lymphocytes # (A) 0.9 k/uL (1.0-4.8); Lymphocytes % (A) 24 %; MCH 31.6 pg (25.0-35.0); MCV 90.2 fL (80.0-100.0); Mean Platelet Volume 7.8; Monocytes # (A) 0.2 k/uL (0-1.0); Monocytes % (A) 6 %; Neutrophils # (A) 2.3 k/uL (1.3-7.7); Neutrophils % (A) 62 %; Platelet Count 195 k/uL (150-450); RBC 4.34 m/uL (3.80-5.40); RDW 12.3 % (11.5-15.5); WBC 3.6 k/uL (3.8-10.6)
[2022-06-29 16:17] LABS: Appearance,Urine Clear (Clear); Bilirubin,Urine Negative (Negative); Blood,Urine Negative (Negative); Color,Urine Yellow; Glucose,Urine (UA) Negative (Negative); Ketones,Urine 3+ (Negative); Leukocyte Esterase,Urine Negative (Negative); Nitrite,Urine Negative (Negative); Protein,Urine Negative (Negative); Specific Gravity,Urine 1.021 (1.001-1.035); Urobilinogen,Urine <2.0 mg/dL (<2.0)
[2022-06-29 16:26] LABS: Partial Thromboplastin Time 23.5 sec (22.0-30.0); Prothrombin Time 10.3 sec (9.0-12.0)
[2022-06-29 16:30] LABS: ALT 21 U/L (4-34); AST 30 U/L (14-36); African American GFR (CKD) >90 (>60 ml/min/1.73 sqM); Albumin 4.2 g/dL (3.5-5.0); Alkaline Phosphatase 45 U/L (38-126); Amylase 109 U/L (30-110); Anion Gap 7 mmol/L; Blood Urea Nitrogen 11 mg/dL (7-17); Calcium 9.4 mg/dL (8.4-10.2); Carbon Dioxide 29 mmol/L (22-30); Chloride 102 mmol/L (98-107); Glucose 92 mg/dL (74-99); Lipase 462 U/L (23-300); Non-African American GFR(CKD) >90 (>60 ml/min/1.73 sqM); Potassium 3.9 mmol/L (3.5-5.1); Sodium 138 mmol/L (137-145); Total Bilirubin 0.5 mg/dL (0.2-1.3); Total Protein 7.1 g/dL (6.3-8.2)
--- NOTE | 2022-06-29 16:40 | XR ---
EXAMINATION TYPE: XR chest 2V DATE OF EXAM: 06/29/2022 4:16 PM COMPARISON: Chest x-ray 08/25/2018 TECHNIQUE: XR chest 2V . CLINICAL INDICATION:Female, 62 years old with history of abdominal pain; FINDINGS: Lungs/Pleura: There is no evidence of pleural effusion, focal consolidation, or pneumothorax. Pulmonary vascularity: Unremarkable. Heart/mediastinum: Cardiomediastinal silhouette is unremarkable. Musculoskeletal: No acute osseous pathology. Other findings: Surgical clips project over the left lateral chest wall. IMPRESSION: No acute cardiopulmonary disease/process.
--- NOTE | 2022-06-29 17:39 | ED ---
General Adult HPI - General Chief complaint: Abdominal Pain Stated complaint: abd pain Time Seen by Provider: 06/29/22 15:37 Source: patient, RN notes reviewed, old records reviewed Mode of arrival: ambulatory Limitations: no limitations - History of Present Illness Initial comments: Patient is a 62-year-old female with past medical history remarkable for breast cancer, on anastrozole who presents emergency Department complaining of bilateral upper quadrant abdominal discomfort that is intermittent for the last 6 days. States it seems to be worse when she eats something. Results and she is not eating anything. Has been having nonbloody diarrhea as well intermittently. No nausea. No vomiting. No chest pain or shortness of breath. No history of abdominal surgeries. No other acute complaint at this time. Did see her PCP and obtain laboratory studies which were unremarkable. They were scheduling her to obtain a CT of the abdomen and pelvis next week, however she did not think she could wait that long. Presents for further evaluation at this time. No change in symptoms at this time. No cardiac history. - Related Data Home Medications Medication Instructions Recorded Confirmed Cholecalciferol (Vitamin D3) 2,000 unit PO QAM 07/10/17 06/27/21 [Vitamin D3] Anastrozole [Arimidex] 1 mg PO QAM 04/23/18 06/27/21 Calcium Carbonate [Tums] 1,000 mg PO DAILY 04/23/18 06/27/21 Denosumab [Prolia] 60 mg SQ Q180D 05/25/21 06/25/21 Levothyroxine Sodium [Levo-T] 50 mcg PO QAM 05/25/21 06/27/21 Ascorbic Acid [Vitamin C] 1 tab PO DAILY 06/25/21 06/27/21 Elderberry Fruit and Flower [Black 1 cap PO DAILY 06/25/21 06/27/21 Elderberry 575 mg Cap] Previous Rx's Medication Instructions Recorded Dicyclomine [Bentyl] 10 mg PO TID 7 Days #21 capsule 06/29/22 Famotidine [Pepcid] 20 mg PO DAILY 7 Days #7 tablet 06/29/22 Allergies Allergy/AdvReac Type Severity Reaction Status Date / Time lactose Allergy Swelling Verified 06/29/22 15:54 Review of Systems ROS Statement: Those systems with pertinent positive or pertinent negative responses have been documented in the HPI. Review of Systems: CONST: Denies fever EYES: Denies blurry vision ENT: Denies nasal congestion C/V: Denies Chest pain RESP: Denies shortness of breath GI: Endorses abdominal pain : Denies dysuria SKIN: Denies rash. MSK: Denies joint pain. NEURO: Denies headache ROS Other: All systems not noted in ROS Statement are negative. Past Medical History Past Medical History: Cancer Additional Past Medical History / Comment(s): SKIN CANCER MUTIPLE. LT BREAST CANCER 07/2017. do not use lt arm for blood draws or b/p History of Any Multi-Drug Resistant Organisms: None Reported Past Surgical History: Adenoidectomy, Breast Surgery, Cholecystectomy, Tonsillectomy Additional Past Surgical History / Comment(s): left breast lumpectomy with lymph nodes. BASAL CELL CANCER REMOVED FROM VARIOUS SPOTS, Past Anesthesia/Blood Transfusion Reactions: No Reported Reaction Past Psychological History: No Psychological Hx Reported Smoking Status: Never smoker Past Alcohol Use History: Rare Past Drug Use History: None Reported - Past Family History Mother Family Medical History: Cancer Additional Family Medical History / Comment(s): leukemia Father Family Medical History: Dementia, Myocardial Infarction ([place]) Additional Family Medical History / Comment(s): PAST IN DECEMBER 2017 General Exam - General Exam Comments Initial Comments: General: Appears in no acute distress. HEAD: Normal with no signs of head trauma. EYES: PERRLA, EOMI, conjunctiva normal, no discharge. ENT: Hearing grossly intact, normal oropharynx. RESPIRATORY: Clear breath sounds bilaterally. No wheezes, rales, or rhonchi. C/V: Regular rate and rhythm. S1 and S2 auscultated, no edema, peripheral pulses 2+ and intact throughout ABD: Abdomen is soft, nondistended. Mild tenderness to palpation in the shreya ateral upper quadrants. No guarding. No peritoneal signs. No rebound tenderness. No flank pain. EXT: Normal range of motion, no obvious deformity SKIN: No rashes or lesions observed on exposed skin. NEURO: Alert and oriented 4. Limitations: no limitations Course Vital Signs 06/29/22 15:24 Temperature 97.9 F Pulse Rate 91 Respiratory 16 Rate Blood Pressure 143/78 O2 Sat by Pulse 99 Oximetry Medical Decision Making - Medical Decision Making Based on the patient's presentation and physical exam, I'm concerned for possible intra-abdominal pathology for current symptoms. Cannot rule out ulcers, pancreatitis. Patient does have a history of cholecystectomy. Cannot rule out atypical ACS presentation either. We will therefore obtain abdominal laboratory studies as well as screening EKG, upright chest x-ray, troponin. She was in agreement this plan. She'll be given therapeutic medications including a GI cocktail, Zofran, Protonix, as well as a 1 L fluid bolus. She was in agreement with this plan. Vital signs within acceptable limits. EKG showed no signs of acute ischemia. Laboratory studies remarkable for mild leukopenia 3.6. Lipase is elevated but isolated, at 462. Troponin is undetectable. Urinalysis is remarkable for 3+ ketones but no other findings. No signs of blood or infection. No other abnormal labs at this time. The remainder of the hepatobiliary labs are within normal limits. Rest x-ray as interpreted by myself reveals no evidence of acute cardiopulmonary process. No intra-abdominal free air. I did discuss the findings with the patient. I did recommend we obtain a CT abdomen and pelvis to be the elevated lipase to rule out possible pancreatitis, however patient is asymptomatic at this time. She was in agreement this plan. CT abdomen and pelvis is interpreted by myself reveals no evidence of acute chest or intra-abdominal process. Radiology concurs with this evaluation, however they do see hepatic cysts, diverticular disease without diverticulitis, as well as chronic dilation of the third portion of the duodenum. On reevaluation, patient remains asymptomatic. Tolerated oral intake. I discussed her CT imaging with her. She expressed understanding. She will follow up with her PCP this week. She will cancel her CT that she is due to obtain this upcoming . She will return with any worsening symptoms. Strict return precautions were discussed. She was in agreement with discharge home. We discussed I do not have a clear etiology for her current symptoms. She has an isolated elevated lipase with no other findings suggestive of acute pancreatitis at this time. Therefore her diagnosis is abdominal pain of unknown etiology. I will provide the patient with a prescription for Bentyl, famotidine. I instructed the patient to follow up with their PCP in the next 1-3 days. I explained that the patient should return to the emergency department if they experience any worsening symptoms. Strict return precautions were discussed with the patient. The patient expressed understanding of these instructions. I answered all questions that the patient had. The patient was discharged home in good condition with their prescriptions and follow up information. - Lab Data Result diagrams: 06/29/22 16:02 06/29/22 16:02 Lab Results 06/29/22 06/29/22 06/29/22 Range/Units 16:02 16:02 16:02 WBC 3.6 L (3.8-10.6) k/uL RBC 4.34 (3.80-5.40) m/uL Hgb 13.7 (11.4-16.0) gm/dL Hct 39.2 (34.0-46.0) % MCV 90.2 (80.0-100.0) fL MCH 31.6 (25.0-35.0) pg MCHC 35.0 (31.0-37.0) g/dL RDW 12.3 (11.5-15.5) % Plt Count 195 (150-450) k/uL MPV 7.8 Neutrophils % 62 % Lymphocytes % 24 % Monocytes % 6 % Eosinophils % 2 % Basophils % 2 % Neutrophils # 2.3 (1.3-7.7) k/uL Lymphocytes # 0.9 L (1.0-4.8) k/uL Monocytes # 0.2 (0-1.0) k/uL Eosinophils # 0.1 (0-0.7) k/uL Basophils # 0.1 (0-0.2) k/uL PT 10.3 (9.0-12.0) sec INR 1.0 (<1.2) APTT 23.5 (22.0-30.0) sec Sodium 138 (137-145) mmol/L Potassium 3.9 (3.5-5.1) mmol/L Chloride 102 (98-107) mmol/L Carbon Dioxide 29 (22-30) mmol/L Anion Gap 7 mmol/L BUN 11 (7-17) mg/dL Creatinine 0.71 (0.52-1.04) mg/dL Est GFR (CKD-EPI)AfAm >90 (>60 ml/min/1.73 sqM) Est GFR (CKD-EPI)NonAf >90 (>60 ml/min/1.73 sqM) Glucose 92 (74-99) mg/dL Plasma Lactic Acid [place] (0.7-2.0) mmol/L Calcium 9.4 (8.4-10.2) mg/dL Total Bilirubin 0.5 (0.2-1.3) mg/dL AST 30 (14-36) U/L ALT 21 (4-34) U/L Alkaline Phosphatase 45 (38-126) U/L Troponin I (0.000-0.034) ng/mL Total Protein 7.1 (6.3-8.2) g/dL Albumin 4.2 (3.5-5.0) g/dL Amylase 109 (30-110) U/L Lipase 462 H (23-300) U/L Urine Color Urine Appearance (Clear) Urine pH (5.0-8.0) Ur Specific [place] (1.001-1.035) Urine Protein (Negative) Urine Glucose (UA) (Negative) Urine Ketones (Negative) Urine Blood (Negative) Urine Nitrite (Negative) Urine Bilirubin (Negative) Urine Urobilinogen (<2.0) mg/dL Ur Leukocyte Esterase (Negative) 06/29/22 06/29/22 06/29/22 Range/Units 16:02 16:02 16:02 WBC (3.8-10.6) k/uL RBC (3.80-5.40) m/uL Hgb (11.4-16.0) gm/dL Hct (34.0-46.0) % MCV (80.0-100.0) fL MCH (25.0-35.0) pg MCHC (31.0-37.0) g/dL RDW (11.5-15.5) % Plt Count (150-450) k/uL MPV Neutrophils % % Lymphocytes % % Monocytes % % Eosinophils % % Basophils % % Neutrophils # (1.3-7.7) k/uL Lymphocytes # (1.0-4.8) k/uL Monocytes # (0-1.0) k/uL Eosinophils # (0-0.7) k/uL Basophils # (0-0.2) k/uL PT (9.0-12.0) sec INR (<1.2) APTT (22.0-30.0) sec Sodium (137-145) mmol/L Potassium (3.5-5.1) mmol/L Chloride (98-107) mmol/L Carbon Dioxide (22-30) mmol/L Anion Gap mmol/L BUN (7-17) mg/dL Creatinine (0.52-1.04) mg/dL Est GFR (CKD-EPI)AfAm (>60 ml/min/1.73 sqM) Est GFR (CKD-EPI)NonAf (>60 ml/min/1.73 sqM) Glucose (74-99) mg/dL Plasma Lactic Acid [place] 0.9 (0.7-2.0) mmol/L Calcium (8.4-10.2) mg/dL Total Bilirubin (0.2-1.3) mg/dL AST (14-36) U/L ALT (4-34) U/L Alkaline Phosphatase (38-126) U/L Troponin I <0.012 (0.000-0.034) ng/mL Total Protein (6.3-8.2) g/dL Albumin (3.5-5.0) g/dL Amylase (30-110) U/L Lipase (23-300) U/L Urine Color Yellow Urine Appearance Clear (Clear) Urine pH 6.0 (5.0-8.0) Ur Specific [place] 1.021 (1.001-1.035) Urine Protein Negative (Negative) Urine Glucose (UA) Negative (Negative) Urine Ketones 3+ H (Negative) Urine Blood Negative (Negative) Urine Nitrite Negative (Negative) Urine Bilirubin Negative (Negative) Urine Urobilinogen <2.0 (<2.0) mg/dL Ur Leukocyte Esterase Negative (Negative) - EKG Data -: EKG Interpreted by Me EKG Comments: 12-lead Electrocardiogram Interpretation Note EKG was reviewed and interpreted by myself. 12-lead ECG performed at 1559 is interpreted by me as revealing normal sinus rhythm at a rate of 73 beats per minute. [place] is normal. RI interval is 120 ms, QRS duration is 89 ms, QTc is 401 ms.. There were no ST or T wave abnormalities to suggest myocardial ischemia or injury. R wave progression across the precordium was satisfactory. By my interpretation this EKG is non-diagnostic for acute ischemia. Disposition Clinical Impression: Abdominal pain of unknown etiology, Diarrhea Disposition: HOME SELF-CARE Condition: Good Instructions (If sedation given, give patient instructions): Abdominal Pain (ED) Prescriptions: Dicyclomine [Bentyl] 10 mg PO TID 7 Days #21 capsule Famotidine [Pepcid] 20 mg PO DAILY 7 Days #7 tablet Is patient prescribed a controlled substance at d/c from ED?: No Referrals: Devan James MD [Primary Care Provider] - 1-2 days Time of Disposition: 18:00
--- NOTE | 2022-06-29 17:55 | CT ---
EXAMINATION TYPE: CT abdomen pelvis w con CT DLP: 408.3 mGycm, Automated exposure control for dose reduction was used. DATE OF EXAM: 06/29/2022 5:36 PM COMPARISON: CT abdomen pelvis 01/06/2019 abdominal ultrasound 07/01/2018 CLINICAL INDICATION:Female, 62 years old with history of Abd pain, elevated lipase; b/l upper quadran t pain TECHNIQUE: Axial CT of the abdomen and pelvis. Sagittal and coronal reformats were created on a [email or web address] workstation. Contrast used:90 mL of Isovue 300 with IV Contrast, Oral contrast used: without Oral Contrast FINDINGS: LOWER CHEST: Unremarkable ABDOMEN LIVER: Fatty infiltration of the ligamentum teres. Posterior right hepatic lobe cyst measures 1.3 cm anterior right hepatic lobe 1.2 cm cyst, slightly increased in size from 2019. GALLBLADDER AND BILE DUCTS: Unremarkable. PANCREAS: Unremarkable. SPLEEN: Unremarkable. ADRENAL GLANDS: Unremarkable. KIDNEYS AND URETERS: No evidence of hydronephrosis or renal calculus. The ureters are unremarkable. PELVIS BLADDER: Unremarkable REPRODUCTIVE: Unremarkable. ABDOMEN & PELVIS STOMACH AND BOWEL: Stomach is unremarkable. Similar less appearance of the third portion of the duode num measuring up to 3.1 cm, unchanged from 2019. Scattered diverticula are noted throughout the colon . No evidence of bowel obstruction. Appendix is normal. PERITONEUM: No evidence of pneumoperitoneum or free fluid. VASCULATURE: Mild atherosclerotic calcifications are present throughout the abdominal aorta and its b ranches. No evidence of aortic aneurysm. MUSCULOSKELETAL: No acute osseous abnormalities LYMPH NODES: No gross evidence for lymphadenopathy. SOFT TISSUE/ABDOMINAL WALL: Unremarkable IMPRESSION: 1. No acute intra-abdominal or intrapelvic process. 2. Minimal dilatation of the third portion of the duodenum, which could be attributed to peristalsis and not significantly changed from 2019. No evidence for bowel obstruction. 3. Hepatic cysts and other incidental findings as detailed above.
== END 2022-06-29 18:42 | disposition home or self-care (01) ==
LOC: SUPCPDRO 15:08 → EC 15:08
DX: R10.11 Right upper quadrant pain (principal); R10.12 Left upper quadrant pain; R19.7 Diarrhea, unspecified; Z91.011 Allergy to milk products; Z90.49 Acquired absence of other specified parts of digestive tract
CPT/HCPCS: 99284; 96374; 96375; 96361 ×2; 36415; 80053; 82150; 83605; 83690; 84484; 85025; 85610; 85730; 81003; 71046; 74177; J2405; C9113; Q9967; 93005

== ENCOUNTER → 2022-08-12 | Outpatient (CLI) | payer BC ==
--- NOTE | 2022-08-12 13:43 | MM ---
Reason for Exam: Additional evaluation requested from prior study. Last screening mammogram was performed 12 month(s) ago. Patient History: Menarche at age 13. First Full-Term at age 26. Postmenopausal. Patient has history of breast feeding. Other cancer, age 50. Breast cancer, left, age 57. Hormonal Contraceptives for 2 years from age 20 until age 22. 1994, Benign Cyst Aspiration on the left side. 08/05/2017, Lumpectomy on the Left side. 08/05/2017, Malignant Core Biopsy on the left side. 07/17/2017, Malignant Core Biopsy on the left side. 04/23/2012, Benign Cyst Aspiration on the left side. Prior Study Comparison: 07/04/2017 Bilateral Screening Mammogram, [facility]. 07/09/2017 Left Diagnostic Mammogram, [facility]. 01/23/2018 Left Diagnostic Mammogram, [facility]. 07/30/2018 Bilateral Diagnostic Mammogram, [facility]. 08/02/2019 Bilateral Diagnostic Mammogram, [facility]. 08/03/2020 Bilateral Diagnostic Mammogram, [facility]. 05/18/2021 Left Diagnostic Mammogram, [facility]. 08/10/2021 Bilateral Diagnostic Mammogram, [facility]. Tissue Density: The breast tissue is heterogeneously dense. This may lower the sensitivity of mammography. Findings: Analyzed By CAD. Asymmetric diminished size to left breast with surgical clips and dystrophic calcification is redemonstrated. Occasional small benign-appearing round calcification in the right breast present. There are 2 grouped round calcifications in the right breast redemonstrated. No new mass or distortion in either breast. Overall Assessment: Benign, BI-RAD 2 Management: Diagnostic Mammogram of both breasts in 1 year. A clinical breast exam by your physician is recommended on an annual basis and results should be correlated with mammographic findings. This exam should not preclude additional follow-up of suspicious palpable abnormalities. Results were given to the patient verbally at the time of exam. Electronically signed and approved by: Walter Jimenez M.D.
== END | disposition home or self-care (01) ==
LOC: RADMAMWWP 12:49
PROVIDERS: ATTEND Radiology Radiation Oncology
DX: Z08 Encounter for follow-up examination after completed treatment for malignant neoplasm (principal); Z85.858 Personal history of malignant neoplasm of other endocrine glands; Z85.3 Personal history of malignant neoplasm of breast; Z79.811 Long term (current) use of aromatase inhibitors; Z92.21 Personal history of antineoplastic chemotherapy; Z98.890 Other specified postprocedural states; Z78.0 Asymptomatic menopausal state
CPT/HCPCS: 77062; 77066

== ENCOUNTER 2022-12-04 08:36 | Day surgery (SDC) | payer BC ==
[2022-12-04 08:54] VITALS: TEMP 97
[2022-12-04] MEDS ORDERED: LACTATED RINGERS 1,000 ML IV ONE (08:54)
--- NOTE | 2022-12-04 08:54 | P.GSHP ---
History of Present Illness H&P Date: 12/04/22 CHIEF COMPLAINT: GERD HISTORY OF PRESENT ILLNESS: The patient is a 62-year-old female who presents reports gastroesophageal reflux disease. Upper endoscopy was offered for further evaluation and management. PAST MEDICAL HISTORY: Please see list. PAST SURGICAL HISTORY: Please see list. MEDICATIONS: Please see list. ALLERGIES: Please see list. SOCIAL HISTORY: No illicit drug use FAMILY HISTORY: No reports of Crohn disease or ulcerative colitis. REVIEW OF ORGAN SYSTEMS: CONSTITUTIONAL: No reports of fevers or chills. GI: Denies any blood in stools or constipation. PHYSICAL EXAM: VITAL SIGNS: Stable GENERAL: Well-developed and pleasant in no acute distress. HEENT: No scleral icterus. Extraocular movements grossly intact. Moist buccal mucosa. NECK: Supple without lymphadenopathy. CHEST: Unlabored respirations. Equal bilateral excursions. CARDIOVASCULAR: Regular rate and rhythm. Distal 2+ pulses. ABDOMEN: Soft, nondistended. MUSCULOSKELETAL: No clubbing, cyanosis, or edema. ASSESSMENT: 1. Gastroesophageal reflux disease PLAN: 1. Recommend proceeding with an upper endoscopy Past Medical History Past Medical History: Cancer, Hyperlipidemia Additional Past Medical History / Comment(s): SKIN CANCER MUTIPLE. LT BREAST CANCER 07/2017. do not use lt arm for blood draws or b/p History of Any Multi-Drug Resistant Organisms: None Reported Past Surgical History: Adenoidectomy, Breast Surgery, Cholecystectomy, Tonsillectomy Additional Past Surgical History / Comment(s): left breast lumpectomy with lymph nodes. BASAL CELL CANCER REMOVED FROM VARIOUS SPOTS, Past Anesthesia/Blood Transfusion Reactions: No Reported Reaction Past Psychological History: No Psychological Hx Reported Smoking Status: Never smoker Past Alcohol Use History: Rare Past Drug Use History: None Reported - Past Family History Mother Family Medical History: Cancer Additional Family Medical History / Comment(s): leukemia Father Family Medical History: Dementia, Myocardial Infarction ([place]) Additional Family Medical History / Comment(s): PAST IN DECEMBER 2017 Medications and Allergies Home Medications Medication Instructions Recorded Confirmed Type Cholecalciferol (Vitamin D3) 2,000 unit PO QAM 07/10/17 12/02/22 History [Vitamin D3] Anastrozole [Arimidex] 1 mg PO QAM 04/23/18 12/02/22 History Calcium Carbonate [Tums] 1,000 mg PO DAILY 04/23/18 12/02/22 History Denosumab [Prolia] 60 mg SQ Q180D 05/25/21 12/02/22 History Levothyroxine Sodium [Synthroid] 25 mcg PO QAM 12/02/22 12/02/22 History Multivitamins, Thera [Multivitamin 1 tab PO DAILY 12/02/22 12/02/22 History (formulary)] Rosuvastatin [Crestor] 20 mg PO QAM 12/02/22 12/02/22 History Allergies Allergy/AdvReac Type Severity Reaction Status Date / Time lactose Allergy Swelling Verified 08/23/22 12:08 Surgical - Exam Vital Signs Temp Pulse Resp BP Pulse Ox 97 F L 56 L 18 158/70 97 12/04/22 08:53 12/04/22 08:53 12/04/22 08:53 12/04/22 08:53 12/04/22 08:53
[2022-12-04] MEDS ORDERED: PROPOFOL 10 MG/ML 20 ML VIAL IV ONE (09:17)
--- NOTE | 2022-12-04 09:36 | P.PCN ---
Date of Procedure: 12/04/22 Description of Procedure: PREOPERATIVE DIAGNOSIS: Gastroesophageal reflux disease. Atypical chest pain POSTOPERATIVE DIAGNOSIS: Gastroesophageal reflux disease. Morbid obesity. Gastritis. Diaphragmatic hiatal hernia OPERATION: Esophagogastroduodenoscopy with biopsies along antrum, duodenum, esophagus SURGEON: Ammy Pina MD ANESTHESIA: MAC. INDICATIONS: The patient is a 46-year-old female who presents with reflux disease. Benefits and risks of the procedure were described. Informed consent was obtained. DESCRIPTION: The patient was brought into the endoscopy suite and laid in the left lateral decubitus position. An Olympus gastroscope was passed along the posterior oropharynx down to the distal esophagus where the squamocolumnar junction was encountered at 40 cm from the incisors. The stomach was entered and no bile reflux was found. Additional findings are listed below. Biopsies with cold forceps were obtained of the antrum. The first through third portion of the duodenum was examined. Retroflexion of the scope confirmed Hill grade 2 lower esophageal valve. The squamocolumnar junction demonstrated LA grade A erosive esophagitis. The stomach was desufflated. The patient tolerated the procedure well. FINDINGS: Squamocolumnar junction 35 cm from the incisors. Diaphragmatic hiatus at 36 cm. Hiatal hernia, 1 cm, sliding Hill grade 2 lower esophageal valve. LA grade A erosive esophagitis. Biopsies obtained of duodenum for duodenitis Chronic gastritis with biopsies obtained Biopsies obtained of esophagus RECOMMENDATIONS: Upper endoscopy as needed. Plan - Discharge Summary Discharge Rx Participant: No New Discharge Prescriptions: Continue Cholecalciferol (Vitamin D3) [Vitamin D3] 2,000 unit PO QAM Calcium Carbonate [Tums] 1,000 mg PO DAILY Anastrozole [Arimidex] 1 mg PO QAM Levothyroxine Sodium [Synthroid] 25 mcg PO QAM Denosumab [Prolia] 60 mg SQ Q180D Rosuvastatin [Crestor] 20 mg PO QAM Multivitamins, Thera [Multivitamin (formulary)] 1 tab PO DAILY Discharge Medication List Cholecalciferol (Vitamin D3) [Vitamin D3] 2,000 unit PO QAM 07/10/17 [History] Anastrozole [Arimidex] 1 mg PO QAM 04/23/18 [History] Calcium Carbonate [Tums] 1,000 mg PO DAILY 04/23/18 [History] Denosumab [Prolia] 60 mg SQ Q180D 05/25/21 [History] Levothyroxine Sodium [Synthroid] 25 mcg PO QAM 12/02/22 [History] Multivitamins, Thera [Multivitamin (formulary)] 1 tab PO DAILY 12/02/22 [History] Rosuvastatin [Crestor] 20 mg PO QAM 12/02/22 [History] Follow up Appointment(s)/Referral(s): Ammy Pina MD [STAFF PHYSICIAN] - 12/17/22 2:15 pm Patient Instructions/Handouts: Gastritis (DC) Discharge Disposition: HOME SELF-CARE
[2022-12-04 09:45] VITALS: RESP 16
[2022-12-04 09:53] VITALS: BP 109/66; PULSE 63
== END 2022-12-04 10:00 | disposition home or self-care (01) ==
LOC: ORWHC2ENDO 08:36
PROVIDERS: ATTEND Surgery Plastic and Reconstructive Surgery
DX: K29.50 Unspecified chronic gastritis without bleeding (principal); K44.9 Diaphragmatic hernia without obstruction or gangrene; E66.01 Morbid (severe) obesity due to excess calories; K21.00 Gastro-esophageal reflux disease with esophagitis, without bleeding; E78.5 Hyperlipidemia, unspecified; F10.90 Alcohol use, unspecified, uncomplicated; Z90.89 Acquired absence of other organs; Z90.49 Acquired absence of other specified parts of digestive tract; Z98.890 Other specified postprocedural states; Z85.828 Personal history of other malignant neoplasm of skin; Z82.49 Family history of ischemic heart disease and other diseases of the circulatory system; Z79.899 Other long term (current) drug therapy; Z88.8 Allergy status to other drugs, medicaments and biological substances; Z79.890 Hormone replacement therapy; Z68.41 Body mass index [BMI] 40.0-44.9, adult
CPT/HCPCS: 88305; 43239; J2704

== ENCOUNTER → 2023-01-24 | Outpatient (CLI) | payer BC ==
--- NOTE | 2023-01-24 13:04 | XR ---
EXAMINATION TYPE: XR hand complete bilateral DATE OF EXAM: 01/24/2023 COMPARISON: NONE HISTORY: Pain TECHNIQUE: Three views are submitted. FINDINGS: The osseous structures are intact. The joint spaces are preserved and there is no acute fracture or dislocation. Tiny punctate calcific densities adjacent to the DIP joint of the right first digit. ronic IMPRESSION: 1. No definite acute fracture or dislocation if symptoms persist, follow-up study in 7 to 10 days wo uld be suggested
== END | disposition home or self-care (01) ==
LOC: RADXRMAIN 12:16
PROVIDERS: ATTEND Family Medicine
DX: M19.041 Primary osteoarthritis, right hand (principal); M19.042 Primary osteoarthritis, left hand

== ENCOUNTER → 2023-08-14 | Outpatient (CLI) | payer BC ==
--- NOTE | 2023-08-14 13:18 | MM ---
Reason for Exam: Follow-up at short interval from prior study. Last screening mammogram was performed 12 month(s) ago. Patient History: Menarche at age 13. First Full-Term at age 26. Postmenopausal. Patient has history of breast feeding. Breast cancer, left, age 57. Hormonal Contraceptives for 2 years from age 20 until age 22. 1994, Benign Cyst Aspiration on the left side. 08/05/2017, Lumpectomy on the Left side. 08/05/2017, Malignant Core Biopsy on the left side. 07/17/2017, Malignant Core Biopsy on the left side. 04/23/2012, Benign Cyst Aspiration on the left side. Prior Study Comparison: 07/30/2018 Bilateral Diagnostic Mammogram, [facility]. 08/03/2020 Bilateral Diagnostic Mammogram, [facility]. 05/18/2021 Left Diagnostic Mammogram, [facility]. 08/10/2021 Bilateral Diagnostic Mammogram, [facility]. 08/12/2022 Bilateral MG 3D diag mammo w/cad ALONSO, [facility]. Tissue Density: The breast tissue is heterogeneously dense. This may lower the sensitivity of mammography. Findings: Analyzed By CAD. Both surgical posttreatment changes left breast. Biozorb device at the excisional site is redemonstrated prominent fat necrosis calcifications. Areas of asymmetric density on the left remain unchanged. No significant change from prior exams. Overall Assessment: Negative, BI-RAD 1 Management: Screening Mammogram of both breasts in 1 year. . Results were given to the patient verbally at the time of exam. Patient should continue monthly self-breast exams. A clinical breast exam by your physician is recommended on an annual basis. This exam should not preclude additional follow-up of suspicious palpable abnormalities. Electronically signed and approved by: Jonna Rutherford M.D. Radiologist
--- NOTE | 2023-08-14 14:15 | P.PN ---
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 She completed a course of chemotherapy. She completed Taxotere/carboplatin. She received perjetta and Herceptin until July 2018. She completed radiation therapy. She was hormone receptor positive and HER-2/shirley positive. She is also on Arimidex. At this time she has no complaints related to her breasts. She has no masses or nodules in her breasts. The patient had some persistent swelling in the lateral aspect of her left breast and she has been ordered a compression bra from physical therapy, this resolved. Of any new lumps masses or nodules of concern in either breast. Bilateral mammogram 08-14-23 BIRAD 1, personally reviewed. Family History: mother: leukemia patient: breast cancer Hormonal History: menarche: 13 : 2, breast fed: both, first at 25 menopause: 50 BCP: 6 months hormones: none Past surgical history: 1. Tonsilloadenoidectomy 2. Left breast lumpectomy Past medical history: Osteoporosis Social History: smoke: none alcohol; none drugs: none - Constitutional Comment: occasional hot flashes Constitutional: Denies chills, Denies fever - EENT Comment: night vision decreased Eyes: denies blurred vision, denies pain Ears, nose, mouth and throat: Denies headache, Denies sore throat - Breasts Breasts: bilateral: as per HPI - Cardiovascular Cardiovascular: Denies chest pain, Denies shortness of breath - Respiratory Respiratory: Denies cough - Gastrointestinal Gastrointestinal: Reports diarrhea, Denies abdominal pain, Denies nausea, Denies vomiting - Genitourinary (Female) Genitourinary: Denies dysuria, Denies hematuria - Menstruation Menstruation: Reports postmenopausal - Musculoskeletal Comment: arthritis knees and back - Integumentary Integumentary: Denies pruritus, Denies rash - Neurological Comment: 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 Neurological: Reports numbness, Denies weakness - Psychiatric Psychiatric: Denies anxiety, Denies depression - Endocrine Endocrine: Reports weight change, Denies fatigue, hypothyroid - Hematologic/Lymphatic Comment: none - Allergic/Immunologic Comment: - Constitutional Comment: eczema of eyelids Constitutional: Denies chills, Denies fever - EENT Eyes: denies blurred vision, denies pain Ears: deny: decreased hearing, tinnitus Ears, nose, mouth and throat: Denies headache, Denies sore throat - Breasts Breasts: bilateral: as per HPI - Cardiovascular Cardiovascular: Denies chest pain, Denies shortness of breath - Respiratory Respiratory: Denies cough - Gastrointestinal Gastrointestinal: Denies abdominal pain, Denies diarrhea, Denies nausea, Denies vomiting - Genitourinary (Female) Genitourinary: Denies dysuria, Denies hematuria - Menstruation Menstruation: Reports postmenopausal - Musculoskeletal Comment: arthritis in knees; joint pain from arimidex - Integumentary Integumentary: Reports as per HPI - Neurological Neurological: Denies numbness, Denies weakness - Psychiatric Psychiatric: Denies anxiety, Denies depression - Endocrine Comment: hypothryoid - Hematologic/Lymphatic Comment: none - Allergic/Immunologic Allergic/Immunologic: Reports seasonal allergies Past Medical History Past Medical History: Cancer Additional Past Medical History / Comment(s): SKIN CANCER MUTIPLE. LT BREAST CANCER 07/2017. do not use lt arm for blood draws or b/p History of Any Multi-Drug Resistant Organisms: None Reported Past Surgical History: Adenoidectomy, Breast Surgery, Cholecystectomy, Tonsillectomy Additional Past Surgical History / Comment(s): left breast lumpectomy with lymph nodes. BASAL CELL CANCER REMOVED FROM VARIOUS SPOTS, Past Anesthesia/Blood Transfusion Reactions: No Reported Reaction Past Psychological History: No Psychological Hx Reported Additional Psychological History / Comment(s): lives in the family home with her . Adult son has moved back home to help. Currently not working. No experience. No extensive travel. No animal exposures. No tobacco use or alcohol use. No recreational drug use Past Alcohol Use History: Rare Past Drug Use History: None Reported - Past Family History Mother Family Medical History: Cancer Additional Family Medical History / Comment(s): leukemia Father Family Medical History: Dementia, Myocardial Infarction ([place]) Additional Family Medical History / Comment(s): PAST IN DECEMBER 2017 Objective - Constitutional General appearance: Present: cooperative - EENT Eyes: Present: EOMI ENT: Present: hearing grossly normal - Neck Neck: Present: normal ROM - Respiratory Respiratory: bilateral: CTA - Cardiovascular Rhythm: regular Heart sounds: normal: S1, S2 - Integumentary Integumentary: Present: normal turgor - Musculoskeletal Musculoskeletal: Present: gait normal - Psychiatric Psychiatric: Present: A&O x's 3, appropriate affect, intact judgment & insight - Additional findings Additional findings: Breast Exam: BRA: 36B Inspection: Postop changes left breast, grade 2 bilateral ptosis Palpation: Right breast: Multi-positional exam fibrocystic changes no dominant masses or nodules of concern Right axilla: No adenopathy of concern Left breast: Multi-positional exam fibrocystic changes no dominant masses or nodules of concern; post operative and postradiation changes Left axilla: No adenopathy of concern Assessment and Plan Assessment: Impression: 1. Patient status post left breast lumpectomy/radiation therapy/chemotherapy/and presently on hormonal therapy (Arimidex) for stage II invasive ductal carcinoma, no evidence of recurrence Fibrocystic breast changes bilateral mammogram on 08-14-23 BIRAD 1 Plan: Continue to follow with Dr Somers Patient for bilateral mammogram July 2024 with appointment at that time CC: Dr. Devan James
== END | disposition home or self-care (01) ==
LOC: RADMAMWWP 12:53
PROVIDERS: ATTEND Surgery
DX: Z12.31 Encounter for screening mammogram for malignant neoplasm of breast (principal); C50.912 Malignant neoplasm of unspecified site of left female breast; H93.11 Tinnitus, right ear; R19.7 Diarrhea, unspecified; E44.1 Mild protein-calorie malnutrition; M81.0 Age-related osteoporosis without current pathological fracture; N60.19 Diffuse cystic mastopathy of unspecified breast; Z78.0 Asymptomatic menopausal state; Z80.3 Family history of malignant neoplasm of breast; Z85.828 Personal history of other malignant neoplasm of skin; Z90.49 Acquired absence of other specified parts of digestive tract; Z79.811 Long term (current) use of aromatase inhibitors
CPT/HCPCS: 77062; 77066

== ENCOUNTER → 2023-08-14 | Outpatient (CLI) | payer BC | LOC: WWCWWP 12:55 | PROVIDERS: ATTEND Surgery | DX: Z85.3 Personal history of malignant neoplasm of breast (principal) ==

== ENCOUNTER → 2023-11-03 | Outpatient (CLI) | payer BC ==
--- NOTE | 2023-11-04 21:42 | MR ---
EXAMINATION TYPE: MR brain wo con DATE OF EXAM: 11/03/2023 COMPARISON: None HISTORY: Memory loss, hx of breast ca CONTRAST: Performed utilizing 0 mL intravenous Gadavist gadolinium contrast. TECHNIQUE: Multiplanar, multiecho imaging on a 3.0 Rosenda magnet is performed through the brain. Stud y is performed within 24 hours of arrival to the hospital. The craniovertebral junction is normal. The pituitary is normal. Diffusion-weighted imaging is performed. No abnormal hyperintensity is present to suggest an acute i ntracranial infarct or acute ischemic change. There is a punctate subcortical white matter changes left frontal lobe. This is not out of proportion for the patient's age. Consider microvascular ischemic change and migraine headaches. Ventricles and sulci are appropriate for the patient age. Internal auditory canals and cerebellar vaibhav yesenia angles appear normal. Study is without intravenous contrast. This may cause some limitation for metastatic evaluation. IMPRESSION: 1. There is a punctate hyperintensity in the subcortical white matter left frontal lobe which is nons pecific and within normal expectation for the patient's age. Finding is nonspecific and could be rela daina to migraine headaches.
== END | disposition home or self-care (01) ==
LOC: RADMRIMAIN 11:15
PROVIDERS: ATTEND Psychiatry & Neurology Neurology
DX: G93.89 Other specified disorders of brain (principal); I63.9 Cerebral infarction, unspecified; Z85.3 Personal history of malignant neoplasm of breast
CPT/HCPCS: 70551

== ENCOUNTER → 2024-02-09 | Outpatient (CLI) | payer BC ==
--- NOTE | 2024-02-09 15:18 | BD ---
EXAMINATION TYPE: Axial Bone Density DATE OF EXAM: 02/09/2024 CLINICAL HISTORY: 63 years old Female. ICD-10 CODE: C50.512 breast ca Height: 60" Weight: 103lbs FRAX RISK QUESTIONS: Alcohol (3 or more units per day): No Family History (Parent hip fracture): No Glucocorticoids (More than 3mos): No (Ex: prednisone, prednisolone, methylprednisolone, dexamethasone, and hydrocortisone). History of Fracture in Adulthood: No Secondary Osteoporosis: 1. Type 1 Diabetes: No 2. Hyperthyroidism: No 3. Menopause before 45: No 4. Malnutrition: No 5. Chronic liver disease: No Rheumatoid Arthritis: No Current Tobacco Use: No RISK FACTORS HISTORY OF: Hip Fracture (Right/Left): No Spine Fracture: No History of Wrist Fracture: No Surgery to Spine/Hip(right/left)/Wrist (right/left): No MEDICATIONS: Thyroid Medications: Yes Which medication: Levothyroxine How Long: About 4 years Osteoporosis Medications: Yes Which medication: Prolia How Long: A few years EXAM MEASUREMENTS: Bone mineral densitometry was performed using the [employer] [facility]. Bone mineral density as measured about the Lumbar spine is: ----- L1-L4(G/cm2): 0.836 T Score Values are as follows: ----- L1: -2.5 ----- L2: -2.5 ----- L3: -2.6 ----- L4: -3.8 ----- L1-L4: -2.9 Z Score Values are as follows: ----- L1: -0.4 ----- L2: -0.4 ----- L3: -0.5 ----- L4: -1.8 ----- L1-L4: -0.8 Bone mineral density has: decreased -1.2% since study of: 02/05/2022 Bone mineral density about the R hip (g/cm2): 0.816 Bone mineral density about the L hip (g/cm2): 0.873 T Score values are as follows: -----R Neck: -1.1 -----L Neck: -1.8 -----R Total: -1.5 -----L Total: -1.1 Z Score values are as follows: -----R Neck: 0.7 -----L Neck: 0.0 -----R Total: 0.0 -----L Total: 0.5 Bone mineral density has: decreased -1.5% since study of: 02/05/2022 FRAX%s: The graph provided illustrates a 8.7% chance for a major osteoporotic fx and a 1.2% chance fo r the hips probability for fx in 10 years time. IMPRESSION: Osteopenia (T Score between -2.5 and -1). There is slightly increased risk of fracture and the patient may be considered for treatment. Re-Screen 2-5 years. NOTE: T-SCORE=SD OF THE YOUNG ADULT MEAN.
== END | disposition home or self-care (01) ==
LOC: RADBDWWP 11:01
PROVIDERS: ATTEND Internal Medicine Hematology & Oncology
DX: C50.512 Malignant neoplasm of lower-outer quadrant of left female breast (principal); M81.0 Age-related osteoporosis without current pathological fracture; M85.89 Other specified disorders of bone density and structure, multiple sites; E44.1 Mild protein-calorie malnutrition; R19.7 Diarrhea, unspecified; H93.11 Tinnitus, right ear
CPT/HCPCS: 77080

== ENCOUNTER → 2024-08-16 | Outpatient (CLI) | payer BC ==
--- NOTE | 2024-08-16 09:48 | MM ---
Reason for Exam: Additional evaluation requested from prior study. Last screening mammogram was performed 12 month(s) ago. Patient History: Menarche at age 13. First Full-Term at age 26. Postmenopausal. Patient has history of breast feeding. Breast cancer, left, age 57. Hormonal Contraceptives for 2 years from age 20 until age 22. 1994, Benign Cyst Aspiration on the left side. 08/05/2017, Lumpectomy on the Left side. 08/05/2017, Malignant Core Biopsy on the left side. 07/17/2017, Malignant Core Biopsy on the left side. 04/23/2012, Benign Cyst Aspiration on the left side. Tissue Density: The breasts are heterogeneously dense, which may obscure small masses. Findings: Analyzed By CAD. Left breast surgical clips. There is no suspicious group of microcalcifications or new suspicious mass. Benign-appearing calcifications left breast. No new suspicious masses, calcifications or distortions. Overall Assessment: Benign, BI-RAD 2 Management: Screening Mammogram of both breasts in 1 year. Results were given to the patient verbally at the time of exam. Patient should continue monthly self-breast exams. A clinical breast exam by your physician is recommended on an annual basis. This exam should not preclude additional follow-up of suspicious palpable abnormalities. Note on Becka scores and lifetime risk: 1. A Becka score greater than 3% is considered moderate risk. If this is the case, consider specialist referral to assess eligibility for a risk reducing agent. 2. If overall lifetime risk for the development of breast cancer is 20% or higher, the patient may qualify for future screening with alternating mammogram and breast MRI. [facility], , 08/16/2024 9:45 AM. Electronically signed and approved by: Say Jacob DO
== END | disposition home or self-care (01) ==
LOC: RADMAMWWP 09:15
PROVIDERS: ATTEND Surgery
DX: R92.2 Inconclusive mammogram (principal); R92.333 Mammographic heterogeneous density, bilateral breasts; Z85.3 Personal history of malignant neoplasm of breast; Z78.0 Asymptomatic menopausal state
CPT/HCPCS: 77062; 77066

== ENCOUNTER → 2024-08-19 | Outpatient (CLI) | payer BC ==
[2024-08-19 10:10] VITALS: BP 135/84; PULSE 94; RESP 18; TEMP 98.3
--- NOTE | 2024-08-19 10:29 | P.PN ---
Subjective Progress Note Date: 08/19/24 Principal diagnosis: Katharine is a 64-year-old white female who is status post lumpectomy for a T2 N1 M0 grade 3 invasive ductal carcinoma of the left breast 08-05-17. She completed a course of chemotherapy. She completed Taxotere/carboplatin. She received perjetta and Herceptin until July 2018. She completed radiation therapy. She was hormone receptor positive and HER-2/shirley positive. She is also on Arimidex. At this time she has no complaints related to her breasts. She has no masses or nodules in her breasts. The patient had some persistent swelling in the lateral aspect of her left breast and she has been ordered a compression bra from physical therapy, this resolved. Not complaining of any new lumps masses or nodules of concern in either breast. Bilateral mammogram 08-19-24 BIRAD 1, personally reviewed and interpreted note medical oncology reviewed from 11-07-23 started on aricept for short term memory loss, tolerating arimidex, bone density Family History: mother: leukemia patient: breast cancer Hormonal History: menarche: 13 : 2, breast fed: both, first at 25 menopause: 50 BCP: 6 months hormones: none Past surgical history: 1. Tonsilloadenoidectomy 2. Left breast lumpectomy 3. gallbladder Past medical history: Osteoporosis started on aricept for memory loss Social History: smoke: none alcohol; none drugs: none - Constitutional Comment: occasional hot flashes Constitutional: Denies chills, Denies fever - EENT Comment: night vision decreased Eyes: denies blurred vision, denies pain Ears, nose, mouth and throat: Denies headache, Denies sore throat - Breasts Breasts: bilateral: as per HPI - Cardiovascular Cardiovascular: Denies chest pain, Denies shortness of breath - Respiratory Respiratory: Denies cough - Gastrointestinal Gastrointestinal: Reports diarrhea, Denies abdominal pain, Denies nausea, Denies vomiting - Genitourinary (Female) Genitourinary: Denies dysuria, Denies hematuria - Menstruation Menstruation: Reports postmenopausal - Musculoskeletal Comment: arthritis knees and back - Integumentary Integumentary: Denies pruritus, Denies rash - Neurological Comment: 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 Neurological: Reports numbness, Denies weakness - Psychiatric Psychiatric: Denies anxiety, Denies depression - Endocrine Endocrine: Reports weight change, Denies fatigue, hypothyroid - Hematologic/Lymphatic Comment: none - Allergic/Immunologic Comment: - Constitutional Comment: eczema of eyelids Constitutional: Denies chills, Denies fever - EENT Eyes: denies blurred vision, denies pain Ears: deny: decreased hearing, tinnitus Ears, nose, mouth and throat: Denies headache, Denies sore throat - Breasts Breasts: bilateral: as per HPI - Cardiovascular Cardiovascular: Denies chest pain, Denies shortness of breath - Respiratory Respiratory: Denies cough - Gastrointestinal Gastrointestinal: Denies abdominal pain, Denies diarrhea, Denies nausea, Denies vomiting - Genitourinary (Female) Genitourinary: Denies dysuria, Denies hematuria - Menstruation Menstruation: Reports postmenopausal - Musculoskeletal Comment: arthritis in knees; joint pain from arimidex - Integumentary Integumentary: Reports as per HPI - Neurological Neurological: Denies numbness, Denies weakness - Psychiatric Psychiatric: Denies anxiety, Denies depression - Endocrine Comment: hypothryoid - Hematologic/Lymphatic Comment: none - Allergic/Immunologic Allergic/Immunologic: Reports seasonal allergies Past Medical History Past Medical History: Cancer Additional Past Medical History / Comment(s): SKIN CANCER MUTIPLE. LT BREAST CANCER 07/2017. do not use lt arm for blood draws or b/p History of Any Multi-Drug Resistant Organisms: None Reported Past Surgical History: Adenoidectomy, Breast Surgery, Cholecystectomy, Tonsillectomy Additional Past Surgical History / Comment(s): left breast lumpectomy with lymph nodes. BASAL CELL CANCER REMOVED FROM VARIOUS SPOTS, Past Anesthesia/Blood Transfusion Reactions: No Reported Reaction Past Psychological History: No Psychological Hx Reported Additional Psychological History / Comment(s): lives in the family home with her . Adult son has moved back home to help. Currently not working. No experience. No extensive travel. No animal exposures. No tobacco use or alcohol use. No recreational drug use Past Alcohol Use History: Rare Past Drug Use History: None Reported - Past Family History Mother Family Medical History: Cancer Additional Family Medical History / Comment(s): leukemia Father Family Medical History: Dementia, Myocardial Infarction ([place]) Additional Family Medical History / Comment(s): PAST IN DECEMBER 2017 Objective - Vital Signs Vital signs: Vital Signs Temp 98.3 F 08/19/24 10:06 Pulse 94 08/19/24 10:06 Resp 18 08/19/24 10:06 BP 135/84 08/19/24 10:06 Pulse Ox 98 08/19/24 10:06 FiO2 Intake & Output 08/18/24 08/19/24 08/19/24 18:59 06:59 18:59 Weight 46.72 kg - Constitutional General appearance: Present: cooperative - EENT Eyes: Present: EOMI ENT: Present: hearing grossly normal - Neck Neck: Present: normal ROM - Respiratory Respiratory: bilateral: CTA - Cardiovascular Rhythm: regular Heart sounds: normal: S1, S2 - Gastrointestinal General gastrointestinal: Present: soft - Integumentary Integumentary: Present: normal turgor - Psychiatric Psychiatric: Present: A&O x's 3, appropriate affect, intact judgment & insight - Additional findings Additional findings: Breast Exam: BRA: 36B Inspection: Postop changes left breast, grade 2 bilateral ptosis Palpation: Right breast: Multi-positional exam fibrocystic changes no dominant masses or nodules of concern Right axilla: No adenopathy of concern Left breast: Multi-positional exam fibrocystic changes no dominant masses or nodules of concern; post operative and postradiation changes Left axilla: No adenopathy of concern Assessment and Plan Assessment: Impression: 1. Patient status post left breast lumpectomy/radiation therapy/chemot herapy/and presently on hormonal therapy (Arimidex) for stage II invasive ductal carcinoma, no evidence of recurrence Fibrocystic breast changes bilateral mammogram on 08-16-24 DEVYNAD 2 personally reviewed and interpreted Plan: Continue to follow with Dr. Lam Somers Patient for bilateral mammogram July 2025 with appointment at that time Follow-up sooner any questions or concerns CC: Dr. Devan James
== END ==
LOC: WWCWWP 09:11
PROVIDERS: ATTEND Surgery
DX: Z90.12 Acquired absence of left breast and nipple (principal); Z92.3 Personal history of irradiation; Z51.11 Encounter for antineoplastic chemotherapy; Z79.890 Hormone replacement therapy; Z85.3 Personal history of malignant neoplasm of breast; Z91.011 Allergy to milk products; N60.19 Diffuse cystic mastopathy of unspecified breast

== ENCOUNTER → 2025-01-18 | Outpatient (CLI) | payer BC | END | disposition home or self-care (01) | LOC: LABWHC1 14:07 | PROVIDERS: ATTEND Psychiatry & Neurology Neurology | DX: R41.81 Age-related cognitive decline (principal); F03.A11 Unspecified dementia, mild, with agitation | CPT/HCPCS: 36415 ==